=== PATIENT | female | born 1985 | race Caucasian/White ===

== ENCOUNTER → 2017-11-10 13:31 | Outpatient (CLI) | payer OTHER, SELFPAY ==
[2017-11-10 19:13] LABS: Chlamydia Trachomatis by PCR Negative (Negative); Neisserai gonorrhoeae by PCR Negative (Negative); Probe Check PASS; Sample Adequacy Control PASS; Specimen Processing Control PASS
[2017-11-18 09:59] LABS: HPV Reflexed? NOT INDICATED
== END ==
PROVIDERS: Visit Provider Obstetrics & Gynecology
DX: Z34.81 Encounter for supervision of other normal pregnancy, first trimester (principal); Z12.4 Encounter for screening for malignant neoplasm of cervix; Z11.3 Encounter for screening for infections with a predominantly sexual mode of transmission
CPT/HCPCS: 87491; 87591; 88175; G0145

== ENCOUNTER 2017-12-07 06:00 | Day surgery (SDC) | payer OTHER, SELFPAY ==
[2017-12-07] VITALS (7 sets, daily range): BP systolic 111–119; BP diastolic 63–72; PULSE 60–71; RESP 16–18; TEMP 36.5–36.6; O2SAT 96–100; BMI 29.5
--- NOTE | 2017-12-07 07:01 | PCM.DC.D&C ---
Discharge Diet: No Restrictions Discharge Activity: May Shower, May Take a Tub Bath Return to work on:: 12/09/17 May resume sexual activity in: 1 week Weight Bearing Status: Weight bearing as tolerated Call your doctor if you observe: Fever of 101 or Higher, Using more than one pad per hour, Uncontrolled pain Additional Instructions: Take Tylenol for mild pain. May add either two Aleve or three (200 mg tab) Ibuprofen every 8 hr as needed for pain. Allergies/Adverse Reactions: Allergies bee venom protein (honey bee) Allergy (Verified 12/07/17 06:23) Anaphylaxis Medications to take at Discharge Vits [Prenatabs FA ] 1 tab PO DAILY 01/15/14 Ibuprofen [Motrin] 800 mg PO TID PRN PRN #30 tablet 08/12/16 Primary Care Physician: Edna Pereyra MD [Primary Care Provider] - Test Results: Test results from this visit will be discussed in further detail at your follow-up appointment, if applicable. Please Follow Up With: Cathy King MD - [phone] When: in 2 wks as planned. Proposed Discharge Date: 12/07/17
--- NOTE | 2017-12-07 07:04 | DCINST_ITS ---
Discharge Diet: No Restrictions Discharge Activity: May Shower, May Take a Tub Bath Return to work on:: 12/09/17 May resume sexual activity in: 1 week Weight Bearing Status: Weight bearing as tolerated Call your doctor if you observe: Fever of 101 or Higher, Using more than one pad per hour, Uncontrolled pain Additional Instructions: Take Tylenol for mild pain. May add either two Aleve or three (200 mg tab) Ibuprofen every 8 hr as needed for pain. Allergies/Adverse Reactions: Allergies bee venom protein (honey bee) Allergy (Verified 12/07/17 06:23) Anaphylaxis Medications to take at Discharge Vits [Prenatabs FA ] 1 tab PO DAILY 01/15/14 Ibuprofen [Motrin] 800 mg PO TID PRN PRN #30 tablet 08/12/16 Primary Care Physician: Edna Pereyra MD [Primary Care Provider] - Test Results: Test results from this visit will be discussed in further detail at your follow- up appointment, if applicable. Please Follow Up With: Cathy King MD - [phone] When: in 2 wks as planned. Proposed Discharge Date: 12/07/17
--- NOTE | 2017-12-07 07:30 | POC_PTH ---
PATIENT: MICHELLE GARNETT [place] [facility] [id number] AGE/SX: 32/F ROOM: RE12/07/[address]: Dr. Cathy King MD : [id number] BED: DIS: 12/07/2017 SPEC #: [id number] RECD: 12/07/17 09:07 STATUS: ARTHUR JEANETH #: [id number] CHAPINCITO: 12/07/17 07:[address]: Cathy King DEPT: SURGICAL PATHOLOGY RECD BY: Francisco Javier Jessica ENTERED: 12/07/17 09:33 SP TYPE: PROD CONC OTHR DR: Dr. Edna Pereyra MD Tissues: Product of conception, NOS Procedures: Surgery Specimen Level IV HEADER OPERATION: Dilation and curettage, suction PRE-OP DIAGNOSIS: Missed TISSUE SUBMITTED: Products of conception MICROSCOPIC DIAGNOSIS Products of conception: Decidua, gestational endometrium and immature chorionic villi (products of conception). SJ:bryan 12/08/17 MICROSCOPIC DESCRIPTION Slides are reviewed. GROSS DESCRIPTION Received in fixative is one container labeled with the patient's name and designated products of conception. The specimen consists of multiple irregular fragments of pink-red soft tissue that in aggregate measure 7 x 8 x 3 cm. tissue is not identified. Research Environmental Scientist tissue is submitted in two cassettes. / MONSE:bryan 12/07/17 TC:5 CPT: 58808
--- NOTE | 2017-12-07 10:09 | PCM.OP.BLANK ---
Operative Report Date of Procedure: 12/07/17 - 9 wk missed SAB PROCEDURE: Suction Dilation and curettage Preoperative Diagnosis: Missed , 9 wk EGA Postop diagnosis: Missed , 9 wk EGA Anesthesia: MAC IV sedation Lakshmi Paredes MD 10 cc 1% lidocaine with 1: 100, 000 epinephrine paracervical block (mamie king) Surgeon: Cathy King MD EBL: Minimal for case Drains: Red britton, minimal clear yellow urine Complications: none Fluids: replacement Findings: Parous cervix. Uterus sounds to 12 cm Narrative account After the R,B,Alternatives of the procedure were reviewed with the patient and her , informed consent was obtained. The patient was taken to the operating room with an IV running and placed in dorsal supine position of the operating table. She was given MAC IV sedation and repositioned to the dorsal lithotomy position and prepped and draped in the usual sterile fashion. A graves speculum was placed into the vagina and the cervix was brought into view. The cervix was parous appearing. A single toothed tenaculum was applied to the anterior lip of the cervix. The cervix was instilled with 10 cc of 1% lidocaine with epinephrine as a paracervical block using a 20 G spinal needle. The cervix was then sequentially dilated to allow admission of the 9 mm curved suction curette tip into the endometrial cavity to the fundus. A suction D and C was then performed followed by a sharp curettage. At sharp curettage good crei was noted. One final pass was conducted with the curved suction curette. Excellent hemostasis was noted. The single toothed tenaculum was removed from the cervix and a RayTec was used to remove any remaining tissue and blood from the upper vagina and cervix. The procedure was terminated. The speculum was removed. The patient was returned to dorsal supine position and awakened from IV sedation and transferred to her recovery room bed in stable condition after tolerating the procedure well. Sponge, lap, needle and instrument counts were correct x two. medications given intraoperatively included 10 cc of 1% lidocaine with 1:100,000 epinephrine instilled as a paracervical block and Toradol 30 mg IV times one. For a complete listing of the medications given intraoperatively, see the anesthesia record.
== END 2017-12-07 08:50 | disposition home or self-care (01) ==
LOC: SDC 06:02 → AC 06:03
PROVIDERS: Family Provider Internal Medicine; PCP Internal Medicine; Visit Provider Obstetrics & Gynecology
PROC: (CPT 59812; principal; 2017-12-07 07:15)
DX: O03.4 Incomplete spontaneous abortion without complication (principal)
CPT/HCPCS: 59812; 36415; 86850; 86900; 88305; 90384; J7120; J2790

== ENCOUNTER 2018-04-18 03:35 | Emergency (ER) | payer OTHER, SELFPAY ==
[2018-04-18 03:36] VITALS: BP 132/81; PULSE 65; RESP 16; TEMP 36.3; O2SAT 98; BMI 30.2
[2018-04-18] MEDS: Mag Hydrox/Al Hydrox/Simeth 30 ML UDC PO (04:18)
[2018-04-18 04:23] LABS: Absolute Lymphocyte Count 2.23 X10^3/ul (0.83-4.51); Absolute Neutrophil Count 5.5 X10^3/uL (2.0-7.7); Basophil# 0.01 X10^3/uL; Basophil% 0.1 % (0-1); Eosinophil# 0.08 X10^3/uL; Hemoglobin 12.6 g/dl (12.0-15.0); Lymphocyte # 2.23 X10^3/ul (4.0); Lymphocyte % 26.7 % (19-41); Mean Corp Hgb Conc 33.2 g/gl (32-36); Mean Corpuscular Hgb 28.8 pg (27.0-32.0); Mean Corpuscular Volume 86.8 fL (81-99); Mean Platelet Vol. 10.7 fl (6.2-12.0); Monocyte# 0.54 X10^3/uL; Monocyte% 6.5 % (0-10); Neutrophil % 65.7 % (47-70); POSITIVE COUNT NO; POSITIVE DIFFERENTIAL NO; POSITIVE MORPHOLOGY NO; Platelet Count 245 K/mm3 (150-450); RBC Distribution Width CV 12.6 % (11.6-14.6); RBC Distribution Width SD 39.4 fl (35.1-43.9); Red Blood Count 4.38 M/mm3 (4.2-5.4); White Blood Count 8.4 K/mm3 (4.4-11.0)
[2018-04-18 04:51] LABS: AST(SGOT) 13 U/L (15-37); Alanine Aminotransfer ALT/SGPT 20 U/L (13-56); Albumin, Serum 3.6 g/dL (3.2-5.0); Alkaline Phosphatase 56 U/L (45-117); Anion Gap 9 (5-15); BUN 9 mg/dL (7-18); BUN/Creat Ratio 14.3 RATIO (10-20); Calcium,Total 9.4 mg/dL (8.5-10.1); Chloride 104 mmol/L (98-107); Creatinine, Serum 0.63 mg/dL (0.55-1.02); EST Glomerular Filtration Rate 117 mL/min (>60); Est Glom Filt Rate - Afr Amer 142 mL/min (>60); Estimated Creatinine Clearance 131.72 ml/min; Globulin 3.7 g/dL (2.2-4.2); Glucose 102 mg/dL (74-106); Lipase 76 U/L (73-393); Potassium 3.7 mmol/L (3.5-5.1); Protein, Total 7.3 g/dL (6.4-8.2); Sodium Level 139 mmol/L (136-145)
--- NOTE | 2018-04-18 04:56 | ED.VISSUMM ---
- ER Visit Summary Date of Service: 04/18/18 Chief Complaint: Abdominal pain History of Present Illness: The patient is a 32 F who presents with epigastric abdominal pain. This began after eating pizza last night. She describes it as aching. She complains of some minimal nausea. No vomiting. No history of prior similar symptoms. She took Tums without relief. No history of gastroesophageal reflux No fever. Physical Examination: Afebrile vitals are normal Patient resting comfortably Moist mucous membranes Heart regular rate and rhythm Lungs are clear Abdomen soft nontender nondistended Alert Test Results: CBC CMP and lipase are normal. Emergency Department Course and Treatment: Patient was treated with a GI cocktail here and reports improvement on reevaluation. We will start her on Prilosec. This may be related to a component of GERD or gastritis. She understands to return for new or worsening symptoms and otherwise to follow-up with her primary care physician. Treatment Plan: [] Disposition: Discharge Impression: Epigastric abdominal pain This note was generated with [employer] dictation software. It may contain incorrect words, spelling, and punctuation that were not noted in review of the chart prior to signing ED Disposition - Plan for ED Patient: Chief Complaint: Abd Pain Referrals: Edna Pereyra MD [Primary Care Provider] -
--- NOTE | 2018-04-18 04:57 | ED.DEP ---
ED Disposition - Plan for ED Patient: Chief Complaint: Abd Pain Instructions: ED Abdominal Pain Unkn Cause, ED GERD Prescriptions: Omeprazole [Prilosec] 20 mg PO DAILY #30 cap Referrals: Edna Pereyra MD [Primary Care Provider] -
[2018-04-18 05:05] VITALS: BP 118/63; PULSE 72; RESP 15; O2SAT 98
--- OUTSIDE RECORDS SUMMARY | 2018-07-20 15:54 | XMS RPT_ITS ---
:1985 Author Organization OHIP Care Team Providers Name Role Phone Edna Pereyra Primary Care Unavailable Jairo Patiño Attending Unavailable Cathy Norton Attending Unavailable Primay Care [place], No Primary Care Unavailable Cathy Norton Attending Unavailable Cathy Norton Referring Unavailable Edna Pereyra Primary Care Unavailable PROBLEMS PROBLEMS DATE TYPE CONDITION / CODE ATTENDING STATUS SOURCE 11/10/2017 Unknown Z11.3 - Encounter Cathy Norton Active [place] for screening for Community infections with a Hospital predominantly Repository sexual mode of transmission / Z11.3(ICD-10) 11/10/2017 Unknown Z12.4 - Encounter Cathy Norton Active [place] for screening for Community malignant neoplasm Hospital of cervix / Repository Z12.4(ICD-10) 11/10/2017 Unknown Z34.81 - Encounter Cathy Norton Active [place] for supervision of Community other normal Hospital , first Repository trimester / Z34.81(ICD-10) PROCEDURES PROCEDURES No Procedure Records FoundRESULTS RESULTS EMERGENCY DEPARTMENT Observed: 04/18/2018 Status: F Source: [place] SUMMARY [facility] AM [facility] Medical Records Department [address] [place] [address] Emergency Department Summary 04/18/18 0456 MR#: [id number] Acct: [id number] Name: MICHELLE GARNETT Rep #: [id number] : 1985 32 From: Jairo Patiño MD PCP: Edna Pereyra MD Status: REG ER - ER Visit Summary Date of Service: 04/18/18 Chief Complaint: Abdominal pain History of Present Illness: The patient is a 32 F who presents with epigastric abdominal pain. This began after eating pizza last night. She describes it as aching. She complains of some minimal nausea. No vomiting. No history of prior similar symptoms. She took Tums without relief. No history of gastroesophageal reflux No fever. Physical Examination: Afebrile vitals are normal Patient resting comfortably Moist mucous membranes Heart regular rate and rhythm Lungs are clear Abdomen soft nontender nondistended Alert Test Results: CBC CMP and lipase are normal. Emergency Department Course and Treatment: Patient was treated with a GI cocktail here and reports improvement on reevaluation. We will start her on Prilosec. This may be related to a component of GERD or gastritis. She understands to return for new or worsening symptoms and otherwise to follow-up with her primary care physician. Treatment Plan: [] Disposition: Discharge Impression: Epigastric abdominal pain This note was generated with MD [employer] dictation software. It may contain incorrect words, spelling, and punctuation that were not noted in review of the chart prior to signing ED Disposition - Plan for ED Patient: Chief Complaint: Abd Pain Referrals: Edna Pereyra MD [Primary Care Provider] - What to do if you have Problems For any increased pain, shortness of breath, bleeding, nausea or vomiting, chest pain, or any unexpected problems, contact your Primary Care Provider. Call [facility] ([phone]) or report to the closest Emergency Room. Call 911 if necessary. 04/18/18 0458 <Electronically signed by Jairo Patiño MD> Date Jairo Patiño MD Cosigner Signature (If Indicated): Date CC: Edna Pereyra MD DISCHARGE INSTRUCTION Observed: 04/18/2018 Status: F Source: [place] 4:58 AM [facility] REPOSITORY [facility] Medical Records Department [address] [place] [address] Discharge Instruction 04/18/18456 MR#: [id number] Acct: [id number] Name: MICHELLE GARNETT Rep #: [id number] : 1985 32 From: Jairo Patiño MD PCP: Edna Pereyra MD Status: REG ER ED Disposition - Plan for ED Patient: Chief Complaint: Abd Pain Instructions: ED Abdominal Pain Unkn Cause, ED GERD Prescriptions: Omeprazole [Prilosec] 20 mg PO DAILY #30 cap Referrals: Edna Pereyra MD [Primary Care Provider] - What to do if you have Problems For any increased pain, shortness of breath, bleeding, nausea or vomiting, chest pain, or any unexpected problems, contact your Primary Care Provider. Call [facility] ([phone]) or report to the closest Emergency Room. Call 911 if necessary. 04/18/18457 <Electronically signed by Jairo Patiño MD> Date Jairo Patiño MD Cosigner Signature (If Indicated): Date CC: Edna Pereyra MD CBC W/DIFF, AUTOMATED Collected: 04/18/2018 Status: F Source: [place] 4:06 AM [facility] REPOSITORY TYPE CODE TESTS RESULT OUT OF RANGE REFERENCE UNITS LAB L100.1000 4.4-11.0 K/mm3 Normal WBC 8.4 LAB L100.1200 4.2-5.4 M/mm3 Normal RBC 4.38 LAB L100.1300 12.0-15.0 g/dl Normal HGB 12.6 LAB L100.1400 37-47 % Normal HCT 38.0 LAB L100.1500 81-99 fL Normal MCV 86.8 LAB L100.1600 27.0-32.0 pg Normal MCH 28.8 LAB L100.1700 32-36 g/gl Normal MCHC 33.2 LAB L100.1810 11.6-14.6 % Normal RDW CV 12.6 LAB L100.1820 35.1-43.9 fl Normal RDW SD 39.4 LAB L100.1900 150-450 K/mm3 Normal PLT 245 LAB L100.2000 6.2-12.0 fl Normal MPV 10.7 LAB L100.2100 47-70 % Normal NEUT% 65.7 LAB L100.2200 19-41 % Normal LY% 26.7 LAB L100.2300 0-10 % Normal MONO% 6.5 LAB L100.2400 0-5 % Normal EO% 1.0 LAB L100.2500 0-1 % Normal BASO% 0.1 LAB L100.2550 0.0-0.9 % Normal IM GRAN % 0.000 Result Comment: IG% - Immature Granulocytes (promyelocytes, myelocytes and metamyelocytes) > 1% indicates that a LEFT SHIFT is Present. LAB L100.2620 2.0-7.7 X10 3/uL Normal Absolute Neut 5.5 LAB L100.2720 0.83-4.51 X10 3/ul Normal Absolute Lymph 2.23 Performed By: #### L100.0100 #### [facility] [address] [place], [place], [address] COMPREHENSIVE METABOLIC Collected: 04/18/2018 Status: F Source: [facility] 4:06 AM [facility] REPOSITORY TYPE CODE TESTS RESULT OUT OF RANGE REFERENCE UNITS LAB L501.0100 74-106 mg/dL Normal GLU 102 Result Comment: Fasting Glucose result from 100 to 125 mg/dL suggests IMPAIRED HOMEOSTASIS per A.D.A. criteria. Please note revised GLUCOSE reference range effective 2017. LAB L501.1000 7-18 mg/dL Normal BUN 9 LAB L501.1100 0.55-1.02 mg/dL Normal CREAT,SERUM 0.63 Result Comment: The validity of the calculated GFR AND GFRAA in patients over 70 years has not been determined. Clinical correlation is essential. LAB L501.1110 >60 mL/min Normal EST GFR 117 Result Comment: Non- GFR Calc LAB L501.1115 >60 mL/min Normal EST GFR - AA 142 Result Comment: GFR Calc LAB L501.1255 ml/min Normal Estimated CRCL 131.72 LAB L501.1300 10-20 RATIO BUN/CRE Normal 14.3 LAB L501.1500 6.4-8. g/dL 2 T PROT Normal 7.3 LAB L501.1800 3.2-5. g/dL 0 ALB Normal 3.6 LAB L501.1950 2.2-4. g/dL 2 GLOB Normal 3.7 LAB L501.2000 0.9-2. RATIO 4 A/G Normal 1.0 LAB L501.2200 8.5-10 mg/dL .1 CA Normal 9.4 LAB L501.4100 15-37 U/L Low AST 13 LAB L501.4305 45-117 U/L ALK P Normal 56 LAB L501.4405 13-56 U/L ALT Normal 20 LAB L501.4600 0.20-1 mg/dL .00 T BILI Normal 0.40 LAB L501.5300 136-14 mmol/L 5 NA Normal 139 LAB L501.5600 3.5-5. mmol/L 1 K Normal 3.7 LAB L501.5900 98-107 mmol/L CL Normal 104 LAB L501.6100 21.0-3 mmol/L 2.0 CO2 Normal 26.0 LAB L501.6200 5-15 GAP Normal 9 Performed By: #### L500.4050, L501.2450 #### [facility] [address] [place], [place], [id number] LIPASE Collected: 04/18/2018 Status: F Source: [place] 4:06 AM [facility] REPOSITORY TYPE CODE TESTS RESULT OUT OF RANGE REFERENCE UNITS LAB L501.2450 73-393 U/L Normal LIPASE 76 Performed By: #### L500.4050, L501.2450 #### [facility] [address] [place], [address] PROGRESS Observed: 03/28/2018 Status: COMPLETED Source: [place] 6:12 PM [facility] [place] REPOSITORY HNO ID: [id number] Author: Shola Torres) Madhuri Service: (none) Author Type: Physician Design Verification Engineer Type: Progress Notes Filed: 03/28/2018 6:14 PM Note Text: Subjective HPI Patient presents with left pain off and on over the past week. She is flying to [employer] tomorrow and wanted to make sure she didn't have an ear infection. No cough or congestion. No fever. No discharge out of the ear. No difficulty hearing. She states her daughter does have a cold right now and has an ear infection herself. No OTC meds taken. Review of Systems HENT: Positive for ear pain. All other systems reviewed and are negative. PAST MEDICAL HISTORY Diagnosis Date - Chronic low back pain No current outpatient prescriptions on file. No current facility-administered medications for this visit. PAST SURGICAL HISTORY Procedure Laterality Date - PAST SURGICAL HISTORY OF pin right middle finger fx FAMILY HISTORY Problem Relation Age of Onset - Hypertension Mother - Hypertension Father - Breast Cancer Maternal Grandmother - Stroke Maternal Grandfather Social History Substance Use Topics - Smoking status: Never Smoker - Smokeless tobacco: Never Used - Alcohol use Yes Comment: very occasional BP 102/70 Pulse 64 Temp 37 ?C (98.6 ?F) (Tympanic) Resp 18 Wt 88.7 kg (195 lb 9.6 oz) Objective Physical Exam Constitutional: She is oriented to person, place, and time and well-developed, well-nourished, and in no distress. HENT: Head: Normocephalic and atraumatic. Right Ear: Tympanic membrane and ear canal normal. No drainage, swelling or tenderness. No mastoid tenderness. Tympanic membrane is not erythematous and not bulging. No middle ear effusion. Left Ear: Tympanic membrane, external ear and ear canal normal. No drainage, swelling or tenderness. No mastoid tenderness. Tympanic membrane is not erythematous and not bulging. No middle ear effusion. Nose: Nose normal. Mouth/Throat: Uvula is midline, oropharynx is clear and moist and mucous membranes are normal. Neck: Normal range of motion. Neck supple. Cardiovascular: Normal rate, regular rhythm and normal heart sounds. Pulmonary/Chest: Effort normal and breath sounds normal. Musculoskeletal: Normal range of motion. Lymphadenopathy: She has no cervical adenopathy. Neurological: She is alert and oriented to person, place, and time. Skin: Skin is warm and dry. No rash noted. Psychiatric: Affect and judgment normal. Nursing note and vitals reviewed. ASSESSMENT/PLAN: 1. Otalgia of left ear - ICD9: 388.70, ICD10: H92.02 Patient's exam is unremarkable. She may have eustachian tube dysfunction. I recommended Motrin and Claritin. Follow-up in the next week if not feeling better. She is agreeable to this. TERESSA WellerOV Observed: 03/28/2018 Status: COMPLETED Source: [place] 5:30 PM [facility] REPOSITORY Office Visit (WSTR) MICHELLE GARNETT ([id number]) 1985 F Date Time Provider Department 03/28/18 5:30 PM SHOLA WALDEN) [facility] During your visit today, we recorded the following information about you: Temperature Pulse Respiration Blood pressure 98.6 degrees 64/minute 18/minute 102/70 Weight 88.7 kg Shola Walden PA-C 03/28/2018 6:14 PM Signed Subjective HPI Patient presents with left pain off and on over the past week. She is flying to [employer] tomorrow and wanted to make sure she didn't have an ear infection. No cough or congestion. No fever. No discharge out of the ear. No difficulty hearing. She states her daughter does have a cold right now and has an ear infection herself. No OTC meds taken. Review of Systems HENT: Positive for ear pain. All other systems reviewed and are negative. PAST MEDICAL HISTORY Diagnosis Date - Chronic low back pain No current outpatient prescriptions on file. No current facility-administered medications for this visit. PAST SURGICAL HISTORY Procedure Laterality Date - PAST SURGICAL HISTORY OF pin right middle finger fx FAMILY HISTORY Problem Relation Age of Onset - Hypertension Mother - Hypertension Father - Breast Cancer Maternal Grandmother - Stroke Maternal Grandfather Social History Substance Use Topics - Smoking status: Never Smoker - Smokeless tobacco: Never Used - Alcohol use Yes Comment: very occasional BP 102/70 Pulse 64 Temp 37 ?C (98.6 ?F) (Tympanic) Resp 18 Wt 88.7 kg (195 lb 9.6 oz) Objective Physical Exam Constitutional: She is oriented to person, place, and time and well-developed, well-nourished, and in no distress. HENT: Head: Normocephalic and atraumatic. Right Ear: Tympanic membrane and ear canal normal. No drainage, swelling or tenderness. No mastoid tenderness. Tympanic membrane is not erythematous and not bulging. No middle ear effusion. Left Ear: Tympanic membrane, external ear and ear canal normal. No drainage, swelling or tenderness. No mastoid tenderness. Tympanic membrane is not erythematous and not bulging. No middle ear effusion. Nose: Nose normal. Mouth/Throat: Uvula is midline, oropharynx is clear and moist and mucous membranes are normal. Neck: Normal range of motion. Neck supple. Cardiovascular: Normal rate, regular rhythm and normal heart sounds. Pulmonary/Chest: Effort normal and breath sounds normal. Musculoskeletal: Normal range of motion. Lymphadenopathy: She has no cervical adenopathy. Neurological: She is alert and oriented to person, place, and time. Skin: Skin is warm and dry. No rash noted. Psychiatric: Affect and judgment normal. Nursing note and vitals reviewed. ASSESSMENT/PLAN: 1. Otalgia of left ear - ICD9: 388.70, ICD10: H92.02 Patient's exam is unremarkable. She may have eustachian tube dysfunction. I recommended Motrin and Claritin. Follow-up in the next week if not feeling better. She is agreeable to this. Shola Walden PA-C Referring Provider: SELF [200] Allergies As of Date: 03/28/2018 (No Known Allergies) Date Reviewed: 03/28/2018 Reviewed by: Lisa Gimenez LPN - Fully Assessed Reason for Visit: left ear pain [Other] Cmt: off and on x 1 week Primary Visit Diagnosis:Otalgia of left ear [H92.02] Problem List As Of Date: 03/28/2018 (None) Encounter Status:Closed by SHOLA WALDEN PA-C on 03/28/18 OPERATIVE REPORT Observed: 12/07/2017 Status: F Source: [place] 2:27 PM [facility] REPOSITORY [facility] Medical Records Department [address] [place] [address] Operative Report 12/07/17 1009 MR#: [id number] Acct: [id number] Name: MICHELLE GARNETT Rep #: [id number] : 1985 32 From: Cathy Norton MD PCP: Edna Pereyra MD Status: [facility] Location: [facility] Operative Report Date of Procedure: 12/07/17 - 9 wk missed SAB PROCEDURE: Suction Dilation and curettage Preoperative Diagnosis: Missed , 9 wk EGA Postop diagnosis: Missed , 9 wk EGA Anesthesia: MAC IV sedation Lakshmi Paredes MD 10 cc 1% lidocaine with 1: 100, 000 epinephrine paracervical block (mamie norton) Surgeon: Cathy Norton MD EBL: Minimal for case Drains: Red britton, minimal clear yellow urine Complications: none Fluids: replacement Findings: Parous cervix. Uterus sounds to 12 cm Narrative account After the R,B,Alternatives of the procedure were reviewed with the patient and her , informed consent was obtained. The patient was taken to the operating room with an IV running and placed in dorsal supine position of the operating table. She was given MAC IV sedation and repositioned to the dorsal lithotomy position and prepped and draped in the usual sterile fashion. A graves speculum was placed into the vagina and the cervix was brought into view. The cervix was parous appearing. A single toothed tenaculum was applied to the anterior lip of the cervix. The cervix was instilled with 10 cc of 1% lidocaine with epinephrine as a paracervical block using a 20 G spinal needle. The cervix was then sequentially dilated to allow admission of the 9 mm curved suction curette tip into the endometrial cavity to the fundus. A suction D and C was then performed followed by a sharp curettage. At sharp curettage good crei was noted. One final pass was conducted with the curved suction curette. Excellent hemostasis was noted. The single toothed tenaculum was removed from the cervix and a RayTec was used to remove any remaining tissue and blood from the upper vagina and cervix. The procedure was terminated. The speculum was removed. The patient was returned to dorsal supine position and awakened from IV sedation and transferred to her recovery room bed in stable condition after tolerating the procedure well. Sponge, lap, needle and instrument counts were correct x two. medications given intraoperatively included 10 cc of 1% lidocaine with 1:100,000 epinephrine instilled as a paracervical block and Toradol 30 mg IV times one. For a complete listing of the medications given intraoperatively, see the anesthesia record. 12/07/17 1427 <Electronically signed by Cathy Norton MD> Date Cathy Norton MD CC: Edna Pereyra MD; Cathy Norton MD Signed PRODUCTS OF CONCEPTION Observed: 12/07/2017 Status: F Source: [place] 7:30 AM [facility] REPOSITORY Patient: MICHELLE GARNETT : 1985 () Acct Num: [id number] Phys: Christine ALCALA,Cathy Unit Num: [id number] Loc: [facility] Specimen: [id number] Received: 12/07/17906 Spec Type: PROD CONC TISSUES TISSUES: Product of conception, NOS GROSS DESCRIPTION Received in fixative is one container labeled with the patient's name and designated products of conception. The specimen consists of multiple irregular fragments of pink-red soft tissue that in aggregate measure 7 x 8 x 3 cm. tissue is not identified. Trust And Estates Attorney tissue is submitted in two cassettes. / Kristen 12/07/17 TC:5 CPT: 05675 HEADER OPERATION: Dilation and curettage, suction PRE-OP DIAGNOSIS: Missed TISSUE SUBMITTED: Products of conception MICROSCOPIC DESCRIPTION Slides are reviewed. MICROSCOPIC DIAGNOSIS Products of conception: Decidua, gestational endometrium and immature chorionic villi (products of conception). Kristen 12/08/17 Signed Shaun Graham 12/08/17 <signature on file> Performed By: #### PPOC #### [facility] [address] [place], [address] DISCHARGE INSTRUCTION Observed: 12/07/2017 Status: F Source: [place] 7:04 AM [facility] REPOSITORY [facility] Medical Records Department [address] [place] [address] Instructions for Home/Discharge Instructions 12/07/17 07 MR#: [id number] Acct: [id number] Name: MICHELLE GARNETT Rep #: [id number] : 1985 32 From: Cathy Norton MD PCP: Edna Pereyra MD Status: REG [facility] Discharge Diet: No Restrictions Discharge Activity: May Shower, May Take a Tub Bath Return to work on:: 12/09/17 May resume sexual activity in: 1 week Weight Bearing Status: Weight bearing as tolerated Call your doctor if you observe: Fever of 101 or Higher, Using more than one pad per hour, Uncontrolled pain Additional Instructions: Take Tylenol for mild pain. May add either two Aleve or three (200 mg tab) Ibuprofen every 8 hr as needed for pain. Allergies/Adverse Reactions: Allergies bee venom protein (honey bee) Allergy (Verified 12/07/17 06:23) Anaphylaxis Medications to take at Discharge Vits [Prenatabs FA ] 1 tab PO DAILY 01/15/14 Ibuprofen [Motrin] 800 mg PO TID PRN PRN #30 tablet 08/12/16 Primary Care Physician: Edna Pereyra MD [Primary Care Provider] - Test Results: Test results from this visit will be discussed in further detail at your follow-up appointment, if applicable. Please Follow Up With: Cathy Norton MD - [phone] When: in 2 wks as planned. Proposed Discharge Date: 12/07/17 12/07/17 07 <Electronically signed by Cathy Norton MD> Date Cathy Norton MD CC: Edna Pereyra MD TYPE AND SCREEN Collected: 12/07/2017 Status: F Source: [place] 6:30 AM [facility] REPOSITORY Order Comment: Reason for Type AND Screen/Red Cells: SURGERY TYPE CODE TESTS RESULT OUT OF RANGE REFERENCE UNITS LAB B10.0800 O Normal BLOOD TYPE GEL NEGATIVE LAB B100.4000 Normal Antibody NEGATIVE Screen Performed By: #### B101.7450 #### [facility] [address] [place], [address] RHOGAM Collected: 12/07/2017 Status: F Source: [place] 6:30 AM [facility] REPOSITORY TYPE CODE TESTS RESULT OUT OF REFERENCE UNITS RANGE LAB U100.2500 [id number] TRANSFUSED PRODUCT: Rho(D) Immune Globulin RhoGam COUNT: 1 Performed By: #### U100.2500 #### [facility] - refer to report for specific site CT/NG [facility] BY PCR Collected: 11/10/2017 Status: F Source: [place] 9:45 AM [facility] REPOSITORY TYPE CODE TESTS RESULT OUT OF RANGE REFERENCE UNITS LAB L8200.2100 Negative Normal Chlam Negative Trac PCR LAB L8200.2200 Negative Normal NG by Negative PCR Performed By: #### L8200.2000 #### [facility] [address] [place], [place], [address] PAP I-G W/RFX HRHPV Collected: 11/10/2017 Status: F Source: [place] 9:45 AM [facility] REPOSITORY Order Comment: CYTOLOGY INFORMATION: - CLINICAL INFORMATION: - DATE LMP/MENOPAUSE: 09/04/17 LMP - COLLECTION VIAL: Thin Prep Vial - FORMWORK CARPENTER SOURCE: CERVICAL/ENDOCERVICAL - COLLECTION TECHNIQUE: BRUSH/SPATULA Specimen Comment: [id number] Specimen Comment: No. of containers..01 ThinPrep Vial TYPE CODE TESTS RESULT OUT OF RANGE REFERENCE UNITS LAB L7400.0800 . Normal DIAGN Comment Result Comment: NEGATIVE FOR INTRAEPITHELIAL LESION AND MALIGNANCY. CELLULAR CHANGES ASSOCIATED WITH INFLAMMATION ARE PRESENT. LAB L7400.0900 . Normal ADEQ Comment Result Comment: Satisfactory for evaluation. Endocervical and/or squamous metaplastic cells (endocervical component) are present. LAB L7400.1400 . Normal PERFORM Comment Result Comment: Ramy Ulloa Armed Security Professional (ASCP) LAB L7400.2575 . Normal TEST METHOD Comment Result Comment: This liquid based ThinPrep(R) pap test was screened with the use of an image guided system. LAB L7400.2600 . Normal . COMM LAB L7400.2700 . Normal PAPSMR Comment Result Comment: The Pap smear is a screening test designed to aid in the detection of premalignant and malignant conditions of the uterine cervix. It is not a diagnostic procedure and should not be used as the sole means of detecting cervical cancer. Both false-positive and false-negative reports do occur. LAB L7400.2800 . Normal HPV RFLX Comment Result Comment: The HPV DNA reflex criteria were not met with this specimen result therefore, no HPV testing was performed. Performed at: [address] [id number] [employer]: Tameka Lopez MD, Phone: [phone] Performed By: #### L7400.0350 #### [facility] (refer to report for specific site) refer to report for address and phone number ALLERGIES ALLERGIES DATE TYPE / CODE NAME / CODE REACTION SEVERITY SOURCE 12/07/2017 Drug bee venom Anaphylaxis Unknown [place] Allergy/416 protein (honey [facility] 737240(SNOM bee)/[id number]( Hospital ED CT) RXNORM) Repository 01/15/2014 Drug No Known Unknown [place] Allergy/416 Allergies/S18526 [facility] 670907(SNOM 0388(RXNORM) Hospital ED CT) Repository Drug NO KNOWN [facility] Class/21996 ALLERGIES [place] 1003(SNOMED Repository CT) ENCOUNTERS ENCOUNTERS ADMIT/DISCHARGE ACCOUNT ADMITTING ENCOUNTER LOCATION SOURCE NUMBER CLASS 04/18/2018/04/18/20 [id number] Emergency [address] ing:ED Repository 03/28/2018/03/30/20 [id number] Ambulatory [address] [place] Repository 12/07/2017/12/08/19 [id number] Ambulatory [address] ing:SDCRoom: Repository AC16 11/10/2017 [id number] Ambulatory [place] [facility] ing:LABSPEC Repository PAYERS PAYERS ENCOUNTER GUARANTOR PAYER SUBSCRIBER SOURCE 04/18/2018 MICHELLE Russell Primary PAULINO Kelly [id number] Insurance:[facility] MEENANDOB: Community [place] CARE [id number] [id number]: Repository [address]Rur: [phone]) [id number] [phone] (HP) Date:4633-15-57OB [address], [place] [address]QY: 04/18/2018 Secondary NOT GIVENUNK [place] Insurance:SELF PAY [facility] Number: Effective Repository Date:2018-04-18 12/07/2017 MICHELLE Russell Primary PAULINO Kelly [id number] Insurance:AUCAREPol MEENANDOB: [facility] Number: [id number] [id number] Repository [address]Sie: ([phone]) Date:9263-12-30AX [phone] () [place] [address]YE: 12/07/2017 Secondary NOT GIVENUNK [place] Insurance:SELF PAY [facility] Number: Effective Repository Date:2017-12-06 11/10/2017 Michelle Kelly [id number] Insurance:[employer]ULTCAREPol MEENANDOB: Community [facility] Number: [id number] [id number] Repository [id number]: ([phone]) Date:[id number] [phone] () [address] [address]YZ: 11/10/2017 Secondary NOT GIVENUNK Leticia Insurance:SELF PAY [facility] Number: Effective Repository Date:2017-11-10
== END 2018-04-18 05:06 | disposition home or self-care (01) ==
LOC: ED 04:02
PROVIDERS: Emergency Provider Emergency Medicine; Family Provider Internal Medicine; PCP Internal Medicine
DX: R10.13 Epigastric pain (principal)
CPT/HCPCS: 80053; 83690; 85025; 99283

== ENCOUNTER → 2018-07-18 16:20 | Outpatient (CLI) | payer OTHER, SELFPAY ==
[2018-07-18 19:13] LABS: hCG Titer Quant., Serum 9816 mIU/mL (<9 non-preg)
== END ==
PROVIDERS: Visit Provider Obstetrics & Gynecology
DX: N91.2 Amenorrhea, unspecified (principal)
CPT/HCPCS: 36415; 84702

== ENCOUNTER 2018-08-04 10:36 | Day surgery (SDC) | payer OTHER, SELFPAY ==
[2018-08-04 11:00] VITALS: BP 116/67; PULSE 60; RESP 18; TEMP 36.9; O2SAT 99; BMI 29.9
--- NOTE | 2018-08-04 12:26 | DCINST_ITS ---
You will use the following diet at home:: No restrictions Your food should be the consistency of: Regular Discharge Activity: Return to Normal Activity, May Drive, May Shower Return to work on:: 08/08/18 May shower in (days): 0 May resume sexual activity in: 3 weeks Call your doctor if your incision/area has: Sudden Increased Bleeding, Increased Pain/ Swelling, Foul Smelling Discharge Call your doctor if you observe: Fever of 101 or Higher, Inability to urinate, Inability to have a bowel movement, Using more than one pad per hour, Shortness of breath, Chest pain, Calf discomfort, Uncontrolled pain Cleanse incision/area with: Soap & Water Allergies/Adverse Reactions: Allergies bee venom protein (honey bee) Allergy (Verified 08/04/18 10:59) Anaphylaxis Medications to take at Discharge Pnv No.95/Ferrous Fum/Folic AC [ Multivitamin Tablet] 1 each PO DAILY 08/03/18 Ibuprofen 600 mg PO 4X/DAY #20 tab 08/04/18 The following prescriptions were given: Ibuprofen 600 mg PO 4X/DAY #20 tab Primary Care Physician: Edna Peeryra MD [Primary Care Provider] - Test Results: Test results from this visit will be discussed in further detail at your follow- up appointment, if applicable. Please Follow Up With: Cathy King MD When: one to two weeks Proposed Discharge Date: 08/04/18
--- NOTE | 2018-08-04 12:26 | PCM.OPRPT ---
Problem List (1) Missed with demise before 20 completed weeks of gestation Status: Acute Report of Operation Date of Procedure: 08/04/18 Pre-Operative Diagnosis: Missed Post-Operative Diagnosis: Same Surgery/Procedure Performed:: Suction D and C Description of Surgical Findings:: Normal appearing cervix and vagina. Uterus 8 weeks size. Products of conception appropriate for gestational age at time of demise. technical support manager: None Type of Anesthesia:: MAC Anesthesiologist: Martell Shelton Special Medications: none Specimen's removed: Products of conception Drains: none Estimated Blood Loss (mL): minimal Fluids Replaced: 400cc LR Description of Procedure: Donna was taken to the OR with IV running. She was placed under MAC anesthesia without complication. She was then prepped and draped in the dorsal lithotomy position. The bladder was drained. The uterus was palpated and found to be about 8 weeks size. A single toothed tenaculum was placed on the anterior lip of the cervix. The cervix was then dilated to 28 Bengali without difficulty. A #8 suction curette was then placed to the fundus of the uterus and suction applied. The suction curette was then removed and a sharp curettage was performed to a gritty texture throughout the endometrial cavity. The suction curette was reintroduced suction applied and the remaining products of conception were obtained. All instruments were then removed from the vagina. Hemostasis was excellent. She was reversed from anesthesia and taken to the recovery room in stable condition. She was given rhogam intramuscularly prior to discharge. Grafts/Implants Used: none - Complications none - Admit VTE Documentation VTE Present on Admission: No VTE Mechan Device Prophylaxis: SCD's VTE Pharm Prophylaxis ordered?: No
--- NOTE | 2018-08-04 12:30 | POC_PTH ---
PATIENT: MICHELLE GARNETT [place] [facility] [id number] AGE/SX: 33/F ROOM: RE08/04/[address]: Dr. Maria Fernanda Cazares MD : [id number] BED: DIS: 08/04/2018 SPEC #: [id number] RECD: 08/04/18 13:02 STATUS: ARTHUR RERuth Ann #: [id number] CHAPINCITO: 08/04/18 12:[address]: Magnus Mace DEPT: SURGICAL PATHOLOGY RECD BY: Francisco Javier Jessica ENTERED: 08/04/18 13:21 SP TYPE: PROD CONC OTHR DR: MD Dr. Maria Fernanda Mock MD Tissues: Product of conception, NOS Procedures: Surgery Specimen Level IV HEADER OPERATION: Dilation and curettage, suction PRE-OP DIAGNOSIS: Missed TISSUE SUBMITTED: Products of conception MICROSCOPIC DIAGNOSIS Products of conception: Decidua, gestational endometrium and immature chorionic villi (products of conception). SJ:bryan 08/05/18 MICROSCOPIC DESCRIPTION Slides are reviewed. GROSS DESCRIPTION Received fresh in a vacuum trap labeled with the patient's name and designated products of conception. The specimen consists of multiple irregular fragments of walker-pink soft tissue that in aggregate measure 2.5 x 1 x 0.5 cm. The specimen is totally submitted in three cassettes. / CE:bryan 08/04/18 TC:5 CPT: 81382
--- NOTE | 2018-08-04 12:30 | OP.PCM_ITS ---
Problem List (1) Missed with demise before 20 completed weeks of gestation Status: Acute Report of Operation Date of Procedure: 08/04/18 Pre-Operative Diagnosis: Missed Post-Operative Diagnosis: Same Surgery/Procedure Performed:: Suction D and C Description of Surgical Findings:: Normal appearing cervix and vagina. Uterus 8 weeks size. Products of conception appropriate for gestational age at time of demise. broaching machine repairer: None Type of Anesthesia:: MAC Anesthesiologist: Martell Shelton Special Medications: none Specimen's removed: Products of conception Drains: none Estimated Blood Loss (mL): minimal Fluids Replaced: 400cc LR Description of Procedure: Donna was taken to the OR with IV running. She was placed under MAC anesthesia without complication. She was then prepped and draped in the dorsal lithotomy position. The bladder was drained. The uterus was palpated and found to be about 8 weeks size. A single toothed tenaculum was placed on the anterior lip of the cervix. The cervix was then dilated to 28 Indonesian without difficulty. A #8 suction curette was then placed to the fundus of the uterus and suction jacque lied. The suction curette was then removed and a sharp curettage was performed to a gritty texture throughout the endometrial cavity. The suction curette was reintroduced suction applied and the remaining products of conception were obtained. All instruments were then removed from the vagina. Hemostasis was excellent. She was reversed from anesthesia and taken to the recovery room in stable condition. She was given rhogam intramuscularly prior to discharge. Grafts/Implants Used: none - Complications none - Admit VTE Documentation VTE Present on Admission: No VTE Mechan Device Prophylaxis: SCD's VTE Pharm Prophylaxis ordered?: No
[2018-08-04 12:48] VITALS: BP 105/56; BP 116/67; PULSE 58; RESP 16; TEMP 37.2; O2SAT 94
[2018-08-04 12:55] VITALS: BP 116/67; BP 98/52; PULSE 55; RESP 16; O2SAT 95
[2018-08-04 13:00] VITALS: BP 101/54; BP 116/67; PULSE 53; RESP 16; O2SAT 96
[2018-08-04 13:10] VITALS: BP 100/59; BP 116/67; PULSE 55; RESP 16; TEMP 36.9; O2SAT 95
[2018-08-04 14:25] VITALS: BP 116/67
--- NOTE | 2018-08-05 07:53 | PCM.HP.STD ---
Problem List (1) Missed with demise before 20 completed weeks of gestation Status: Acute (2) Missed with demise before 20 completed weeks of gestation Status: Acute History of Present Illness Date of Admission: 08/04/18 Chief Complaint: demise at 8 weeks ega The patient is a 33 year old F [with embryonic demise at about 8 weeks ega. 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 Lives: Spouse/ Significant Other Smoking Status: Never smoker Alcohol: None Drugs: None Review of Systems Constitutional: Denies: Chills, Fever Cardiovascular: Denies: Chest Pain, Chest Tightness, Edema Respiratory: Denies: Cough, Shortness of Breath Gastrointestinal: Denies: Abdominal Pain Genitourinary: Denies: Dysuria Gynecological: Denies: Breast symptoms VTE Information - Inpt Only VTE Present on Admission: No VTE Mechan Device Prophylaxis: SCD's VTE Pharm Prophylaxis ordered?: No Subjective: Appears well Objective: Afeb VSS - Physical Exam General: Alert, Oriented x3, Cooperative, No apparent distress Lungs: Clear to auscultation, Normal air movement Cardiovascular: Regular rate, Regular Rhythm Abdomen: Soft, Non Tender, Non-Distended Extremities: No edema Skin: No rashes Neurological: Neuro grossly intact Psych/Mental Status: Normal Affect Vital Signs Temp Pulse Resp BP Pulse Ox 98.5 F 55 L 16 100/59 L 95 08/04/18 13:10 08/04/18 13:10 08/04/18 13:10 08/04/18 13:10 08/04/18 13:10 Oxygen Delivery Method Room Air Weight: 197 lb 5.019 oz Body Mass Index (BMI) 29.9 Intake and Output for Last 24 Hours 08/03/18 08/04/18 08/05/18 23:59 23:59 23:59 Intake Total 600 / 600 Output Total 50 / 50 Balance 550 / 550 Laboratory Tests Past 24 Hrs 08/04/18 11:10 Blood Type O NEGATIVE Antibody Screen POSITIVE H Antibody Identification ANTI-D Assessment/Plan All Active Problems Missed with demise before 20 completed weeks of gestation (Acute) Missed with demise before 20 completed weeks of gestation (Acute) Scheduled for suction d and c. Procedures, risks, and postoperative expectations discussed.
--- NOTE | 2018-08-05 07:56 | HP.PCM_ITS ---
Problem List (1) Missed with demise before 20 completed weeks of gestation Status: Acute (2) Missed with demise before 20 completed weeks of gestation Status: Acute History of Present Illness Date of Admission: 08/04/18 Chief Complaint: demise at 8 weeks ega The patient is a 33 year old F [with embryonic demise at about 8 weeks ega. 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 Lives: Spouse/ Significant Other Smoking Status: Never smoker Alcohol: None Drugs: None Review of Systems Constitutional: Denies: Chills, Fever Cardiovascular: Denies: Chest Pain, Chest Tightness, Edema Respiratory: Denies: Cough, Shortness of Breath Gastrointestinal: Denies: Abdominal Pain Genitourinary: Denies: Dysuria Gynecological: Denies: Breast symptoms VTE Information - Inpt Only VTE Present on Admission: No VTE Mechan Device Prophylaxis: SCD's VTE Pharm Prophylaxis ordered?: No Subjective: Appears well Objective: Afeb VSS - Physical Exam General: Alert, Oriented x3, Cooperative, No apparent distress Lungs: Clear to auscultation, Normal air movement Cardiovascular: Regular rate, Regular Rhythm Abdomen: Soft, Non Tender, Non-Distended Extremities: No edema Skin: No rashes Neurological: Neuro grossly intact Psych/Mental Status: Normal Affect Vital Signs Temp Pulse Resp BP Pulse Ox 98.5 F 55 L 16 100/59 L 95 08/04/18 13:10 08/04/18 13:10 08/04/18 13:10 08/04/18 13:10 08/04/18 13:10 Oxygen Delivery Method Room Air Weight: 197 lb 5.019 oz Body Mass Index (BMI) 29.9 Intake and Output for Last 24 Hours 08/03/18 08/04/18 08/05/18 23:59 23:59 23:59 Intake Total 600 / 600 Output Total 50 / 50 Balance 550 / 550 Laboratory Tests Past 24 Hrs 08/04/18 11:10 Blood Type O NEGATIVE Antibody Screen POSITIVE H Antibody Identification ANTI-D Assessment/Plan All Active Problems Missed with demise before 20 completed weeks of gestation (Acute) Missed with demise before 20 completed weeks of gestation (Acute) Scheduled for suction d and c. Procedures, risks, and postoperative expectations discussed.
== END 2018-08-04 14:29 | disposition home or self-care (01) ==
LOC: SDC 10:37 → AC 10:39
PROVIDERS: Obstetrics & Gynecology; Family Provider Internal Medicine; PCP Internal Medicine; Referring Provider Obstetrics & Gynecology; Visit Provider Obstetrics & Gynecology
PROC: (CPT 59812; principal; 2018-08-04 12:15)
DX: O03.4 Incomplete spontaneous abortion without complication (principal)
CPT/HCPCS: 59812; 86850; 86870; 86900; 88305; 90384; J7120; J2405; J2790

== ENCOUNTER → 2018-11-07 08:39 | Outpatient (CLI) | payer OTHER, SELFPAY ==
[2018-11-07 10:58] LABS: hCG Titer Quant., Serum 379 mIU/mL (1-3)
== END ==
PROVIDERS: PCP Internal Medicine; Visit Provider Obstetrics & Gynecology
DX: O26.21 Pregnancy care for patient with recurrent pregnancy loss, first trimester (principal); Z3A.00 Weeks of gestation of pregnancy not specified
CPT/HCPCS: 36415; 84702

== ENCOUNTER → 2018-11-09 08:56 | Outpatient (CLI) | payer OTHER, SELFPAY ==
[2018-11-09 10:51] LABS: hCG Titer Quant., Serum 763 mIU/mL (1-3)
== END ==
PROVIDERS: Visit Provider Obstetrics & Gynecology
DX: Z34.81 Encounter for supervision of other normal pregnancy, first trimester (principal); N96 Recurrent pregnancy loss
CPT/HCPCS: 36415; 84702

== ENCOUNTER 2019-02-20 19:52 | Outpatient (CLI) | payer OTHER, SELFPAY ==
[2019-02-20 20:25] VITALS: BMI 29.7
[2019-02-20 20:44] LABS: Color, Urine Straw (Yellow); Glucose, Dipstick Normal (Normal); Ketone-Dipstick Negative (Negative); Leukocyte Esterase-Dipstick Negative /ul (Negative); Nitrite-Dipstick Negative (Negative); Occult Blood-Urine Negative /ul (Negative); Protein-Dipstick Negative (Negative); Specific Gravity, Urine 1.005 (1.002-1.030); Urine Bilirubin Dipstick Negative (Negative); Urine Clarity Clear (Clear); Urine Urobilinogen Normal (Normal)
[2019-02-20] MEDS: Famotidine 20 MG Tablet PO (21:41)
[2019-02-20 22:01] VITALS: RESP 18
--- NOTE | 2019-03-15 19:14 | OB.TRI.NOTE ---
History of Present Illness Date of Service: 02/20/19 Was patient seen by the physician?: No Reason For Visit: R/O Date of Service: 02/20/19 Final JAZMIN: 07/13/19 Final JAZMIN Source: US <20 weeks Gestational age: 19 Weeks and 4 Days History of Present Illness: Reporting that she has been having periodic sharp shooting pains that shoot straight across her abdomen and around to her back, then adds that they started yesterday for several hours, stopped and returned this afternoon approximately 1530 and has been intermittently since then. Denies burning/pain with urination. Denies spotting/bleeding. FM noted. Admits to drinking at least 4 of my Yetti cups of water a day. Allergies bee venom protein (honey bee) Allergy (Verified 02/20/19 20:27) Anaphylaxis Laboratory Studies: Laboratory Tests 02/20/19 Range/Units 20:00 Urine Color Straw (Yellow) Urine Clarity Clear (Clear) Urine pH 7.0 (5.0 - 8.0) Ur Specific [place] 1.005 (1.002-1.030) Urine Protein Negative (Negative) mg/dl Urine Glucose (UA) Normal (Normal) mg/dl Urine Ketones Negative (Negative) mg/dl Urine Occult Blood Negative (Negative) /ul Urine Nitrite Negative (Negative) Urine Bilirubin Negative (Negative) mg/dL Urine Urobilinogen Normal (Normal) mg/dl Ur Leukocyte Esterase Negative (Negative) /ul Physical Exam Vitals: Vital Signs Resp 18 02/20/19 22:01 NST - FHR Rate Baby A NST Reactive:: Appropriate for gestational age Impression/Plan 19+ week intrauterine presents with abdominal discomfort, likely round ligament pain. Urine analysis was negative. Advised to take some Tylenol, increase water and lay on (L) side use warm or cool compresses for comfort. If discomfort persists return to office or L and D for evaluation.
== END 2019-02-20 21:50 | disposition home or self-care (01) ==
LOC: WPOUT 20:22 → WP 20:23
PROVIDERS: Referring Provider Obstetrics & Gynecology; Visit Provider Obstetrics & Gynecology
DX: O26.892 Other specified pregnancy related conditions, second trimester (principal); R10.9 Unspecified abdominal pain; Z3A.19 19 weeks gestation of pregnancy
CPT/HCPCS: 59050; 81002; 99218; G0378

== ENCOUNTER → 2019-06-05 | Outpatient (CLI) | payer OTHER, SELFPAY ==
[2019-06-05 10:45] LABS: ROM Internal Control Test YES-OK TO RESULT pt. (Internal QC)
[2019-06-05 11:05] LABS: ROM Patient Test Negative (Negative)
[2019-06-05 11:13] LABS: Fetal Fibronectin Negative
== END | disposition home or self-care (01) ==
LOC: LABSPEC 10:36
PROVIDERS: Visit Provider Obstetrics & Gynecology
DX: Z34.83 Encounter for supervision of other normal pregnancy, third trimester (principal)
CPT/HCPCS: 82731; 84112

== ENCOUNTER 2019-07-03 18:35 | Inpatient (IN) | payer OTHER, SELFPAY ==
[2019-07-03] VITALS (22 sets, daily range): BP systolic 94–136; BP diastolic 51–83; PULSE 58–83; TEMP 97.9–98.5; O2SAT 93–100; BMI 33.5
[2019-07-03] MEDS: Lactated Ringers 1,000 ML 50 ML IV (18:55)
--- NOTE | 2019-07-03 18:56 | PCM.HP.OB ---
- Problem List (1) 38 weeks gestation of Status: Acute (2) Polyhydramnios affecting in third trimester Status: Acute History Date of Admission: 07/03/19 Final JAZMIN: 07/13/19 Final JAZMIN Source: US <20 weeks Gestational age: 38 Weeks and 4 Days History of this : This is a 34 year-old, G [5], P [2], at 38.4 weeks gestational age. Allergies bee venom protein (honey bee) Allergy (Verified 02/20/19 20:27) Anaphylaxis Home Medications: Home Medications Pnv No.95/Ferrous Fum/Folic AC [ Multivitamin Tablet] 1 each PO DAILY 08/03/18 Amoxicillin [Amoxil] 500 mg PO BID 07/03/19 Smoking Status: Never smoker Alcohol: None Number of Fetus(es): 1 NST - FHR Rate Baby A Baseline: 140 Variability:: Moderate Accelerations:: 15 x 15 Decelerations:: None NST Reactive:: Yes FHR Category:: Category I Uterine Activity:: Q2-3minutes History Past Pregnancies: PRIOR DELIVERY HISTORY DEL DATE GEST LAB WT LB WT OZ TYPE ANES LABOR TX 04 Aug 19 10 0 0 0 Sab General No Dec 18 10 0 0 0 Sab General No 12 Aug 17 40 3 9 7 Vag Epidural No Jan 14 39 19 7 3 Vag Epidural No Labs: Mom's Problem List Problem Status Onset Code 38 weeks gestation of Acute Z3A.38 Polyhydramnios affecting in third trimester Acute O40.3XX0 Mom's Labs & Results 07/03/19 07/03/19 18:50 18:50 WBC 8.2 RBC 3.96 L Hgb 11.2 L Hct 33.7 L MCV 85.1 MCH 28.3 MCHC 33.2 RDW Std Deviation 40.3 RDW Coeff of Diana 13.2 Plt Count 225 MPV 11.5 Immature Gran % (Auto) 0.400 Neut % (Auto) 59.7 Lymph % (Auto) 32.1 [place] % (Auto) 6.6 Eos % (Auto) 1.1 Baso % (Auto) 0.1 Absolute Neuts (auto) 4.9 Absolute Lymphs (auto) 2.62 Nucleated RBC % 0 Blood Type O NEGATIVE Antibody Screen NEGATIVE Course Did the patient receive Yes care? Labs Blood Type: O RH: NEGATIVE RPR/VDRL/Syphilis Nonreactive Rubella status Immune HbSAg Negative Date Done: 12/29/18 Chlamydia Negative Gonorrhea Negative HIV/AIDS Non-Reactive Group B Strep: Positive Current Obstetrical History Gestational Diabetes No Incompetent Cervix No Infertility No IUGR No Macrosomia No Hypertension/Pre-eclampsia No Placenta Previa/Abruption No PTL/PROM No Uterine anomaly No Oligohydramnios No Polyhydramnios Yes Multiple gestation No Past Medical History Asthma No Diabetes No Hypertension No Heart disease No Mitral valve prolapse No Neurologic/Seizure disorder/ No Migraines Kidney disease No Liver disease No Varicosities No Clotting disorders/Hx of DVT No Thyroid Dysfunction No Other medical diseases No Psychiatric disorders No Major trauma No Abnormal PAP smear No Sleep apnea No Mammogram in the last 2 years No Social History Marital Status: Alleged father Marcial Nuñez Hx Smoking No Smoking Status Never smoker Expected Delivery Method: Spontaneous Vaginal Number of Visits: 20 Review of Systems Constitutional: Denies: Chills, Fever, Weight Change HEENT: Denies: Head Aches, Sinus Congestion, Sinus Drainage Cardiovascular: Denies: Chest Pain, Palpitations Respiratory: Denies: Cough, Shortness of breath at rest, Sputum production Gastrointestinal: Denies: Abdominal Pain, Nausea, Vomiting Genitourinary: Denies: Dysuria Musculoskeletal: Denies: Joint Pain, Joint Tenderness Skin: Denies: Rash, Wounds Neurological: Denies: Numbness, Tingling, Focal weakness Psychiatric: Denies: Anxiety, Depression, Homicidal Ideations, Suicidal Ideations Hematologic/ Lymphatic: Denies: Easy Bruising, Easy Bleeding Physical Exam General: Alert, Oriented x3, No apparent distress HEENT: Atraumatic, Normocephalic. 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 Negative for: Vulvar lesions Estimated gestational size: Appropriate for gestational size Presentation: Cephalic Cervix Dilation (cm): 5 Station: -2 Effacement (%): 80 Assessment/Plan All Active Problems Missed with demise before 20 completed weeks of gestation (Acute) Missed with demise before 20 completed weeks of gestation (Acute) 38 weeks gestation of (Acute) Polyhydramnios affecting in third trimester (Acute) A: This is a 34 year-old, G [5], P [2], at 38.4 weeks gestational age. Known polyhydramnios with FORREST of 20.3 and EFW +10lbs. SVE 5/80/-2 with bulging bag of fluid, two hours previously in the office typewriter mechanic assessed and 4/75/-2 NST Category I with FHR baseline 140, +accels, -decels, moderate variability UC 2-3 minutes rating them as moderate Active labor P: Admit for labor Plans epidural for pain management then wishes to have AROM Expect
[2019-07-03 19:35] LABS: Absolute Lymphocyte Count 2.62 X10^3/uL (0.83-4.51); Absolute Neutrophil Count 4.9 X10^3/uL (2.0-7.7); Basophil# 0.01 X10^3/uL; Basophil% 0.1 % (0-1); Eosinophil# 0.09 X10^3/uL; Eosinophils% 1.1 % (0-5); Hematocrit 33.7 % (37-47); Hemoglobin 11.2 g/dL (12.0-15.0); Lymphocyte # 2.62 X10^3/ul (4.0); Lymphocyte % 32.1 % (19-41); Mean Corp Hgb Conc 33.2 g/dL (32-36); Mean Corpuscular Hgb 28.3 pg (27.0-32.0); Mean Corpuscular Volume 85.1 fL (81-99); Mean Platelet Vol. 11.5 fl (6.2-12.0); Monocyte# 0.54 X10^3/uL; Monocyte% 6.6 % (0-10); NRBC Flagged by Analyzer 0 % (0-5); Neutrophil # 4.88 X10^3/uL (2.7-7.7); Neutrophil % 59.7 % (47-70); Platelet Count 225 K/mm3 (150-450); RBC Distribution Width CV 13.2 % (11.6-14.6); RBC Distribution Width SD 40.3 fl (35.1-43.9); Red Blood Count 3.96 M/mm3 (4.2-5.4); White Blood Count 8.2 K/mm3 (4.4-11.0)
[2019-07-03] MEDS: Lactated Ringers 500 ML 999 ML IV ×2 (19:45→20:43)
[2019-07-03] MEDS: fentaNYL-bupivacaine (epidural) 100 ML BAG EPIDURAL (20:38)
--- NOTE | 2019-07-03 22:02 | PCM.PN.BLA ---
Progress Note S: Feeling well after epidural. Not having any pain. O: VSS SVE 6/80/-2 FHR baseline 135, +accels, -decels, moderate variability UC 2-3 minutes A: Active labor NST Category I Epidural in place and effective P: AROM at 2053, clear amniotic fluid Continue with labor Continuous FM Expect
[2019-07-03] MEDS: Lactated Ringers 1,000 ML 200 ML IV (22:20)
[2019-07-04] VITALS (34 sets, daily range): BP systolic 109–133; BP diastolic 57–95; PULSE 65–98; RESP 11–18; TEMP 36.2–36.7; O2SAT 95–100
[2019-07-04] MEDS: fentaNYL-bupivacaine (epidural) 100 ML BAG EPIDURAL ×2 (01:07→05:47)
[2019-07-04] MEDS: Lactated Ringers 500 ML 999 ML IV (02:22)
[2019-07-04] MEDS: Lactated Ringers 1,000 ML 200 ML IV ×2 (04:12→10:23)
--- NOTE | 2019-07-04 08:00 | PCM.PN.BLA ---
Progress Note S: Feeling okay with little pressure during contractions O: VSS SVE 10/100/+1 FHR baseline 140, + accels, -decels, moderate variability A: Category I FHR Complete and ready to push P: Educated patient on risks of arrest of descent, shoulder dystocia and hemorrhage. Aware of all protocols Expect Dr. Neal updated on patients progress
[2019-07-04] MEDS: Oxytocin 30 units/NS 500 ml 30 UNITS/500 ML IV.SOLN IV (09:05)
[2019-07-04] MEDS: Sodium Citrate/Citric Acid 30 ML UDC PO (12:23)
--- NOTE | 2019-07-04 12:44 | PCM.PN.BLA ---
Progress Note Patient seen. Reviewed labor course and second stage w/ arrest of descent. Advised section. PMH reviewed and discussed. Discussed related risks including but not limited to bleeding, VTE, infection, injury to abdominal viscus, need for further surgery, life threatening complications. Patient and family given opportunity to ask questions and questions answered to their satisfaction. Proceed with section.
[2019-07-04] MEDS: Oxytocin 30 units/NS 500 ml 30 UNITS/500 ML IV.SOLN 167 UNITS IV (14:35)
[2019-07-04] MEDS: Lactated Ringers 1,000 ML 100 ML IV (17:55)
[2019-07-04] MEDS: Ketorolac 30 MG/ML Syringe IV (19:47)
[2019-07-04] MEDS: Cefazolin 1 GM/50 ML BAG IV (20:47)
[2019-07-04] MEDS: 0.9% Saline Lock 10 ML Syringe IV (21:21)
[2019-07-04] MEDS: Ondansetron 4 MG/2 ML Vial IV (21:21)
[2019-07-05] MEDS: Ketorolac 30 MG/ML Syringe IV (01:39)
[2019-07-05] MEDS: 0.9% Saline Lock 10 ML Syringe IV ×2 (01:40→08:25)
[2019-07-05 01:47] VITALS: PULSE 72; RESP 14; O2SAT 95
[2019-07-05] MEDS: Cefazolin 1 GM/50 ML BAG IV (04:12)
[2019-07-05 04:15] VITALS: BP 105/59; PULSE 62; RESP 18; TEMP 36.2
[2019-07-05 06:37] LABS: Hemoglobin 7.9 g/dL (12.0-15.0); Mean Corp Hgb Conc 32.9 g/dL (32-36); Mean Corpuscular Hgb 28.5 pg (27.0-32.0); Mean Corpuscular Volume 86.6 fL (81-99); Mean Platelet Vol. 10.8 fl (6.2-12.0); Platelet Count 155 K/mm3 (150-450); RBC Distribution Width CV 13.5 % (11.6-14.6); RBC Distribution Width SD 41.8 fl (35.1-43.9); Red Blood Count 2.77 M/mm3 (4.2-5.4); White Blood Count 8.2 K/mm3 (4.4-11.0)
--- NOTE | 2019-07-05 06:57 | PCM.PN.OB ---
Patient Problems: Active and Suspected Problems 38 weeks gestation of (Acute) Polyhydramnios affecting in third trimester (Acute) Subjective: Voided without difficulty, out of bed and ambulating. Denies lightheadedness, shortness of breath or chest pain. Feels well overall. Had nausea yesterday, but now resolved and tolerates PO. Denies heavy lochia. Infant nursing well. Objective: AVSS - Physical Exam Vitals/I&O's: Vital Signs Temp Pulse Resp BP Pulse Ox 97.2 F L 62 18 105/59 L 95 07/05/19 04:15 07/05/19 04:15 07/05/19 04:15 07/05/19 04:15 07/05/19 01:47 Oxygen Delivery Method Room Air Weight: 100.244 kg Body Mass Index (BMI) 33.5 Intake and Output for Last 24 Hours 07/03/19 07/04/19 07/05/19 23:59 23:59 23:59 Intake Total 2415 / 2415 5346.49 / 5346.49 843.33 / 843.33 Output Total 200 / 200 3600 / 3600 Balance 2215 / 2215 1746.49 / 1746.49 843.33 / 843.33 General: Alert, Oriented x3, Cooperative, No apparent distress HEENT: Atraumatic, Normocephalic Lungs: Clear to auscultation, Normal air movement Cardiovascular: Regular rate, Regular Rhythm, Normal S1, Normal S2 Abdomen: Bowel Sounds Present, Soft, Non Tender, Non-Distended, - - Fundus firm and nontender, incisional dressing c/d/i Extremities: No Calf Tenderness, - - trace LE edema Neurological: Neuro grossly intact Psych/Mental Status: Normal Affect, Appropriate, Alert and oriented to time, place, person, mood and affect Laboratory Results 07/03/19 18:50: Crossmatch See Detail 07/04/19 15:15: Screen NEGATIVE, Baby's Blood Type O POSITIVE, Baby's CHEL NEGATIVE 07/05/19 06:13: WBC 8.2, RBC 2.77 L, Hgb 7.9 L, Hct 24.0 L, MCV 86.6, MCH 28.5, MCHC 32.9, RDW Std Deviation 41.8, RDW Coeff of Diana 13.5, Plt Count 155, MPV 10.8 Current Medications Acetaminophen (Tylenol) 1,000 mg PO Q8H PRN PRN Reason: Pain Score 1-3/10 Amoxicillin (Amoxil) 500 mg PO BID KASH Bisacodyl (Dulcolax) 10 mg RECTAL UD PRN PRN Reason: If no BM Diphenhydramine HCl (Benadryl) 25 mg PO Q6H PRN PRN PRN Reason: ITCHING Stop: 07/05/19 16:11 Hydrocortisone (Hytone) 1 applic TOPICAL TID PRN PRN; Protocol PRN Reason: Discomfort Lactated Ringer's () 1,000 mls @ 100 mls/hr IV .Q10H KASH Last Admin: 07/05/19 01:52 Dose: Not Given Documented by: Naloxone HCl 4 mg/ Dextrose 504 mls @ 0 mls/hr IV .Q0M PRN; Protocol PRN Reason: Respiratory depression Ibuprofen (Motrin) 600 mg PO Q6H PRN PRN PRN Reason: Pain Score 1-3/10 Ketorolac Tromethamine (Toradol (Bkc)) 30 mg IV Q6H [facility] Stop: 07/06/19 14:01 Methylergonovine Maleate (Methergine) 0.2 mg IM X1 PRN PRN Reason: Uterine Atony Naloxone HCl (Narcan) 0.02 mg IV Q1M PRN PRN Reason: RR <10 and pt unresponsive Ondansetron HCl (Zofran) 4 mg IV Q4H PRN PRN PRN Reason: Nausea Last Admin: 07/04/19 21:21 Dose: 4 mg Documented by: Oxycodone HCl (Oxyir) 5 - 10 mg PO Q4H PRN PRN PRN Reason: Pain Score 4-10/10 Multivit/Folic Acid/Iron (Prenatabs Fa) 1 tablet PO DAILY@1200 KASH Senna/Docusate Sodium (Senokot-S, Yamileth-Colace) 0 tablet PO DAILY PRN PRN Reason: Constipation Simethicone (Mylicon) 80 mg PO PCHS PRN PRN Reason: Indigestion/stomach pain Sodium Chloride () 5 - 15 ml IV UD PRN PRN Reason: SALINE FLUSH Last Admin: 07/05/19 01:40 Dose: 10 ml Documented by: Medical Necessity - Tobacco Use Smoking Status: Never smoker Assessment/Plan All Active Problems 38 weeks gestation of (Acute) Polyhydramnios affecting in third trimester (Acute) 34yo POD#1 s/p PLTCS complicated by hemorrhage doing well. -H/H appropriate, repeat cbc in am -Rh negative, s/p Rhogam -Routine postop care -
[2019-07-05 07:00] VITALS: BP 110/64; PULSE 64; RESP 18; TEMP 36.2; O2SAT 99
--- NOTE | 2019-07-05 08:46 | NURSING ---
Alina Montgomery CNM in to see pt since her saline lock in rt hand infiltrated when RN went to flush. Options given to pt to start po Motrin or restart IV and give remainder of doses of toradol. Pt chose to go with motrin option at this time time unless not effective for treating pt's pain.
[2019-07-05] MEDS: Senna/Docusate Sodium 1 Tablet PO (08:50)
[2019-07-05] MEDS: Ibuprofen 600 MG Tablet PO ×2 (08:50→15:21)
--- NOTE | 2019-07-05 09:55 | PCM.OPRPT ---
Problem List (1) Arrest of dilation, delivered, current hospitalization Status: Acute (2) 38 weeks gestation of Status: Acute Delivery Classification: GISELE seat cover maker: Patience Wiley Type of Anesthesia:: Epidural Date of Procedure: 07/04/19 Indications for : - - Arrest of descent Description of Procedure: Occasions: 34-year-old 5 para 2-0-2-2 admitted at 38 weeks gestational age for scheduled induction of labor. She had a history of macrosomia as well as polyhydramnios. She progressed to fully dilated and pushed for proximately 4 hours with no descent. She was advised to proceed with section. Procedural risks, benefits, indications and alternatives were reviewed. The patient desired to proceed. The patient was taken to the operating room and spinal analgesia was administered. She is placed in a dorsal supine position with left lateral tilt. The perineum and abdomen were prepped and draped in sterile fashion. And the spinal was found to be adequate. A Pfannenstiel incision was made using a scalpel and brought down to incise the subcutaneous tissue and rectus fascia at the midline. Subcutaneous tissue was bluntly dissected off the fascia laterally. The fascial incision was dissected laterally and cephalad using curved Guo scissors. The superior leaflet of the rectus fascia was grasped using Tien clamps and bluntly dissected and sharply dissected from the underlying rectus muscle. In a similar fashion the inferior rectus fascia was dissected from the underlying muscle. The rectus muscles were bluntly at the midline. The peritoneum was identified and entered [sharply]. The bladder blade was placed into the abdomen and the vesicouterine peritoneal fold identified. The fold was incised and a bladder flap created. Bladder blade was then repositioned to the abdomen. A low transverse hysterotomy was made using the [Metzenbaum scissors] to level of the membranes. The hysterotomy was extended bluntly cephalad and caudad. The membranes were then ruptured revealing clear fluid. The head was elevated and brought to the level of the hysterotomy and the infant delivered revealing vigorous [male] . The cord was doubly clamped and cut after 30 seconds. The was passed to awaiting [nursery personnel]. The placenta was [expressed] from the uterus and appeared intact on inspection. The uterus was cleared of debris. The hysterotomy was then repaired using 0 Vicryl running lock suture. A second imbricating layer was also placed for additional hemostasis. The bladder blade was removed. The anterior cul-de-sac was cleared of debris. The peritoneum and rectus muscles were reapproximated using 2-0 Vicryl running suture. The rectus fascia was closed using 0 Vicryl running suture. The subcutaneous tissue was sponge irrigated and small capillary bleeding controlled using the Bovie device. The subcutaneous tissue was reapproximated using 2-0 Vicryl. The skin was closed using 4-0 Monocryl subcuticularly. This was followed by Cavilon and a Mepilex occlusive dressing was placed over the incision. The fundus was firm. The patient was then transferred to the recovery room without complication. Sponge, instrument, and needle counts were correct ?2. Amniotic Fluid Description: Clear Placenta Disposition: [facility] Drain: Martinez to straight drain Cord Entanglement: Around neck x 1, loose Nuchal Cord Compression: Without compression Cord Vessel Description: 3 Vessels Esitmated Blood Loss (ml): 1500 ml Gender: Male (1 minute): 8 (5 minute): 9 Delayed cord clamping: Yes Antibiotic Given: Ancef 2 grams IV x1 Pt instructed on risks of surgery: Bleeding, Anesthesia Risks, Infection, Injury to surrounding structure(s) including bowel and bladder Complications: None - Admit VTE Documentation VTE Present on Admission: No VTE Mechan Device Prophylaxis: SCD's VTE Pharm Prophylaxis ordered?: No
[2019-07-05 11:00] VITALS: BP 128/68; PULSE 76; RESP 18; TEMP 36.4; O2SAT 98
[2019-07-05] MEDS: Prenatal Vits Tablet 1 TABLET PO (13:23)
[2019-07-05] MEDS: Acetaminophen 500 MG Tablet 1000 MG PO ×2 (13:45→22:04)
[2019-07-05 16:49] VITALS: BP 117/66; PULSE 77; RESP 16; TEMP 36.2; O2SAT 95
[2019-07-05 19:34] VITALS: BP 125/66; PULSE 79; RESP 16; TEMP 36.4
[2019-07-05] MEDS: AMOXICILLIN 500 MG CAPSULE 1000 MG PO (20:02)
[2019-07-06] MEDS: Ibuprofen 600 MG Tablet PO ×2 (00:57→06:52)
[2019-07-06 02:36] VITALS: BP 117/56; PULSE 86; RESP 16; TEMP 36.4
[2019-07-06 06:08] LABS: Hematocrit 24.2 % (37-47); Hemoglobin 7.6 g/dL (12.0-15.0); Mean Corp Hgb Conc 31.4 g/dL (32-36); Mean Corpuscular Hgb 27.3 pg (27.0-32.0); Mean Corpuscular Volume 87.1 fL (81-99); Mean Platelet Vol. 11.2 fl (6.2-12.0); Platelet Count 181 K/mm3 (150-450); RBC Distribution Width CV 13.9 % (11.6-14.6); RBC Distribution Width SD 42.9 fl (35.1-43.9); Red Blood Count 2.78 M/mm3 (4.2-5.4)
--- NOTE | 2019-07-06 07:42 | PN.OBGYN_ITS ---
Patient Problems: Active and Suspected Problems Arrest of dilation, delivered, current hospitalization (Acute) 38 weeks gestation of (Acute) Polyhydramnios affecting in third trimester (Acute) Subjective: No issues overnight. Feels well this morning and requests discharge. Denies heavy lochia. + flatus. Pain controlled. Has not required Oxycodone. Objective: avss - Physical Exam Vitals/I&O's: Vital Signs Temp Pulse Resp BP Pulse Ox 97.6 F L 86 16 117/56 L 95 07/06/19 02:36 07/06/19 02:36 07/06/19 02:36 07/06/19 02:36 07/05/19 16:49 Oxygen Delivery Method Room Air Weight: 100.244 kg Body Mass Index (BMI) 33.5 Intake and Output for Last 24 Hours 07/04/19 07/05/19 07/06/19 23:59 23:59 23:59 Intake Total 5346.49 / 5346.49 843.33 / 843.33 Output Total 3600 / 3600 Balance 1746.49 / 1746.49 842.33 / 842.33 General: Alert, Oriented x3, Cooperative, No apparent distress HEENT: Atraumatic, Normocephalic Lungs: Normal air movement Cardiovascular: Regular rate, Regular Rhythm, Normal S1, Normal S2 Abdomen: Bowel Sounds Present, Soft, Non Tender, Non-Distended, - - fundus firm and nontender, incisional dressing c/d/i Extremities: No Calf Tenderness, - - 1+ b/l LE pitting edema Neurological: Neuro grossly intact Psych/Mental Status: Normal Affect, Appropriate, Alert and oriented to time, place, person, mood and affect Laboratory Results 07/06/19 05:50: WBC 8.0, RBC 2.78 L, Hgb 7.6 L, Hct 24.2 L, MCV 87.1, MCH 27.3, MCHC 31.4 L, RDW Std Deviation 42.9, RDW Coeff of Diana 13.9, Plt Count 181, MPV 11.2 Current Medications Acetaminophen (Tylenol) 1,000 mg PO Q8H PRN PRN Reason: Pain Score 1-3/10 Last Admin: 07/05/19 22:04 Dose: 1,000 mg Documented by: Amoxicillin (Amoxil) 1,000 mg PO BID [facility] Last Admin: 07/05/19 20:02 Dose: 1,000 mg Documented by: Bisacodyl (Dulcolax) 10 mg RECTAL UD PRN PRN Reason: If no BM Hydrocortisone (Hytone) 1 applic TOPICAL TID PRN PRN; Protocol PRN Reason: Discomfort Lactated Ringer's () 1,000 mls @ 100 mls/hr IV .Q10H [facility] Last Admin: 07/05/19 20:05 Dose: Not Given Documented by: Naloxone HCl 4 mg/ Dextrose 504 mls @ 0 mls/hr IV .Q0M PRN; Protocol PRN Reason: Respiratory depression Ibuprofen (Motrin) 600 mg PO Q6H PRN PRN PRN Reason: Pain Score 1-3/10 Last Admin: 07/06/19 06:52 Dose: 600 mg Documented by: Ketorolac Tromethamine (Toradol (Bkc)) 30 mg IV Q6H [facility] Stop: 07/06/19 14:01 Last Admin: 07/05/19 20:05 Dose: Not Given Documented by: Methylergonovine Maleate (Methergine) 0.2 mg IM X1 PRN PRN Reason: Uterine Atony Naloxone HCl (Narcan) 0.02 mg IV Q1M PRN PRN Reason: RR <10 and pt unresponsive Ondansetron HCl (Zofran) 4 mg IV Q4H PRN PRN PRN Reason: Nausea Last Admin: 07/04/19 21:21 Dose: 4 mg Documented by: Oxycodone HCl (Oxyir) 5 - 10 mg PO Q4H PRN PRN PRN Reason: Pain Score 4-10/10 Multivit/Folic Acid/Iron (Prenatabs Fa) 1 tablet PO DAILY@1200 KASH Last Admin: 07/05/19 13:23 Dose: 1 tablet Documented by: Senna/Docusate Sodium (Senokot-S, Yamileth-Colace) 0 tablet PO DAILY PRN PRN Reason: Constipation Last Admin: 07/05/19 08:50 Dose: 1 tablet Documented by: Simethicone (Mylicon) 80 mg PO [facility]S PRN PRN Reason: Indigestion/stomach pain Sodium Chloride () 5 - 15 ml IV UD PRN PRN Reason: SALINE FLUSH Last Admin: 07/05/19 08:25 Dose: 10 ml Documented by: Medical Necessity - Tobacco Use Smoking Status: Never smoker Assessment/Plan All Active Problems Arrest of dilation, delivered, current hospitalization (Acute) 38 weeks gestation of (Acute) Polyhydramnios affecting in third trimester (Acute) 34yo POD#2 s/p PLTCS complicated by hemorrhage doing well. -H/H stable -Rh negative, s/p Rhogam -Routine postop care - -d/c home today
--- NOTE | 2019-07-06 08:27 | DCINST_ITS ---
Discharge Diet: No Restrictions Discharge Activity: Return to Normal Activity, May Shower, May Take a Tub Bath May resume sexual activity in: 4-6 weeks Lifting Restrictions: 10-20 lb Suture Line Care: Avoid Pulling/Pushing Remove Dressing in (days):: 3 Cleanse incision/area with: Soap & Water Additional Instructions: If you experience any of the following, contact your healthcare provider. * Bleeding that soaks a pad every hour for 2 hours * Fever 100.4 or higher * Unrelieved incision or abdominal pain * Swelling, redness, discharge or bleeding from your incision or episiotomy site * Your incision begins to separate * Problems urinating (including inability to urinate or burning while urinating). * Visual changes * Severe headache * Flu-like symptoms * Pain or redness in one of both of your breasts * Pain, warmth, tenderness or swelling in your legs, especially the calf area * Frequent nausea and vomiting * Symptoms of depression or anxiety If you experience any of the following, call 911 or go to the nearest Emergency Room. * Chest pain * Problems breathing * Seizure activity * Partial or complete paralysis of a body part, slurred speech, weakness or drooping of the face, or a sudden inability to walk or hold your balance Allergies/Adverse Reactions: Allergies bee venom protein (honey bee) Allergy (Verified 07/03/19 19:48) Anaphylaxis Medications to take at Discharge Pnv No.95/Ferrous Fum/Folic AC [ Multivitamin Tablet] 1 each PO DAILY 08/03/18 Ibuprofen [Motrin] 600 mg PO Q8H PRN PRN #30 tab 07/06/19 Senna/Docusate Sodium [Senokot-S] 1 - 2 tab PO DAILY PRN tablet 07/06/19 SimETHICONE [Mylicon] 80 mg PO PCHS PRN tablet 07/06/19 The following prescriptions were given: Ibuprofen [Motrin] 600 mg PO Q8H PRN PRN #30 tab PRN Reason: pain Transmission Status: Pending to [facility] Follow-Up: Call to make an appointment with your doctor for an incision check in 1-2 weeks. You will also need a 6 week post- follow up appointment. Test results from this visit will be discussed in further detail at your follow- up appointment, if applicable. Please Follow Up With: Maria Fernanda Miller MD - postop visit When: 1-2 weeks Please Follow Up With: Alina Montgomery CNM - visit When: 6 weeks Primary Care Physician: Care Physician,No Primary [Primary Care Provider] -
[2019-07-06 08:31] VITALS: BP 113/60; PULSE 87; RESP 18; TEMP 36.4
[2019-07-06] MEDS: Acetaminophen 500 MG Tablet 1000 MG PO (09:01)
[2019-07-06] MEDS: Senna/Docusate Sodium 1 Tablet PO (09:01)
--- NOTE | 2019-07-06 09:07 | DCINST_ITS ---
Discharge Diet: No Restrictions Discharge Activity: Return to Normal Activity, May Shower, May Take a Tub Bath May resume sexual activity in: 4-6 weeks Suture Line Care: Avoid Pulling/Pushing Remove Dressing in (days):: 3 Cleanse incision/area with: Soap & Water Additional Instructions: If you experience any of the following, contact your healthcare provider. * Bleeding that soaks a pad every hour for 2 hours * Fever 100.4 or higher * Unrelieved incision or abdominal pain * Swelling, redness, discharge or bleeding from your incision or episiotomy site * Your incision begins to separate * Problems urinating (including inability to urinate or burning while urinating). * Visual changes * Severe headache * Flu-like symptoms * Pain or redness in one of both of your breasts * Pain, warmth, tenderness or swelling in your legs, especially the calf area * Frequent nausea and vomiting * Symptoms of depression or anxiety If you experience any of the following, call 911 or go to the nearest Emergency Room. * Chest pain * Problems breathing * Seizure activity * Partial or complete paralysis of a body part, slurred speech, weakness or drooping of the face, or a sudden inability to walk or hold your balance Allergies/Adverse Reactions: Allergies bee venom protein (honey bee) Allergy (Verified 07/03/19 19:48) Anaphylaxis Medications to take at Discharge Pnv No.95/Ferrous Fum/Folic AC [ Multivitamin Tablet] 1 each PO DAILY 08/03/18 Ferrous Sulfate 325 mg PO BID #60 tab 07/06/19 Ibuprofen [Motrin] 600 mg PO Q8H PRN PRN #30 tab 07/06/19 Senna/Docusate Sodium [Senokot-S] 1 - 2 tab PO DAILY PRN tab 07/06/19 SimETHICONE [Mylicon] 80 mg PO PCHS PRN tab 07/06/19 The following prescriptions were given: Ferrous Sulfate 325 mg PO BID #60 tab Transmission Status: Pending to [facility] Ibuprofen [Motrin] 600 mg PO Q8H PRN PRN #30 tab PRN Reason: pain Transmission Status: Received by [facility] Follow-Up: Call to make an appointment with your doctor for an incision check in 1-2 weeks. You will also need a 6 week post- follow up appointment. Test results from this visit will be discussed in further detail at your follow- up appointment, if applicable. Please Follow Up With: Maria Fernanda Miller MD When: 1-2 weeks Please Follow Up With: Alina Montgomery CNM When: 6 weeks Primary Care Physician: Care Physician,No Primary [Primary Care Provider] -
[2019-07-06 10:40] VITALS: BP 117/65; PULSE 69; RESP 16; TEMP 36.3; O2SAT 99
[2019-07-06] MEDS: AMOXICILLIN 500 MG CAPSULE 1000 MG PO (10:48)
== END 2019-07-06 11:05 | disposition home or self-care (01) | DRG 787 ==
LOC: WPOUT 18:41 → WP 18:41
PROVIDERS: Obstetrics & Gynecology; Admitting Provider Obstetrics & Gynecology; Referring Provider Obstetrics & Gynecology; Visit Provider Obstetrics & Gynecology
DX: O62.1 Secondary uterine inertia (principal); O72.1 Other immediate postpartum hemorrhage; O40.3XX0 Polyhydramnios, third trimester, not applicable or unspecified; O69.81X0 Labor and delivery complicated by cord around neck, without compression, not applicable or unspecified; O26.23 Pregnancy care for patient with recurrent pregnancy loss, third trimester; O99.824 Streptococcus B carrier state complicating childbirth; Z3A.38 38 weeks gestation of pregnancy; Z37.0 Single live birth; Z87.59 Personal history of other complications of pregnancy, childbirth and the puerperium
CPT/HCPCS: 59025; 59050; 85025; 85027; 85461; 86850; 86900; 86901; 86920; 90384; 99218; 99251; J7120; A4216; G0378; G0463; J2405; J2790; J3490

== ENCOUNTER 2019-07-14 22:34 | Inpatient (IN) | payer OTHER, SELFPAY ==
[2019-07-03 18:28] VITALS: BMI 33.5
[2019-07-14 22:35] VITALS: BP 160/84; PULSE 94; RESP 18; TEMP 38.8; O2SAT 100; BMI 33.1
[2019-07-14 22:40] VITALS: BP 160/84; PULSE 94; RESP 18; TEMP 38.8; O2SAT 100
[2019-07-14] MEDS: Acetaminophen 500 MG Tablet 1000 MG PO (23:04)
--- NOTE | 2019-07-14 23:06 | ED.VIS.GEN ---
History of Present Illness Chief Complaint: Fever Informant: Patient Onset: Today Narrative: Patient presents with fever today. Also reports headache. She is 10 days by . had one emesis today. Persistent leg swelling since being discharged. was having a cough for the past 2 weeks status post amoxicillin. Denies any complications since surgery. States she was approximately 38 weeks and 4 days, she was dilated there for monitor she had AROM to help induce labor, due to size of baby after 3 hours, decision was made for . She states no complications with incision of any drainage or pain. Feels mild tingling at incision with her cough. Denies any urinary symptoms. Denies any dizziness. Reports called nurse refrigeration technician who discussed with Dr. Lynne Cazares when was told to go to the ED. Triage blood pressure 160/84, states did not have any elevated blood pressure during . Prior similar symptoms: No Past Medical History - Allergies and Home Meds Allergies/Adverse Reactions: Allergies bee venom protein (honey bee) Allergy (Verified 07/14/19 22:40) Anaphylaxis Past Medical History: - - Anemia in Surgical History: noncontributory Smoking Status: Never smoker Review of Systems General: Reports: Fever. Denies: Chills, Sweats Eyes: Denies: Visual changes - bilaterally, Diplopia ENT: Denies: Rhinorrhea, Sore throat Cardiovascular: Denies: Chest pain, Palpitations Respiratory: Reports: Cough. Denies: Dyspnea, Dyspnea on exertion Gastrointestinal: Reports: Vomiting. Denies: Abdominal pain, Nausea, Diarrhea, Melena, Hematochezia Genitourinary: Denies: Dysuria, Hematuria, Frequency Musculoskeletal: Denies: Back pain, Extremity Pain Skin: Denies: Rash, Wounds Neurological: Denies: Headache, Weakness, Numbness Physical Exam Vital Signs/Narrative: Vital Signs Temp Pulse Resp BP Pulse Ox 07/14/19 22:40 101.8 F H 94 18 160/84 H 100 07/14/19 22:35 101.8 F H 94 18 160/84 H 100 Inital Vital Signs reviewed: Yes General: Well nourished, Well developed, No Acute Distress Head: Normocephalic, Atraumatic Eyes: Perrl, EOMI ENT: Moist mucous membranes, No rhinorrhea Neck: Supple, Nontender, - - No meningismus Cardiovascular: Regular rate, Regular rhythm, No murmurs Respiratory: No distress, CTA bilaterally, Chest nontender Abdomen: Soft, Nontender, Nondistended, Normal bowel sounds, - - Pelvic incision clean, dry, intact Back: Nontender, Normal Inspection Extremities: Nontender, No edema Skin: Normal color, No rash Neurological: Alert, Oriented x3, Cranial nerves II-XII grossly intact, Normal Strength, Normal Sensation, - - 3+ patellar reflex bilaterally Psychological: Normal affect, Normal Mood Diagnostic/Tx/Re-eval Clinical Impression(s) from Imaging Studies Chest X-Ray 07/14/19 23:50 IMPRESSION: Negative x-ray examination of the chest. Electronically Signed: Clyde Caballero, at 0:05 EDT Tel , Service support , Abnormal Lab Results 07/14/19 07/14/19 07/14/19 23:24 23:24 23:41 WBC 10.1 RBC 2.99 L Hgb 8.5 L Hct 26.5 L MCV 88.6 MCH 28.4 MCHC 32.1 RDW Std Deviation 46.5 H RDW Coeff of Diana 15.4 H Plt Count 322 MPV 9.9 PT INR APTT Creatinine Estim Creat Clear Calc Est GFR (MDRD) Af Amer Est GFR (MDRD) Non-Af Uric Acid AST ALT Urine Color Straw Urine Clarity Clear Urine pH 6.0 Ur Specific [place] 1.015 Urine Protein 15 H Urine Glucose (UA) Normal Urine Ketones Negative Urine Occult Blood Negative Urine Nitrite Negative Urine Bilirubin Negative Urine Urobilinogen Normal Ur Leukocyte Esterase Negative Urine RBC 0 SEEN Urine WBC 0-5 SEEN Ur Squamous Epith Cells 0-5 SEEN Urine Bacteria 0 SEEN Urine Mucus 0 SEEN U Random Total Protein 30.2 H Urine Creatinine 58.60 Protein/Creatinin Ratio 515 H 07/14/19 07/14/19 23:41 23:41 WBC RBC Hgb Hct MCV MCH MCHC RDW Std Deviation RDW Coeff of Diana Plt Count MPV PT 13.3 INR 1.0 APTT 28.2 Creatinine 0.73 Estim Creat Clear Calc 111.61 Est GFR (MDRD) Af Amer 119 Est GFR (MDRD) Non-Af 98 Uric Acid 4.2 AST 13 L ALT 25 Urine Color Urine Clarity Urine pH Ur Specific [place] Urine Protein Urine Glucose (UA) Urine Ketones Urine Occult Blood Urine Nitrite Urine Bilirubin Urine Urobilinogen Ur Leukocyte Esterase Urine RBC Urine WBC Ur Squamous Epith Cells Urine Bacteria Urine Mucus U Random Total Protein Urine Creatinine Protein/Creatinin Ratio - Medical Decision Making Patient febrile in the ED, nontoxic. Patient with elevated blood pressure rechecked manually by myself right arm was 156/76. With her headache vomiting today, hyperreflexia concerns for preeclampsia symptoms. She did not have problems during . Preeclampsia labs were sent. With her fever, influenza, chest x-ray and urine sent for evaluation. Treated with Tylenol for her fever. She is given labetalol 10 mg IV. I will discuss with her PARK INTERPRETIVE SPECIALIST for further management. 2124: Spoke with Dr. Lynne Cazares discussed findings. She did agree with magnesium 6 g. She evaluated the ED prior to medications given. She requested to hold on labetalol, however eventually magnesium was given. Labs noted protein urea, protein creatinine ratio was greater than 500. She had anemia in that stable. Liver enzymes were normal. Uric acid normal. Chest x-ray returned negative flu returned negative UA negative for infection, there is no infection of her surgical wound. She has been having cough symptoms at least for the last 2 weeks status post antibiotics, will send for respiratory panel for further evaluation. Patient will be admitted to PCU under the service of Dr. Lynne Cazares. ED Disposition - Plan for ED Patient: Disposition: Acute Care Hospital [facility] Diagnosis: Preeclampsia, Fever, Anemia
[2019-07-14 23:30] LABS: Bacteria 0 SEEN /hpf (None Seen); Mucous, Urine 0 SEEN /hpf (<or=2+); Red Blood Cells-Urine 0 SEEN /hpf (0-5)
[2019-07-14 23:34] LABS: Color, Urine Straw (Yellow); Glucose, Dipstick Normal (Normal); Ketone-Dipstick Negative (Negative); Leukocyte Esterase-Dipstick Negative /ul (Negative); Nitrite-Dipstick Negative (Negative); Occult Blood-Urine Negative /ul (Negative); Protein-Dipstick 15 mg/dl (Negative); Specific Gravity, Urine 1.015 (1.002-1.030); Urine Bilirubin Dipstick Negative (Negative); Urine Clarity Clear (Clear); Urine Urobilinogen Normal (Normal)
[2019-07-14 23:40] VITALS: BP 145/75; PULSE 85; RESP 27; TEMP 38.7; O2SAT 94
[2019-07-14 23:44] LABS: Squamous Epithelial Cells - UA 0-5 SEEN /hpf (5-10); White Blood Cells 0-5 SEEN /hpf (0-5)
[2019-07-14 23:48] LABS: Protein, Urine (Random) 30.2 mg/dL (<11.9); Protein:Creat Ratio 515 mg/g CRE (0-200)
[2019-07-14 23:48] LABS: Hematocrit 26.5 % (37-47); Hemoglobin 8.5 g/dL (12.0-15.0); Mean Corp Hgb Conc 32.1 g/dL (32-36); Mean Corpuscular Hgb 28.4 pg (27.0-32.0); Mean Corpuscular Volume 88.6 fL (81-99); Mean Platelet Vol. 9.9 fl (6.2-12.0); Platelet Count 322 K/mm3 (150-450); RBC Distribution Width CV 15.4 % (11.6-14.6); RBC Distribution Width SD 46.5 fl (35.1-43.9); Red Blood Count 2.99 M/mm3 (4.2-5.4); White Blood Count 10.1 K/mm3 (4.4-11.0)
--- NOTE | 2019-07-14 23:50 | RAD_ITS ---
STUDY: X-RAY CHEST REASON FOR EXAM: Female, 34 years old. COUGH, FEVER, 1 WEEK POST , HEADACHE TECHNIQUE: PA and lateral COMPARISON: None. FINDINGS: The lungs are clear and expanded. There is no demonstrated pleural abnormality. No focal lung consolidation changes. Normal size heart. Normal mediastinum and eliane. Normal visualized pulmonary arteries. Normal visualized aortic arch and descending thoracic aorta. Normal visualized thoracic spine. Normal visualized ribs, clavicles, and shoulders. There is no demonstrated abnormality of the visualized soft tissue structures of the upper abdomen. RAD/Chest PA and Lateral IMPRESSION: Negative x-ray examination of the chest. Electronically Signed: Clyde Caballero, at 0:05 EDT Tel , Service support ,
[2019-07-14 23:57] LABS: Prothrombin Time (Protime)PT. 13.3 SECONDS (11.7-14.9)
--- NOTE | 2019-07-14 23:57 | PCM.HP.STD ---
Problem List (1) Hypertension, condition or complication Status: Acute (2) fever Status: Acute History of Present Illness Date of Admission: 07/14/19 Chief Complaint: Fever, headache The patient is a 34 year old F 5 para 3023 POD#10 s/p PLTCS for arrest of descent presents with two days of fever. She had low grade fever at home yesterday and today temperature to 102. The OBGYN office nurse mental retardation aide advised her to go to ER for evaluation. Reports headache today with emesis x [address] to [address] Headaches have been off and on the last week, but usually go away with Tylenol or by themselves. She had a dose of Tylenol in ER and on evaluation by ER doctor had elevated BPs and hyperreflexia. She was recently treated with Amoxicillin this month for a cough she has had since March. Past Medical History Allergies bee venom protein (honey bee) Allergy (Verified 07/14/19 22:40) Anaphylaxis Home Medications: Ambulatory Orders Medication Instructions Recorded Ibuprofen [Motrin] 600 mg PO Q8H PRN PRN #30 tab 07/06/19 Acetaminophen [Tylenol Extra 1,000 mg PO Q6H PRN 07/15/19 Strength] Elderberry Fruit and Flower [Black 1 ea PO DAILY 07/15/19 Elderberry 575 mg Cap] Ferrous Sulfate [Iron] 325 mg PO BID 07/15/19 Surgical History: - - section Psychiatric History: No pertinent psych hx AUTHORIZER History: No pertinent AUTHORIZER history Lives: Spouse/ Significant Other, With Family Smoking Status: Never smoker Tobacco Use: Non-smoker Alcohol: None Drugs: None Review of Systems Constitutional: Reports: Chills, Fever, Malaise. Denies: Anorexia, Weakness Eyes: Denies: Blurred vision, Vision Change HEENT: Reports: Head Aches, - - describes a tickle in her throat. Denies: Sore Throat Cardiovascular: Reports: Edema. Denies: Chest Pain, Chest Tightness Respiratory: Reports: Shortness of Breath. Denies: Cough Gastrointestinal: Reports: Nausea, Vomiting. Denies: Abdominal Pain, Constipation, Diarrhea Genitourinary: Denies: Dysuria, Frequency, Hematuria, Urgency Gynecological: Reports: Vaginal bleeding Musculoskeletal: Denies: Leg Pain Comment: denies breast pain VTE Information - Inpt Only VTE Present on Admission: No Patient Problems: Active and Suspected Problems Hypertension, condition or complication (Acute) fever (Acute) Preeclampsia (Acute) Fever (Acute) Anemia (Acute) Subjective: Denies heavy lochia. Takes Ibuprofen at home prn incisional pain, but notes incisional pain is mild. Denies abdominal pain. - Physical Exam Vitals/I&O's: Vital Signs Temp Pulse Resp BP Pulse Ox 101.8 F H 94 18 160/84 H 100 07/14/19 22:40 07/14/19 22:40 07/14/19 22:40 07/14/19 22:40 07/14/19 22:40 Oxygen Delivery Method Room Air Weight: 98.883 kg Body Mass Index (BMI) 33.1 Repeat BPs 152/74, 158/80, 147/73, 145/75 General: Alert, Oriented x3, Cooperative, No apparent distress, - - warm to touch, no coughing noted over several bedside visits HEENT: Atraumatic, Normocephalic Lungs: Clear to auscultation, Normal air movement Cardiovascular: Regular rate, Regular Rhythm, Normal S1, Normal S2 Abdomen: Soft, Non Tender, Non-Distended, - - Fundus firm and nontender, incision well approximated, dry and clean, no suprapubic tenderness, no CVA tenderness Extremities: No Calf Tenderness, - - + 2 bilateral pitting edema of bilateral lower extremities Neurological: Deep Tendon Reflexes 2+/4 and Symmetrical, Neuro grossly intact, - - +2 clonus bilaterally, reflexes brisk Psych/Mental Status: Normal Affect, Appropriate, Alert and oriented to time, place, person, mood and affect Comment: lochia scant Microbiology Past 72 Hours 07/14/19 23:02 Mucosa - Nose Influenza Types A,B Direct FA ([facility]) - Final Laboratory Results 07/14/19 23:24: U Random Total Protein 30.2 H, Urine Creatinine 58.60, Protein/Creatinin Ratio 515 H 07/14/19 23:24: Urine Color Straw, Urine Clarity Clear, Urine pH 6.0, Ur Specific [place] 1.015, Urine Protein 15 H, Urine Glucose (UA) Normal, Urine Ketones Negative, Urine Occult Blood Negative, Urine Nitrite Negative, Urine Bilirubin Negative, Urine Urobilinogen Normal, Ur Leukocyte Esterase Negative, Urine RBC 0 SEEN, Urine WBC 0-5 SEEN, Ur Squamous Epith Cells 0-5 SEEN, Urine Bacteria 0 SEEN, Urine Mucus 0 SEEN 07/14/19 23:41: WBC 10.1, RBC 2.99 L, Hgb 8.5 L, Hct 26.5 L, MCV 88.6, MCH 28.4, MCHC 32.1, RDW Std Deviation 46.5 H, RDW Coeff of Diana 15.4 H, Plt Count 322, MPV 9.9 07/14/19 23:41: PT Pending, INR Pending, APTT Pending 07/14/19 23:41: Creatinine Pending, Est GFR (MDRD) Af Amer Pending, Est GFR (MDRD) Non-Af Pending, Uric Acid Pending, AST Pending, ALT Pending Assessment/Plan All Active Problems Hypertension, condition or complication (Acute) fever (Acute) Preeclampsia (Acute) Fever (Acute) Anemia (Acute) 34yo POD# 10 s/p PLTCS with 1. Fever -CXR negative -Cough ongoing, however, no cough during any of my assessment. Fever acute - Influenza swab negative, will send respiratory panel. 2. hypertension, preeclampsia -Elevated urine P/C with headache refractory to Tylenol. -Will admit for IV magnesium
[2019-07-14 23:58] LABS: Partial Thromboplast Time 28.2 Seconds (24.1-36.2)
[2019-07-15] VITALS (41 sets, daily range): BP systolic 121–183; BP diastolic 73–152; PULSE 85–124; RESP 16–31; TEMP 37.3–39.8; O2SAT 87–100; BMI 31.4
[2019-07-15 00:02] LABS: AST(SGOT) 13 U/L (15-37); Alanine Aminotransfer ALT/SGPT 25 U/L (13-56); Creatinine, Serum 0.73 mg/dL (0.55-1.02); EST Glomerular Filtration Rate 98 mL/min (>60); Est Glom Filt Rate - Afr Amer 119 mL/min (>60); Estimated Creatinine Clearance 111.61 ml/min; Uric Acid 4.2 mg/dL (2.6-6.0)
[2019-07-15] MEDS: Magnesium Sulfate 4gm/100mL 4 GM/100 ML IV.SOLN. IV (00:23)
[2019-07-15] MEDS: Magnesium Sulfate 4gm/100mL 2 GM/50 ML IV.SOLN. IV (00:44)
[2019-07-15] MEDS: Lactated Ringers 1,000 ML 100 ML IV (01:45)
[2019-07-15] MEDS: proCHLORPERazine 10 MG/2 ML Vial IV (02:06)
[2019-07-15] MEDS: 0.9% Saline Lock 10 ML Syringe IV ×3 (02:11→05:31)
--- NOTE | 2019-07-15 02:45 | PCM.PN.BLA ---
Progress Note Called to evaluate patient for tachycardia to 120s-150s, desaturation and shaking. On my arrival patient reported headache persisted despite Reglan IV. She c/o chills and feeling cold. Tm/c 103, HR 120s bpm, BP 140s/80s, R normal on observation and O2 sat 97% on 2L NC. AAO x 3, Exam unchanged from prior with + 2, brisk b/l UE and LE DTRs and 2 beat clonus. SIRS, r/o sepsis. Blood cultures x 2 and lactate ordered. Will also send Urine culture. CXR wnl. Lovenox. Will obtain Hospitalist consultation. STROKE Vital Signs/Narrative: Vital Signs Temp Pulse Resp BP BP Pulse Ox 07/15/19 02:29 107 H 25 H 141/113 H 98 07/15/19 01:18 99.2 F H 101 H 17 148/84 H 93 07/15/19 01:04 101.7 F H 111 H 25 H 144/85 H 94 07/15/19 00:34 111 H 25 H 144/85 H 94 07/15/19 00:00 101.7 F H 85 27 H 145/75 H 94 07/14/19 23:40 101.7 F H 85 27 H 145/75 H 94
[2019-07-15] MEDS: Ibuprofen 600 MG Tablet PO ×3 (02:49→22:25)
--- NOTE | 2019-07-15 03:02 | NURSING ---
this RN called by PCU nurse to come complete a magnesium sulfate assessment on patient along with OB provider; upon arrival patient AOx3 resting in bed; lung sounds clear bilaterally anteriorly and posteriorly, patient states that she has frontal PICKARD rating 4-5/10 that is not worse from arrival; patient denies visual disturbances; patient denies epigastric pain; clonus +2 noted on right/ no clonus noted left side; unable to accurately assess reflexes d/t inadequate equipment; SHM at bedside to assess patient with reflex hammer.
[2019-07-15] MEDS: 0.9% Normal Saline 1,000 ML 999 ML IV ×2 (03:20→04:27)
--- NOTE | 2019-07-15 03:30 | CON.PCM_ITS ---
Reason for Consult Date of Consultation: 07/15/19 Reason for Consultation: Fever, tachycardic History of Present Illness: Diagnoses: 1. SIRS with Suspected Lactic Acidosis (Severe Sepsis) however, LA pending, Unclear Source 2. hypertension, preeclampsia 3. s/p PLTCS now POD#11 secondary to arrest of descent 4. Normocytic anemia The patient is a 34 y/o F w/ PMHx: s/p PLTCS now POD#11 secondary to arrest of descent who presented initially to the [facility] ED on 07/14/19 secondary to history of ongoing low-grade temperatures over the last 2 days however increased on day of ED presentation noted to be 102 at home with mild nausea as well as emesis x1 but no associated abdominal pain or cramping but admitted loose stools ranging from 1-5 times daily since delivery but more prominent over the last several days in addition to bilateral temporal headache, throbbing, no light or specific sound sensitivity, mild to moderate ranging 1-4 in severity 8 out of 10, not present currently and notes resolves with Tylenol with mild cough, nonproductive and no specific dyspnea complaints associated prompting eventual ED evaluation. Per report patient had been treated for bronchitis with amoxicillin but has been having ongoing pulmonary issues including occasional cough since March 2019. In the ED patient was reportedly hyperreflexic with elevated blood pressures. Patient was admitted per OB service with concerns for hypertension, preeclampsia however she continued to have significantly elevated blood pressures and tachycardia therefore hospitalist service evaluation was requested. Past Medical History Allergies bee venom protein (honey bee) Allergy (Verified 07/14/19 22:40) Anaphylaxis Home Medications: Ambulatory Orders Medication Instructions Recorded Ibuprofen [Motrin] 600 mg PO Q8H PRN PRN #30 tab 07/06/19 Acetaminophen [Tylenol Extra 1,000 mg PO Q6H PRN 07/15/19 Strength] Elderberry Fruit and Flower [Black 1 ea PO DAILY 07/15/19 Elderberry 575 mg Cap] Ferrous Sulfate [Iron] 325 mg PO BID 07/15/19 Surgical History: - - section x1, D&C x2, finger surgery and use. 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 Denies: Chills, Weight Change HEENT: Reports: Head Aches. Denies: Sinus Congestion, Sinus Drainage Cardiovascular: Denies: Chest Pain, Palpitations Respiratory: Reports: Cough. Denies: Shortness of Breath, Shortness of breath at rest, Shortness of breath upon exertion, Sputum production, Wheezing Gastrointestinal: Reports: Nausea, Vomiting. Denies: Abdominal Pain Genitourinary: Denies: Dysuria Gynecological: Reports: Vaginal bleeding Musculoskeletal: Reports: Joint Pain. Denies: Joint Tenderness Skin: Denies: Rash, Wounds Neurological: Denies: Numbness, Tingling, Focal weakness Psychiatric: Denies: Anxiety, Depression, Homicidal Ideations, Suicidal Ideations Hematologic/ Lymphatic: Reports: Anemia. Denies: Easy Bruising, Easy Bleeding Patient Problems: Active and Suspected Problems Hypertension, condition or complication (Acute) fever (Acute) Preeclampsia (Acute) Fever (Acute) Anemia (Acute) Subjective: Seated upright in the PCU bed, no acute distress, fatigued appearance. Objective: Physical Examination: General: awake, alert, oriented x 3 and cooperative, seated upright in the PCU bed, no acute distress, fatigued appearance. Skin: normal color, turgor, no icterus, cyanosis, incision healing well, clean, dry, intact. HEENT: AT/NC, EOMI, PERRLA, moderately dry MM, no carotid bruits or JVD noted. Lungs: Diminished breath sounds bilaterally, greater bases, decreased effort, mild decrease BL bases, no rales, ronchi or wheezing. Heart: Tachycardic with regular rhythm; no gallop, rub audible. Abdomen: soft, NTTP, incision healing well, appears mildly distended, normal bowel sounds, no obvious HSM. Extremities: no cyanosis, clubbing, mild bilateral ankle to distal steiner 1+ pitting edema. Neurological: patient awake, alert, oriented x 3; cognitive function appears b aseline intact; pupils equally reactive to light and accomodation; cranial nerves II-XII grossly normal, moving all 4 extremities, no focal deficits, strength moderately global decrease secondary to acute presentation. Psychiatric: affect appears fatigued, no acute evidence of depressive or anxiety feelings. - Physical Exam Vitals/I&O's: Vital Signs Temp Pulse Resp BP Pulse Ox 103.6 F H 117 H 24 H 161/89 H 97 07/15/19 02:52 07/15/19 02:52 07/15/19 02:52 07/15/19 02:52 07/15/19 02:52 Oxygen Flow Rate (L/min) 2 Oxygen Delivery Method Nasal Cannula Weight: 206 lb 9.17 oz Body Mass Index (BMI) 31.4 Intake and Output for Last 24 Hours 07/13/19 07/14/19 07/15/19 23:59 23:59 23:59 Intake Total 150 / 150 Balance 150 / 150 Microbiology Past 72 Hours 07/14/19 23:02 Mucosa - Nose Influenza Types A,B Direct FA ([facility]) - Final Laboratory Results 07/14/19 23:24: U Random Total Protein 30.2 H, Urine Creatinine 58.60, Protein/Creatinin Ratio 515 H 07/14/19 23:24: Urine Color Straw, Urine Clarity Clear, Urine pH 6.0, Ur Sp ecific [place] 1.015, Urine Protein 15 H, Urine Glucose (UA) Normal, Urine Ketones Negative, Urine Occult Blood Negative, Urine Nitrite Negative, Urine Bilirubin Negative, Urine Urobilinogen Normal, Ur Leukocyte Esterase Negative, Urine RBC 0 SEEN, Urine WBC 0-5 SEEN, Ur Squamous Epith Cells 0-5 SEEN, Urine Bacteria 0 SEEN, Urine Mucus 0 SEEN 07/14/19 23:41: WBC 10.1, RBC 2.99 L, Hgb 8.5 L, Hct 26.5 L, MCV 88.6, MCH 28.4, MCHC 32.1, RDW Std Deviation 46.5 H, RDW Coeff of Diana 15.4 H, Plt Count 322, MPV 9.9 07/14/19 23:41: PT 13.3, INR 1.0, APTT 28.2 07/14/19 23:41: Creatinine 0.73, Estim Creat Clear Calc 111.61, Est GFR (MDRD) Af Amer 119, Est GFR (MDRD) Non-Af 98, Uric Acid 4.2, AST 13 L, ALT 25 07/14/19 23:41: Sodium Pending, Potassium Pending, Chloride Pending, Carbon Dioxide Pending, Anion Gap Pending, BUN Pending, Creatinine Pending, Est GFR (MDRD) Af Amer Pending, Est GFR (MDRD) Non-Af Pending, BUN/Creatinine Ratio Pending, Glucose Pending, Calcium Pending, Total Bilirubin Pending, AST Pending, ALT Pending, Alkaline Phosphatase Pending, Total Protein Pending, Albumin Pending Current Medications Acetaminophen (Tylenol) 1,000 mg PO Q6H PRN PRN PRN Reason: FEVER Enoxaparin Sodium (Lovenox) 40 mg SC DAILY@0600 KASH Hydralazine HCl (Apresoline Iv) 10 mg IV Q4H PRN PRN PRN Reason: SBP > 150 Calcium Gluconate 1 gm/ N/A 10 mls @ 2 mls/min IV X1 PRN PRN Reason: Magnesium Toxicity Magnesium Sulfate (20gm/500ml) 20 gm in 500 mls @ 50 mls/hr IV .Q10H KASH; Protocol Sodium Chloride () 1,000 mls @ 999 mls/hr IV .Q1H1M KASH Stop: 07/15/19 05:15 Sodium Chloride () 1,000 mls @ 150 mls/hr IV .Q6H40M KASH Piperacillin Sod/Tazobactam (Sod 3.375 gm/ Sodium Chloride) 50 mls @ 12.5 mls/hr IV Q8 KASH Ibuprofen (Motrin) 600 mg PO Q6H PRN PRN PRN Reason: Pain 1-02/09 or Fever Last Admin: 07/15/19 02:49 Dose: 600 mg Documented by: Midazolam HCl (Versed) 2 mg IV X1 PRN PRN Reason: Seizure Activity Ondansetron HCl (Zofran) 4 mg IV Q4H PRN PRN PRN Reason: NAUSEA Multivit/Folic Acid/Iron (Prenatabs Fa) 1 tablet PO DAILY@1200 KASH Prochlorperazine Edisylate (Compazine Iv) 10 mg IV Q6H PRN PRN PRN Reason: NAUSEA Last Admin: 07/15/19 02:06 Dose: 10 mg Documented by: Sodium Chloride () 10 - 40 ml IV UD PRN PRN Reason: SALINE FLUSH Last Admin: 07/15/19 02:11 Dose: 10 ml Documented by: Assessment/Plan All Active Problems Hypertension, condition or complication (Acute) fever (Acute) Preeclampsia (Acute) Fever (Acute) Anemia (Acute) The patient is a 34 y/o F w/ PMHx: s/p PLTCS now POD#11 secondary to arrest of descent who presented initially to the [facility] ED on 07/14/19 secondary to history of ongoing low-grade temperatures over the last 2 days however increased on day of ED presentation noted to be 102 at home with mild nausea as well as emesis x1 but no associated abdominal pain or cramping but admitted loose stools in addition to bilateral temporal headache with mild cough, nonproductive. 1. SIRS with Suspected Lactic Acidosis (Severe Sepsis) however, LA pending, Unclear Source: Current presentation significant for obvious SIRS but unclear source with noted unremarkable chest x-ray, unremarkable urinalysis, repeat CBC now with WC 12, hemoglobin 8.6 similar to prior, platelet 344 with left shift, unremarkable CMP suspect likely acid will be elevated and if this is the case with transition patient to the ICU for close monitoring, will continue aggressive hydration with 2 L fluid bolus now and continued aggressive maintenance IV fluids, initiated on Zosyn therapy per discussions with OB, abdominal examination with no concerning findings there will defer CT scan at this time, respiratory viral panel pending and most concerning as possible source, additionally enteric pathogen and C. difficile requested given loose stool history however denied any abdominal cramping or discomfort thus lower suspicion, will plan soft sugar supervisor consultation if ICU transition. 2. hypertension, preeclampsia: Continue management per primary service, OB/Gokul, continued currently on IV magnesium, will add PRN IV hydralazine to assist in achievement of goal status post labetalol 10 mg IV x1 per ED physician prior to transition with further management per ORACLE PROGRAMMER ANALYST discretion with ongoing work-up. 3. : Patient s/p PLTCS now POD#11 secondary to arrest of descent, incision well-appearing with no concern for infection, will add vitamin especially given patient breast-feeding status, encourage continued pumping during acute presentation dumping as needed. 4. Normocytic anemia: Admission hemoglobin 8.5, repeat 8.6, recent delivery, continue iron supplementation. 5. DVT prophylaxis: Lovenox per ORACLE PROGRAMMER ANALYST discretion. Office Visits / Consults: [id number] IP Consult L4
[2019-07-15 03:36] LABS: Absolute Lymphocyte Count 1.15 X10^3/uL (0.83-4.51); Absolute Neutrophil Count 10.2 X10^3/uL (2.0-7.7); Basophil# 0.02 X10^3/uL; Basophil% 0.2 % (0-1); Eosinophil# 0.01 X10^3/uL; Eosinophils% 0.1 % (0-5); Hematocrit 27.3 % (37-47); Hemoglobin 8.6 g/dL (12.0-15.0); Lymphocyte # 1.15 X10^3/ul (4.0); Lymphocyte % 9.6 % (19-41); Mean Corp Hgb Conc 31.5 g/dL (32-36); Mean Corpuscular Volume 88.9 fL (81-99); Mean Platelet Vol. 9.9 fl (6.2-12.0); Monocyte# 0.64 X10^3/uL; Monocyte% 5.3 % (0-10); NRBC Flagged by Analyzer 0 % (0-5); Neutrophil # 10.15 X10^3/uL (2.7-7.7); Neutrophil % 84.2 % (47-70); Platelet Count 344 K/mm3 (150-450); RBC Distribution Width CV 15.8 % (11.6-14.6); Red Blood Count 3.07 M/mm3 (4.2-5.4)
[2019-07-15] MEDS: Magnesium Sulfate 20 GM/500 ML BAG IV ×2 (03:49→14:10)
[2019-07-15 03:54] LABS: ALB/GLOB Ratio 0.7 RATIO (0.9-2.4); AST(SGOT) 13 U/L (15-37); Alanine Aminotransfer ALT/SGPT 24 U/L (13-56); Alkaline Phosphatase 101 U/L (45-117); Anion Gap 9 (5-15); BUN 8 mg/dL (7-18); BUN/Creat Ratio 10.8 RATIO (10-20); Calcium,Total 7.9 mg/dL (8.5-10.1); Chloride 107 mmol/L (98-107); Creatinine, Serum 0.74 mg/dL (0.55-1.02); EST Glomerular Filtration Rate 97 mL/min (>60); Est Glom Filt Rate - Afr Amer 117 mL/min (>60); Globulin 4.1 g/dL (2.2-4.2); Glucose 101 mg/dL (74-106); Potassium 3.7 mmol/L (3.5-5.1); Protein, Total 7.1 g/dL (6.4-8.2); Sodium Level 141 mmol/L (136-145)
[2019-07-15 04:12] LABS: Lactic Acid 1.2 mmol/L (0.4-1.9)
[2019-07-15] MEDS: 0.9% Normal Saline 1,000 ML 150 ML IV ×3 (05:37→19:49)
[2019-07-15] MEDS: Enoxaparin 40 MG/0.4 ML Syringe SC (05:40)
--- NOTE | 2019-07-15 06:32 | NURSING ---
Pt reflexes assessed. Bicep and patellar reflexes at 2+. Pt denies visual changes. LS clear, sats WNL on RA. Ermias VALENZUELA
[2019-07-15 06:48] LABS: Absolute Lymphocyte Count 0.93 X10^3/uL (0.83-4.51); Absolute Neutrophil Count 10.4 X10^3/uL (2.0-7.7); Basophil# 0.01 X10^3/uL; Basophil% 0.1 % (0-1); Eosinophil# 0.01 X10^3/uL; Eosinophils% 0.1 % (0-5); Hematocrit 26.6 % (37-47); Hemoglobin 8.3 g/dL (12.0-15.0); Lymphocyte # 0.93 X10^3/ul (4.0); Lymphocyte % 7.8 % (19-41); Mean Corp Hgb Conc 31.2 g/dL (32-36); Mean Corpuscular Hgb 27.9 pg (27.0-32.0); Mean Corpuscular Volume 89.6 fL (81-99); Monocyte% 4.2 % (0-10); NRBC Flagged by Analyzer 0 % (0-5); Neutrophil # 10.37 X10^3/uL (2.7-7.7); Neutrophil % 87.1 % (47-70); Platelet Count 323 K/mm3 (150-450); RBC Distribution Width CV 15.9 % (11.6-14.6); RBC Distribution Width SD 49.5 fl (35.1-43.9); Red Blood Count 2.97 M/mm3 (4.2-5.4); White Blood Count 11.9 K/mm3 (4.4-11.0)
[2019-07-15 07:08] LABS: ALB/GLOB Ratio 0.7 RATIO (0.9-2.4); AST(SGOT) 13 U/L (15-37); Alanine Aminotransfer ALT/SGPT 22 U/L (13-56); Albumin, Serum 2.8 g/dL (3.2-5.0); Alkaline Phosphatase 94 U/L (45-117); Anion Gap 8 (5-15); BUN 7 mg/dL (7-18); BUN/Creat Ratio 10.7 RATIO (10-20); Calcium,Total 7.4 mg/dL (8.5-10.1); Chloride 110 mmol/L (98-107); Creatinine, Serum 0.65 mg/dL (0.55-1.02); EST Glomerular Filtration Rate 111 mL/min (>60); Est Glom Filt Rate - Afr Amer 135 mL/min (>60); Estimated Creatinine Clearance 125.34 ml/min; Globulin 3.9 g/dL (2.2-4.2); Glucose 105 mg/dL (74-106); Potassium 3.3 mmol/L (3.5-5.1); Protein, Total 6.7 g/dL (6.4-8.2); Sodium Level 141 mmol/L (136-145)
[2019-07-15] MEDS: Acetaminophen 500 MG Tablet 1000 MG PO (08:31)
[2019-07-15] MEDS: Ferrous Sulfate 325 MG Tablet PO ×2 (08:31→17:37)
--- NOTE | 2019-07-15 09:48 | CT_ITS ---
STUDY: CT ABDOMEN AND PELVIS WITH CONTRAST REASON FOR EXAM: Female, 34 years old. FEVER, POST HTN, EMESIS, S/P -- IV ISSUES DURING INJECTION-BEST SCAN POSSIBLE RADIATION DOSAGE (If Supplied By Facility): CTDIvol = ( 16.48 ) mGy, DLP = ( 1596.64 ) mGycm TECHNIQUE: Transaxial images were obtained from the dome of the diaphragm to the symphysis pubis with oral contrast. IV 100mL Isovue-300 was administered. Sagittal and coronal images were reconstructed. Individualized dose optimization techniques were used for this CT. COMPARISON: None. FINDINGS: There is parenchymal opacities of the bilateral lung bases with small volume pleural effusions. The visualized portions of the heart are within normal limits. Normal liver. Normal gallbladder and extrahepatic biliary system. Normal spleen. Normal pancreas. Normal bilateral adrenal glands. Minimal distention of the right collecting system and ureter likely related to postgravid uterus/recent . No perinephric edema. Normal left kidney. Normal visualized stomach. Normal small intestine. Normal colon. The appendix is visualized and appears normal. Normal abdominal aorta. Normal inferior vena cava. Normal retroperitoneum. Normal urinary bladder. Enlargement of the uterus is compatible with recent . Small amount of adjacent pelvic free fluid and induration of the anterior abdominal wall likely related to . No focal fluid collection. Otherwise normal abdominal wall. Normal osseous structures. CT/Abdomen/Pelvis WITH Contrast IMPRESSION: 1. No focal fluid collection or bowel obstruction. 2. Recent , post gravid uterus 3. Bibasilar parenchymal opacities with small effusions, atelectasis versus airspace disease. Electronically Signed: Júnior Kaplan MD ([place]) at 13:44 EDT , Service support ,
--- NOTE | 2019-07-15 11:00 | PN.OBGYN_ITS ---
Patient Problems: Active and Suspected Problems Hypertension, condition or complication (Acute) fever (Acute) Preeclampsia (Acute) Fever (Acute) Anemia (Acute) Subjective: Reports headache resolved overnight, but has recurred. Denies vision changes, shortness of breath, chest pain, sore throat. Nurse indicates Donna reported a cold last week including runny nose, coughing, sneezing, however symptoms now resolved. Donna denies painfulness. She continues pumping, no breast pain. Objective: AVSS - Physical Exam Vitals/I&O's: Vital Signs Temp Pulse Resp BP Pulse Ox 101.1 F H 108 H 19 H 145/87 H 98 07/15/19 09:00 07/15/19 10:00 07/15/19 10:00 07/15/19 10:00 07/15/19 10:00 Oxygen Flow Rate (L/min) 2 Oxygen Delivery Method Nasal Cannula Weight: 93.7 kg Body Mass Index (BMI) 31.4 Intake and Output for Last 24 Hours 07/13/19 07/14/19 07/15/19 23:59 23:59 23:59 Intake Total 3297.50 / 3297.50 Output Total 3050 / 3050 Balance 247.50 / 247.50 General: Alert, Oriented x3, Cooperative, No apparent distress HEENT: Atraumatic, Normocephalic Lungs: Clear to auscultation, Normal air movement Cardiovascular: Regular Rhythm, Normal S1, Normal S2, Tachycardic Abdomen: Soft, Non Tender, Non-Distended, - - fundus firm and nontender, incision healing well and nontender without erythema Extremities: No Calf Tenderness, - - +2 b/l LE edema Neurological: Neuro grossly intact, - - +1 b/L LE DTRs, no clonus Psych/Mental Status: Normal Affect, Appropriate, Alert and oriented to time, place, person, mood and affect Microbiology Past 72 Hours 07/15/19 00:46 Mucosa - Nose Respiratory Panel (PCR) - Final 07/14/19 23:02 Mucosa - Nose Influenza Types A,B Direct FA ([facility]) - Final Laboratory Results 07/14/19 23:24: U Random Total Protein 30.2 H, Urine Creatinine 58.60, Protein/Creatinin Ratio 515 H 07/14/19 23:24: Urine Color Straw, Urine Clarity Clear, Urine pH 6.0, Ur Specific [place] 1.015, Urine Protein 15 H, Urine Glucose (UA) Normal, Urine Ketones Negative, Urine Occult Blood Negative, Urine Nitrite Negative, Urine Bilirubin Negative, Urine Urobilinogen Normal, Ur Leukocyte Esterase Negative, Urine RBC 0 SEEN, Urine WBC 0-5 SEEN, Ur Squamous Epith Cells 0-5 SEEN, Urine Bacteria 0 SEEN, Urine Mucus 0 SEEN 07/14/19 23:41: WBC 10.1, RBC 2.99 L, Hgb 8.5 L, Hct 26.5 L, MCV 88.6, MCH 28.4, MCHC 32.1, RDW Std Deviation 46.5 H, RDW Coeff of Diana 15.4 H, Plt Count 322, MPV 9.9 07/14/19 23:41: PT 13.3, INR 1.0, APTT 28.2 07/14/19 23:41: Creatinine 0.73, Estim Creat Clear Calc 111.61, Est GFR (MDRD) Af Amer 119, Est GFR (MDRD) Non-Af 98, Uric Acid 4.2, AST 13 L, ALT 25 07/15/19 03:05: Lactic Acid 1.2 07/15/19 03:20: Sodium 141, Potassium 3.7, Chloride 107, Carbon Dioxide 25.0, Anion Gap 9, BUN 8, Creatinine 0.74, Estim Creat Clear Calc 110.10, Est GFR (MDRD) Af Amer 117, Est GFR (MDRD) Non-Af 97, BUN/Creatinine Ratio 10.8, Glucose 101, Calcium 7.9 L, Total Bilirubin 0.40, AST 13 L, ALT 24, Alkaline Phosphatase 101, Total Protein 7.1, Albumin 3.0 L, Globulin 4.1, Albumin/Globulin Ratio 0.7 L 07/15/19 03:20: WBC 12.0 H, RBC 3.07 L, Hgb 8.6 L, Hct 27.3 L, MCV 88.9, MCH 28.0, MCHC 31.5 L, RDW Std Deviation 48.0 H, RDW Coeff of Diana 15.8 H, Plt Count 344, MPV 9.9, Immature Gran % (Auto) 0.600, Neut % (Auto) 84.2 H, Lymph % (Auto) 9.6 L, [place] % (Auto) 5.3, Eos % (Auto) 0.1, Baso % (Auto) 0.2, Absolute Neuts (auto) 10.2 H, Absolute Lymphs (auto) 1.15, Nucleated RBC % 0 07/15/19 06:15: WBC 11.9 H, RBC 2.97 L, Hgb 8.3 L, Hct 26.6 L, MCV 89.6, MCH 27.9, MCHC 31.2 L, RDW Std Deviation 49.5 H, RDW Coeff of Diana 15.9 H, Plt Count 323, MPV 10.0, Immature Gran % (Auto) 0.700, Neut % (Auto) 87.1 H, Lymph % (Auto) 7.8 L, [place] % (Auto) 4.2, Eos % (Auto) 0.1, Baso % (Auto) 0.1, Absolute Neuts (auto) 10.4 H, Absolute Lymphs (auto) 0.93, Nucleated RBC % 0 07/15/19 06:15: Sodium 141, Potassium 3.3 L, Chloride 110 H, Carbon Dioxide 23.0, Anion Gap 8, BUN 7, Creatinine 0.65, Estim Creat Clear Calc 125.34, Est GFR (MDRD) Af Amer 135, Est GFR (MDRD) Non-Af 111, BUN/Creatinine Ratio 10.7, Glucose 105, Calcium 7.4 L, Total Bilirubin 0.50, AST 13 L, ALT 22, Alkaline Phosphatase 94, Total Protein 6.7, Albumin 2.8 L, Globulin 3.9, Albumin/Globulin Ratio 0.7 L Current Medications Acetaminophen (Tylenol) 1,000 mg PO Q6H PRN PRN PRN Reason: FEVER Last Admin: 07/15/19 08:31 Dose: 1,000 mg Documented by: Enoxaparin Sodium (Lovenox) 40 mg SC DAILY@0600 [facility] Last Admin: 07/15/19 05:40 Dose: 40 mg Documented by: Ferrous Sulfate (Ferrous Sulfate) 325 mg PO BIDCM [facility] Last Admin: 07/15/19 08:31 Dose: 325 mg Documented by: Hydralazine HCl (Apresoline Iv) 10 mg IV Q4H PRN PRN PRN Reason: SBP > 150 Calcium Gluconate 1 gm/ N/A 10 mls @ 2 mls/min IV X1 PRN PRN Reason: Magnesium Toxicity Magnesium Sulfate (20gm/500ml) 20 gm in 500 mls @ 50 mls/hr IV .Q10H KASH; Protocol Last Infusion: 07/15/19 04:30 Dose: 2 gm/hr, 50 mls/hr Documented by: Sodium Chloride () 1,000 mls @ 150 mls/hr IV .Q6H40M KASH Last Admin: 07/15/19 05:37 Dose: 150 mls/hr Documented by: Piperacillin Sod/Tazobactam (Sod 3.375 gm/ Sodium Chloride) 50 mls @ 12.5 mls/hr IV Q8 KASH Last Infusion: 07/15/19 10:28 Dose: Infused Documented by: Ibuprofen (Motrin) 600 mg PO Q6H PRN PRN PRN Reason: Pain 1-02/09 or Fever Last Admin: 07/15/19 02:49 Dose: 600 mg Documented by: Midazolam HCl (Versed) 2 mg IV X1 PRN PRN Reason: Seizure Activity Nifedipine (Procardia Xl) 30 mg PO DAILY KASH Ondansetron HCl (Zofran) 4 mg IV Q4H PRN PRN PRN Reason: NAUSEA Multivit/Folic Acid/Iron (Prenatabs Fa) 1 tablet PO DAILY@1200 KASH Prochlorperazine Edisylate (Compazine Iv) 10 mg IV Q6H PRN PRN PRN Reason: NAUSEA Last Admin: 07/15/19 02:06 Dose: 10 mg Documented by: Sodium Chloride () 10 - 40 ml IV UD PRN PRN Reason: SALINE FLUSH Last Admin: 07/15/19 05:31 Dose: 10 ml Documented by: Medical Necessity - Tobacco Use Smoking Status: Never smoker Tobacco Use: Non-smoker Assessment/Plan All Active Problems Hypertension, condition or complication (Acute) fever (Acute) Preeclampsia (Acute) Fever (Acute) Anemia (Acute) 34yo POD# 11 s/p PLTCS with 1. Fever -CXR negative -Cough reported, however, no cough during any of my assessment. -Influenza and respiratory panel negative -Hospitalist consultation appreciated - Lactate wnl. Pt clinically without clear source of infection and exam apart from preeclampsia signs is unremarkable. Discussed with Hospitalist COVID19 testing. Given patient with no known exposures, self-sequestered , and has no significant respiratory pathology, will defer testing. CT A/P pending to r/o acute intra-abdominal pathology. Will also do CTA Chest to r/o VTE. Dfdx septic pelvic thrombophlebit is. 2. hypertension, preeclampsia -BPs mostly mild range elevation with infrequent SBP>160 -Start Nifedipine XL 30mg -Continue magnesium, no si/sx toxicity
--- NOTE | 2019-07-15 11:16 | CT_ITS ---
STUDY: CTA CHEST REASON FOR EXAM: Female, 34 years old. FEVER, POST PARTEM HTN, EMESIS, S/P -- IV ISSUES DURING INJECTION-BEST SCAN POSSIBLE RADIATION DOSAGE (If Supplied By Facility): CTDIvol = ( 16.48 ) mGy, DLP = ( 1596.64 ) mGycm TECHNIQUE: The examination was performed with the intravenous administration of IV 100mL Isovue-300. Post-processing of the angiographic images was performed, with multiplanar reformation and 3D reconstruction. Individualized dose optimization techniques were used for this CT. COMPARISON: None. FINDINGS: There is limited enhancement of the main pulmonary artery and right and left pulmonary arteries. There is limited enhancement of the bilateral peripheral pulmonary arteries. There is no demonstrated pulmonary embolism. Normal thoracic aorta and visualized great vessels. There is no demonstrated aortic dissection. There is cardiomegaly. Normal mediastinum. Normal hilar regions. Normal visualized trachea and bronchi. The lungs are well expanded. Bandlike opacities in the dependent portions of bilateral lower lobes with trace pleural effusions likely representing atelectasis rather than organizing pneumonia. Normal pleura. Normal chest wall structures. Normal osseous structures. Upper abdomen described on abdomen/pelvis CT report. CT/CTA Chest W/WO Contrast IMPRESSION: 1. Limited due to IV contrast bolus and respiratory motion. No obvious central or segmental pulmonary embolism. If there is high index of suspicion for pulmonary embolism, recommend repeat CTA chest or VQ scan. 2. Probable atelectasis of the bilateral lower lobes. Trace volume effusions. Electronically Signed: Júnior Kaplan MD ([place]) at 13:57 EDT , Service support ,
[2019-07-15] MEDS: Prenatal Vits Tablet 1 TABLET PO (13:29)
[2019-07-15] MEDS: NIFEdipine 30 MG Tablet PO (13:29)
--- NOTE | 2019-07-15 15:50 | CM.UR ---
Met face to face with patient and her . Previously total independent. Denies any needs for assistance or equipment. Discussed that she is currently on oxygen. Explained that likely she will be off of that prior to discharge however we will continue to follow and if she needs to go home on it, CM will be available to help arrange it. Verb understanding. Lashell Quintana RN, CCM.
[2019-07-15] MEDS: Acetaminophen/Butalbital/Caffe 1 Tablet 2 TABLET PO (17:37)
[2019-07-15] MEDS: Enoxaparin 100 MG/ML Syringe 90 MG SC (17:37)
[2019-07-16] VITALS (13 sets, daily range): BP systolic 100–131; BP diastolic 65–85; PULSE 79–99; RESP 16–25; TEMP 37.3–38.1; O2SAT 94–99
[2019-07-16] MEDS: 0.9% Normal Saline 1,000 ML 150 ML IV ×2 (02:34→09:37)
[2019-07-16] MEDS: Acetaminophen 500 MG Tablet 1000 MG PO ×2 (03:18→15:00)
[2019-07-16] MEDS: Enoxaparin 100 MG/ML Syringe 90 MG SC ×2 (05:19→18:03)
[2019-07-16] MEDS: Ibuprofen 600 MG Tablet PO ×2 (05:34→18:08)
[2019-07-16 05:52] LABS: Absolute Lymphocyte Count 0.95 X10^3/uL (0.83-4.51); Basophil# 0.01 X10^3/uL; Basophil% 0.1 % (0-1); Hematocrit 24.6 % (37-47); Hemoglobin 7.7 g/dL (12.0-15.0); Lymphocyte # 0.95 X10^3/ul (4.0); Lymphocyte % 10.2 % (19-41); Mean Corp Hgb Conc 31.3 g/dL (32-36); Mean Corpuscular Volume 89.5 fL (81-99); Mean Platelet Vol. 9.9 fl (6.2-12.0); Monocyte# 0.27 X10^3/uL; Monocyte% 2.9 % (0-10); NRBC Flagged by Analyzer 0 % (0-5); Neutrophil # 8.01 X10^3/uL (2.7-7.7); Neutrophil % 86.5 % (47-70); POSITIVE MORPHOLOGY YES; Platelet Count 261 K/mm3 (150-450); RBC Distribution Width CV 16.5 % (11.6-14.6); RBC Distribution Width SD 53.7 fl (35.1-43.9); Red Blood Count 2.75 M/mm3 (4.2-5.4); White Blood Count 9.3 K/mm3 (4.4-11.0)
[2019-07-16 06:02] LABS: Differential Indicated SCAN CRITERIA MET
[2019-07-16 06:34] LABS: Anisocytosis 1+; Hypochromasia 2+; Platelet Estimate ADEQUATE (ADEQ); Polychromasia RARE
[2019-07-16 06:49] LABS: ALB/GLOB Ratio 0.7 RATIO (0.9-2.4); AST(SGOT) 17 U/L (15-37); Alanine Aminotransfer ALT/SGPT 27 U/L (13-56); Albumin, Serum 2.5 g/dL (3.2-5.0); Alkaline Phosphatase 89 U/L (45-117); Anion Gap 6 (5-15); BUN 5 mg/dL (7-18); BUN/Creat Ratio 8.7 RATIO (10-20); Calcium,Total 6.5 mg/dL (8.5-10.1); Chloride 109 mmol/L (98-107); Creatinine, Serum 0.57 mg/dL (0.55-1.02); EST Glomerular Filtration Rate 130 mL/min (>60); Est Glom Filt Rate - Afr Amer 157 mL/min (>60); Estimated Creatinine Clearance 142.93 ml/min; Globulin 3.8 g/dL (2.2-4.2); Glucose 103 mg/dL (74-106); Potassium 3.5 mmol/L (3.5-5.1); Protein, Total 6.3 g/dL (6.4-8.2); Sodium Level 139 mmol/L (136-145)
--- NOTE | 2019-07-16 07:45 | PN.OBGYN_ITS ---
Patient Problems: Active and Suspected Problems Hypertension, condition or complication (Acute) fever (Acute) Preeclampsia (Acute) Fever (Acute) Anemia (Acute) Subjective: Denies headache, vision changes, shortness of breath, chest pain, fever, chills, nausea, vomiting, abdominal pain. Reports a little cough. She feels better today. OOB. Reports leg swelling improves. Objective: AVSS - Physical Exam Vitals/I&O's: Vital Signs Temp Pulse Resp BP Pulse Ox 100.1 F H 90 18 100/65 95 07/16/19 05:20 07/16/19 05:20 07/16/19 05:20 07/16/19 05:20 07/16/19 08:08 Oxygen Flow Rate (L/min) 2 Oxygen Delivery Method Nasal Cannula Weight: 93.7 kg Body Mass Index (BMI) 31.4 Intake and Output for Last 24 Hours 07/14/19 07/15/19 07/16/19 23:59 23:59 23:59 Intake Total 8993.33 / 8993.33 1999 Output Total 8350 / 8350 850 / 850 Balance 643.33 / 643.33 1150 / 1150 General: Alert, Oriented x3, Cooperative, - - no coughing during my assessment HEENT: Atraumatic, Normocephalic Lungs: Clear to auscultation, Normal air movement Cardiovascular: Regular rate, Regular Rhythm, Normal S1, Normal S2 Abdomen: Soft, Non Tender, Non-Distended, - - Incision c/d/i, fundus firm and nontender Extremities: - - +1 b/l LE edema Neurological: Neuro grossly intact Psych/Mental Status: Normal Affect, Appropriate, Alert and oriented to time, place, person, mood and affect Microbiology Past 72 Hours 07/15/19 00:46 Mucosa - Nose Respiratory Panel (PCR) - Final 07/14/19 23:02 Mucosa - Nose Influenza Types A,B Direct FA ([facility]) - Final Laboratory Results 07/15/19 16:50: Miscellaneous Test Pending 07/16/19 05:11: WBC 9.3, RBC 2.75 L, Hgb 7.7 L, Hct 24.6 L, MCV 89.5, MCH 28.0, MCHC 31.3 L, RDW Std Deviation 53.7 H, RDW Coeff of Diana 16.5 H, Plt Count 261, MPV 9.9, Immature Gran % (Auto) 0.300, Neut % (Auto) 86.5 H, Lymph % (Auto) 10.2 L, [place] % (Auto) 2.9, Eos % (Auto) 0.0, Baso % (Auto) 0.1, Absolute Neuts (auto) 8.0 H, Absolute Lymphs (auto) 0.95, Nucleated RBC % 0, Platelet Estimate ADEQUATE, Polychromasia RARE, Hypochromasia 2+, Anisocytosis 1+ 07/16/19 05:11: Sodium 139, Potassium 3.5, Chloride 109 H, Carbon Dioxide 24.0, Anion Gap 6, BUN 5 L, Creatinine 0.57, Estim Creat Clear Calc 142.93, Est GFR (MDRD) Af Amer 157, Est GFR (MDRD) Non-Af 130, BUN/Creatinine Ratio 8.7 L, Glucose 103, Calcium 6.5 L*, Total Bilirubin 0.50, AST 17, ALT 27, Alkaline Phosphatase 89, Total Protein 6.3 L, Albumin 2.5 L, Globulin 3.8, Albumin/Globulin Ratio 0.7 L Current Medications Acetaminophen (Tylenol) 1,000 mg PO Q6H PRN PRN PRN Reason: FEVER Last Admin: 07/16/19 03:18 Dose: 1,000 mg Documented by: Enoxaparin Sodium (Lovenox) 90 mg SC Q12@0600,1800 [facility] Last Admin: 07/16/19 05:19 Dose: 90 mg Documented by: Ferrous Sulfate (Ferrous Sulfate) 325 mg PO BIDCM [facility] Last Admin: 07/15/19 17:37 Dose: 325 mg Documented by: Hydralazine HCl (Apresoline Iv) 10 mg IV Q4H PRN PRN PRN Reason: SBP > 150 Calcium Gluconate 1 gm/ N/A 10 mls @ 2 mls/min IV X1 PRN PRN Reason: Magnesium Toxicity Sodium Chloride () 1,000 mls @ 150 mls/hr IV .Q6H40M [facility] Last Admin: 07/16/19 02:34 Dose: 150 mls/hr Documented by: Piperacillin Sod/Tazobactam (Sod 3.375 gm/ Sodium Chloride) 50 mls @ 12.5 mls/hr IV Q8 [facility] Last Admin: 07/16/19 05:19 Dose: 12.5 mls/hr Documented by: Ibuprofen (Motrin) 600 mg PO Q6H PRN PRN PRN Reason: Pain 1-1010 or Fever Last Admin: 07/16/19 05:34 Dose: 600 mg Documented by: Midazolam HCl (Versed) 2 mg IV X1 PRN PRN Reason: Seizure Activity Nifedipine (Procardia Xl) 30 mg PO DAILY [facility] Last Admin: 07/15/19 13:29 Dose: 30 mg Documented by: Ondansetron HCl (Zofran) 4 mg IV Q4H PRN PRN PRN Reason: NAUSEA Multivit/Folic Acid/Iron (Prenatabs Fa) 1 tablet PO DAILY@1200 [facility] Last Admin: 07/15/19 13:29 Dose: 1 tablet Documented by: Prochlorperazine Edisylate (Compazine Iv) 10 mg IV Q6H PRN PRN PRN Reason: NAUSEA Last Admin: 07/15/19 02:06 Dose: 10 mg Documented by: Sodium Chloride () 10 - 40 ml IV UD PRN PRN Reason: SALINE FLUSH Last Admin: 07/15/19 05:31 Dose: 10 ml Documented by: Medical Necessity - Tobacco Use Smoking Status: Never smoker Tobacco Use: Non-smoker Assessment/Plan All Active Problems Hypertension, condition or complication (Acute) fever (Acute) Preeclampsia (Acute) Fever (Acute) Anemia (Acute) 34yo POD# 12 s/p PLTCS with 1. Fever of unknown origin -Lactate normal. CXR, CTA Chest, CT A/P negative for acute or infectious pathology. -Influenza and respiratory panel negative -Blood cultures, COVID19 test pending -Will continue antibiotics at this time, consider change of antibiotics if fever curve not improved after 48h. Lovenox bid for possible septic pelvic thrombophlebitis. Await additional recs from Hospitalist. 2. hypertension, preeclampsia s/p magnesium -Nifedipine XL 30mg started yesterday evening, BPs normalized -Hypocalcemia likely 2/2 magnesium infusion. Calcium gluconate x 1 3. Anemia -hx hemorrhage -No indication for transfusion, will hold iron supplementation at this time should bacterial infection be present
--- NOTE | 2019-07-16 08:25 | CPS ---
every time i went in the room I wore N-95, eye protection and contact precaution protection, Coronavirus test still pending
[2019-07-16] MEDS: NIFEdipine 30 MG Tablet PO (09:37)
[2019-07-16] MEDS: Prenatal Vits Tablet 1 TABLET PO (09:37)
[2019-07-16] MEDS: Ferrous Sulfate 325 MG Tablet PO ×2 (09:37→15:01)
--- NOTE | 2019-07-16 13:15 | PCM.PN.HOSP ---
Patient Problems: Active and Suspected Problems Hypertension, condition or complication (Acute) fever (Acute) Preeclampsia (Acute) Fever (Acute) Anemia (Acute) Subjective: Feeling much better today, still with intermittent fevers up to 103 though she says she is feeling much better today than she did yesterday. Vitals/I&O's: Vital Signs Temp Pulse Resp BP Pulse Ox 99.1 F 79 18 131/74 H 97 07/16/19 11:20 07/16/19 11:20 07/16/19 11:20 07/16/19 11:20 07/16/19 11:20 Oxygen Flow Rate (L/min) 2 Oxygen Delivery Method Room Air Weight: 206 lb 9.17 oz Body Mass Index (BMI) 31.4 Intake and Output for Last 24 Hours 07/14/19 07/15/19 07/16/19 23:59 23:59 23:59 Intake Total 8993.33 / 8993.33 3530 / 3530 Output Total 8350 / 8350 850 / 850 Balance 643.33 / 643.33 2680 / 2680 General: Alert, Oriented x3, Cooperative, No apparent distress HEENT: Atraumatic, PERRLA, EOMI, Normocephalic Oral: Moist Mucosa Neck: Supple, No JVD Lungs: Clear to auscultation, Normal air movement, No rhonchi, No wheeze, No rales Cardiovascular: Regular rate, Regular Rhythm, Normal S1, Normal S2, No murmurs Abdomen: Soft, Non Tender, Non-Distended, No Hepato-splenomegaly Extremities: No edema, Capillary Refill Less than 3 Seconds Skin: No rashes, No breakdown, Incision - CDI Neurological: Neuro grossly intact, Sensory exam intact to light touch and pain Psych/Mental Status: Normal Affect, Appropriate Microbiology Past 72 Hours 07/15/19 00:46 Mucosa - Nose Respiratory Panel (PCR) - Final 07/14/19 23:02 Mucosa - Nose Influenza Types A,B Direct FA ([facility]) - Final Laboratory Results 07/15/19 16:50: Miscellaneous Test Pending 07/16/19 05:11: WBC 9.3, RBC 2.75 L, Hgb 7.7 L, Hct 24.6 L, MCV 89.5, MCH 28.0, MCHC 31.3 L, RDW Std Deviation 53.7 H, RDW Coeff of Diana 16.5 H, Plt Count 261, MPV 9.9, Immature Gran % (Auto) 0.300, Neut % (Auto) 86.5 H, Lymph % (Auto) 10.2 L, [place] % (Auto) 2.9, Eos % (Auto) 0.0, Baso % (Auto) 0.1, Absolute Neuts (auto) 8.0 H, Absolute Lymphs (auto) 0.95, Nucleated RBC % 0, Platelet Estimate ADEQUATE, Polychromasia RARE, Hypochromasia 2+, Anisocytosis 1+ 07/16/19 05:11: Sodium 139, Potassium 3.5, Chloride 109 H, Carbon Dioxide 24.0, Anion Gap 6, BUN 5 L, Creatinine 0.57, Estim Creat Clear Calc 142.93, Est GFR (MDRD) Af Amer 157, Est GFR (MDRD) Non-Af 130, BUN/Creatinine Ratio 8.7 L, Glucose 103, Calcium 6.5 L*, Total Bilirubin 0.50, AST 17, ALT 27, Alkaline Phosphatase 89, Total Protein 6.3 L, Albumin 2.5 L, Globulin 3.8, Albumin/Globulin Ratio 0.7 L Current Medications Acetaminophen (Tylenol) 1,000 mg PO Q6H PRN PRN PRN Reason: FEVER Last Admin: 07/16/19 03:18 Dose: 1,000 mg Documented by: Enoxaparin Sodium (Lovenox) 90 mg SC Q12@0600,1800 [facility] Last Admin: 07/16/19 05:19 Dose: 90 mg Documented by: Ferrous Sulfate (Ferrous Sulfate) 325 mg PO BIDCM [facility] Last Admin: 07/16/19 09:37 Dose: 325 mg Documented by: Hydralazine HCl (Apresoline Iv) 10 mg IV Q4H PRN PRN PRN Reason: SBP > 150 Calcium Gluconate 1 gm/ N/A 10 mls @ 2 mls/min IV X1 PRN PRN Reason: Magnesium Toxicity Last Admin: 07/16/19 09:45 Dose: 2 mls/min Documented by: Sodium Chloride () 1,000 mls @ 100 mls/hr IV .Q10H [facility] Last Admin: 07/16/19 09:37 Dose: 150 mls/hr Documented by: Piperacillin Sod/Tazobactam (Sod 3.375 gm/ Sodium Chloride) 50 mls @ 12.5 mls/hr IV Q8 [facility] Last Infusion: 07/16/19 09:37 Dose: Infused Documented by: Ibuprofen (Motrin) 600 mg PO Q6H PRN PRN PRN Reason: Pain 1-1010 or Fever Last Admin: 07/16/19 05:34 Dose: 600 mg Documented by: Midazolam HCl (Versed) 2 mg IV X1 PRN PRN Reason: Seizure Activity Nifedipine (Procardia Xl) 30 mg PO DAILY [facility] Last Admin: 07/16/19 09:37 Dose: 30 mg Documented by: Ondansetron HCl (Zofran) 4 mg IV Q4H PRN PRN PRN Reason: NAUSEA Multivit/Folic Acid/Iron (Prenatabs Fa) 1 tablet PO DAILY@1200 [facility] Last Admin: 07/16/19 09:37 Dose: 1 tablet Documented by: Prochlorperazine Edisylate (Compazine Iv) 10 mg IV Q6H PRN PRN PRN Reason: NAUSEA Last Admin: 07/15/19 02:06 Dose: 10 mg Documented by: Sodium Chloride () 10 - 40 ml IV UD PRN PRN Reason: SALINE FLUSH Last Admin: 07/15/19 05:31 Dose: 10 ml Documented by: STROKE Vital Signs/Narrative: Vital Signs Temp Pulse Resp BP Pulse Ox 07/16/19 11:20 99.1 F 79 18 131/74 H 97 Medical Necessity - Tobacco Use Smoking Status: Never smoker Tobacco Use: Non-smoker Assessment/Plan All Active Problems Hypertension, condition or complication (Acute) fever (Acute) Preeclampsia (Acute) Fever (Acute) Anemia (Acute) 1. Fever and sepsis likely from septic pelvic thrombophlebitis/postop day 12 from -Per literature review it is possible to have a deep septic pelvic thrombophlebitis up to 3 weeks after -Continue with therapeutic Lovenox and Zosyn -She is currently in isolation secondary to coronavirus testing -Once we have a negative result, she can likely be discharged home with oral antibiotics 2. 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 Normocytic anemia -Hemoglobin dropped down to 7.7 today however her IV fluids have been running at 150 since admission -We given several boluses -This is likely hemodilution especially from an admission hemoglobin of 8.5 4. Hypocalcemia -Based on albumin correction she is hypocalcemic -Currently receiving calcium gluconate DVT: Therapeutic Lovenox Inpatient E&M: 16537 Subs Hosp L2
[2019-07-16] MEDS: 0.9% Normal Saline 1,000 ML 100 ML IV (18:02)
[2019-07-17] VITALS (8 sets, daily range): BP systolic 131–149; BP diastolic 81–90; PULSE 53–90; RESP 16–18; TEMP 36.9–38; O2SAT 94–99
--- NOTE | 2019-07-17 02:38 | NURSING ---
Breast milk bags wiped with bleach wipes, bagged in biohazard bag and carried by LIBRARY MONITOR to OB for refrigeration.
[2019-07-17] MEDS: 0.9% Normal Saline 1,000 ML 100 ML IV ×2 (04:48→14:56)
[2019-07-17 05:26] LABS: Absolute Lymphocyte Count 1.61 X10^3/uL (0.83-4.51); Absolute Neutrophil Count 3.5 X10^3/uL (2.0-7.7); Basophil# 0.01 X10^3/uL; Basophil% 0.2 % (0-1); Eosinophil# 0.12 X10^3/uL; Eosinophils% 2.2 % (0-5); Hematocrit 24.7 % (37-47); Hemoglobin 7.7 g/dL (12.0-15.0); Lymphocyte # 1.61 X10^3/ul (4.0); Lymphocyte % 28.9 % (19-41); Mean Corp Hgb Conc 31.2 g/dL (32-36); Mean Corpuscular Hgb 28.3 pg (27.0-32.0); Mean Corpuscular Volume 90.8 fL (81-99); Mean Platelet Vol. 9.7 fl (6.2-12.0); Monocyte# 0.37 X10^3/uL; Monocyte% 6.6 % (0-10); NRBC Flagged by Analyzer 0 % (0-5); Neutrophil # 3.45 X10^3/uL (2.7-7.7); Neutrophil % 61.7 % (47-70); Platelet Count 232 K/mm3 (150-450); RBC Distribution Width CV 15.7 % (11.6-14.6); RBC Distribution Width SD 51.2 fl (35.1-43.9); Red Blood Count 2.72 M/mm3 (4.2-5.4); White Blood Count 5.6 K/mm3 (4.4-11.0)
[2019-07-17 05:54] LABS: ALB/GLOB Ratio 0.6 RATIO (0.9-2.4); AST(SGOT) 14 U/L (15-37); Alanine Aminotransfer ALT/SGPT 27 U/L (13-56); Albumin, Serum 2.3 g/dL (3.2-5.0); Alkaline Phosphatase 93 U/L (45-117); Anion Gap 5 (5-15); BUN 9 mg/dL (7-18); BUN/Creat Ratio 14.6 RATIO (10-20); Chloride 111 mmol/L (98-107); Creatinine, Serum 0.62 mg/dL (0.55-1.02); EST Glomerular Filtration Rate 119 mL/min (>60); Est Glom Filt Rate - Afr Amer 144 mL/min (>60); Estimated Creatinine Clearance 131.41 ml/min; Globulin 3.8 g/dL (2.2-4.2); Glucose 87 mg/dL (74-106); Potassium 3.9 mmol/L (3.5-5.1); Protein, Total 6.1 g/dL (6.4-8.2); Sodium Level 141 mmol/L (136-145)
[2019-07-17] MEDS: Enoxaparin 100 MG/ML Syringe 90 MG SC ×2 (06:37→17:12)
[2019-07-17] MEDS: Ferrous Sulfate 325 MG Tablet PO ×2 (09:15→17:13)
[2019-07-17] MEDS: Acetaminophen 500 MG Tablet 1000 MG PO (09:15)
[2019-07-17] MEDS: NIFEdipine 30 MG Tablet PO (09:15)
--- NOTE | 2019-07-17 09:27 | PN_ITS ---
Patient Problems: Active and Suspected Problems Hypertension, condition or complication (Acute) fever (Acute) Preeclampsia (Acute) Fever (Acute) Anemia (Acute) Subjective: Doing well, fevers have resolved it looks like her last temperature was yesterday at 5 in the afternoon Vitals/I&O's: Vital Signs Temp Pulse Resp BP Pulse Ox 100.4 F H 84 18 131/81 H 97 07/17/19 09:06 07/17/19 09:06 07/17/19 09:06 07/17/19 09:06 07/17/19 09:06 Oxygen Flow Rate (L/min) 2 Oxygen Delivery Method Room Air Weight: 206 lb 9.17 oz Body Mass Index (BMI) 31.4 Intake and Output for Last 24 Hours 07/15/19 07/16/19 07/17/19 23:59 23:59 23:59 Intake Total 8993.33 / 8993.33 5400 / 5400 1450 / 1450 Output Total 8350 / 8350 1650 / 1650 200 / 200 Balance 643.33 / 643.33 3750 / 3750 1250 / 1250 General: Alert, Oriented x3, Cooperative, No apparent distress HEENT: Atraumatic, PERRLA, EOMI, Normocephalic Oral: Moist Mucosa Neck: Supple, No JVD Lungs: Clear to auscultation, Normal air movement, No rhonchi, No wheeze, No rales Cardiovascular: Regular rate, Regular Rhythm, Normal S1, Normal S2, No murmurs Abdomen: Soft, Non Tender, Non-Distended, No Hepato-splenomegaly Extremities: No edema, Capillary Refill Less than 3 Seconds Skin: No rashes, No breakdown, Incision - CDI Neurological: Neuro grossly intact, Sensory exam intact to light touch and pain Psych/Mental Status: Normal Affect, Appropriate Microbiology Past 72 Hours 07/15/19 03:05 Blood Culture (Wb) - Right Wrist Blood Culture - Preliminary No growth in 48 hours. 07/15/19 03:05 Blood Culture (Wb) - Right Wrist Blood Culture - Preliminary No growth in 48 hours. 07/14/19 23:24 Urine, Clean Catch Urine Culture - Preliminary Culture exhibits no growth. 07/15/19 00:46 Mucosa - Nose Respiratory Panel (PCR) - Final 07/14/19 23:02 Mucosa - Nose Influenza Types A,B Direct FA ([facility]) - Final Laboratory Results 07/17/19 05:05: WBC 5.6, RBC 2.72 L, Hgb 7.7 L, Hct 24.7 L, MCV 90.8, MCH 28.3, MCHC 31.2 L, RDW Std Deviation 51.2 H, RDW Coeff of Diana 15.7 H, Plt Count 232, MPV 9.7, Immature Gran % (Auto) 0.400, Neut % (Auto) 61.7, Lymph % (Auto) 28.9, [place] % (Auto) 6.6, Eos % (Auto) 2.2, Baso % (Auto) 0.2, Absolute Neuts (auto) 3.5, Absolute Lymphs (auto) 1.61, Nucleated RBC % 0 07/17/19 05:05: Sodium 141, Potassium 3.9, Chloride 111 H, Carbon Dioxide 25.0, Anion Gap 5, BUN 9, Creatinine 0.62, Estim Creat Clear Calc 131.41, Est GFR (MDRD) Af Amer 144, Est GFR (MDRD) Non-Af 119, BUN/Creatinine Ratio 14.6, Glucose 87, Calcium 8.0 L, Total Bilirubin 0.30, AST 14 L, ALT 27, Alkaline Phosphatase 93, Total Protein 6.1 L, Albumin 2.3 L, Globulin 3.8, Albumin/Globulin Ratio 0.6 L Current Medications Acetaminophen (Tylenol) 1,000 mg PO Q6H PRN PRN PRN Reason: FEVER Last Admin: 07/17/19 09:15 Dose: 1,000 mg Documented by: Enoxaparin Sodium (Lovenox) 90 mg SC Q12@0600,1800 [facility] Last Admin: 07/17/19 06:37 Dose: 90 mg Documented by: Ferrous Sulfate (Ferrous Sulfate) 325 mg PO BIDCM [facility] Last Admin: 07/17/19 09:15 Dose: 325 mg Documented by: Hydralazine HCl (Apresoline Iv) 10 mg IV Q4H PRN PRN PRN Reason: SBP > 150 Calcium Gluconate 1 gm/ N/A 10 mls @ 2 mls/min IV X1 PRN PRN Reason: Magnesium Toxicity Last Admin: 07/16/19 09:45 Dose: 2 mls/min Documented by: Sodium Chloride () 1,000 mls @ 100 mls/hr IV .Q10H [facility] Last Admin: 07/17/19 04:48 Dose: 100 mls/hr Documented by: Piperacillin Sod/Tazobactam (Sod 3.375 gm/ Sodium Chloride) 50 mls @ 12.5 mls/hr IV Q8 [facility] Last Admin: 07/17/19 06:22 Dose: 12.5 mls/hr Documented by: Ibuprofen (Motrin) 600 mg PO Q6H PRN PRN PRN Reason: Pain 1-10/10 or Fever Last Admin: 07/16/19 18:08 Dose: 600 mg Documented by: Midazolam HCl (Versed) 2 mg IV X1 PRN PRN Reason: Seizure Activity Nifedipine (Procardia Xl) 30 mg PO DAILY [facility] Last Admin: 07/17/19 09:15 Dose: 30 mg Documented by: Ondansetron HCl (Zofran) 4 mg IV Q4H PRN PRN PRN Reason: NAUSEA Multivit/Folic Acid/Iron (Prenatabs Fa) 1 tablet PO DAILY@1200 [facility] Last Admin: 07/16/19 09:37 Dose: 1 tablet Documented by: Prochlorperazine Edisylate (Compazine Iv) 10 mg IV Q6H PRN PRN PRN Reason: NAUSEA Last Admin: 07/15/19 02:06 Dose: 10 mg Documented by: Sodium Chloride () 10 - 40 ml IV UD PRN PRN Reason: SALINE FLUSH Last Admin: 07/15/19 05:31 Dose: 10 ml Documented by: Sodium Chloride ([place] Nasal [place]) 1 spray NASAL DAILY PRN PRN PRN Reason: NASAL DRYNESS STROKE Vital Signs/Narrative: Vital Signs Temp Pulse Resp BP Pulse Ox 07/17/19 09:06 100.4 F H 84 18 131/81 H 97 07/17/19 06:52 88 Medical Necessity - Tobacco Use Smoking Status: Never smoker Tobacco Use: Non-smoker Assessment/Plan All Active Problems Hypertension, condition or complication (Acute) fever (Acute) Preeclampsia (Acute) Fever (Acute) Anemia (Acute) 1. Fever and sepsis likely from septic pelvic thrombophlebitis/postop day 12 from -Per literature review it is possible to have a deep septic pelvic thrombophlebitis up to 3 weeks after -Continue with therapeutic Lovenox and Zosyn -She is currently in isolation secondary to coronavirus testing -Once we have a negative result, she can likely be discharged home with oral antibiotics 2. 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 Normocytic anemia -Hemoglobin dropped down to 7.7 today however her IV fluids have been running at 150 since admission -Was also given several boluses -This is likely hemodilution especially from an admission hemoglobin of 8.5 -IV fluids now at 100 4. Hypocalcemia -Based on albumin correction she is hypocalcemic -She received calcium gluconate yesterday, calcium is now at 8 and based on albumin correction, her calcium is normal DVT: Therapeutic Lovenox Inpatient E&M: 77002 Subs Hosp L2
--- NOTE | 2019-07-17 11:15 | PCM.PN.OB ---
Patient Problems: Active and Suspected Problems Hypertension, condition or complication (Acute) fever (Acute) Preeclampsia (Acute) Fever (Acute) Anemia (Acute) Subjective: Denies fever, chills, respiratory symptoms. She feels well. Headache returned, but it again went away with coffee. No vision changes, abdominal pain. Continues pumping breast milk. Objective: AVSS - Physical Exam Vitals/I&O's: Vital Signs Temp Pulse Resp BP Pulse Ox 100.4 F H 84 18 131/81 H 97 07/17/19 09:06 07/17/19 09:06 07/17/19 09:06 07/17/19 09:06 07/17/19 09:06 Oxygen Flow Rate (L/min) 2 Oxygen Delivery Method Room Air Weight: 93.7 kg Body Mass Index (BMI) 31.4 Intake and Output for Last 24 Hours 07/15/19 07/16/19 07/17/19 23:59 23:59 23:59 Intake Total 8993.33 / 8993.33 5400 / 5400 1979 / 1979 Output Total 8350 / 8350 1650 / 1650 200 / 200 Balance 643.33 / 643.33 3750 / 3750 1780 / 1780 General: Alert, Oriented x3, Cooperative, No apparent distress HEENT: Atraumatic, Normocephalic Lungs: Clear to auscultation, Normal air movement, No rhonchi, No wheeze, No rales Cardiovascular: Regular rate, Regular Rhythm, Normal S1, Normal S2, No murmurs Abdomen: Soft, Non Tender, Non-Distended, - - Incision c/d/i Extremities: No Calf Tenderness, - - +2 b/l LE pitting edema Neurological: Neuro grossly intact Psych/Mental Status: Normal Affect, Appropriate, Alert and oriented to time, place, person, mood and affect Microbiology Past 72 Hours 07/14/19 23:24 Urine, Clean Catch Urine Culture - Final Mixed Gram Positive Organisms 07/15/19 03:05 Blood Culture (Wb) - Right Wrist Blood Culture - Preliminary No growth in 48 hours. 07/15/19 03:05 Blood Culture (Wb) - Right Wrist Blood Culture - Preliminary No growth in 48 hours. 07/15/19 00:46 Mucosa - Nose Respiratory Panel (PCR) - Final 07/14/19 23:02 Mucosa - Nose Influenza Types A,B Direct FA ([facility]) - Final Laboratory Results 07/17/19 05:05: WBC 5.6, RBC 2.72 L, Hgb 7.7 L, Hct 24.7 L, MCV 90.8, MCH 28.3, MCHC 31.2 L, RDW Std Deviation 51.2 H, RDW Coeff of Diana 15.7 H, Plt Count 232, MPV 9.7, Immature Gran % (Auto) 0.400, Neut % (Auto) 61.7, Lymph % (Auto) 28.9, [place] % (Auto) 6.6, Eos % (Auto) 2.2, Baso % (Auto) 0.2, Absolute Neuts (auto) 3.5, Absolute Lymphs (auto) 1.61, Nucleated RBC % 0 07/17/19 05:05: Sodium 141, Potassium 3.9, Chloride 111 H, Carbon Dioxide 25.0, Anion Gap 5, BUN 9, Creatinine 0.62, Estim Creat Clear Calc 131.41, Est GFR (MDRD) Af Amer 144, Est GFR (MDRD) Non-Af 119, BUN/Creatinine Ratio 14.6, Glucose 87, Calcium 8.0 L, Total Bilirubin 0.30, AST 14 L, ALT 27, Alkaline Phosphatase 93, Total Protein 6.1 L, Albumin 2.3 L, Globulin 3.8, Albumin/Globulin Ratio 0.6 L Current Medications Acetaminophen (Tylenol) 1,000 mg PO Q6H PRN PRN PRN Reason: FEVER Last Admin: 07/17/19 09:15 Dose: 1,000 mg Documented by: Enoxaparin Sodium (Lovenox) 90 mg SC Q12@0600,1800 [facility] Last Admin: 07/17/19 06:37 Dose: 90 mg Documented by: Ferrous Sulfate (Ferrous Sulfate) 325 mg PO BIDCM [facility] Last Admin: 07/17/19 09:15 Dose: 325 mg Documented by: Hydralazine HCl (Apresoline Iv) 10 mg IV Q4H PRN PRN PRN Reason: SBP > 150 Calcium Gluconate 1 gm/ N/A 10 mls @ 2 mls/min IV X1 PRN PRN Reason: Magnesium Toxicity Last Admin: 07/16/19 09:45 Dose: 2 mls/min Documented by: Sodium Chloride () 1,000 mls @ 100 mls/hr IV .Q10H [facility] Last Admin: 07/17/19 04:48 Dose: 100 mls/hr Documented by: Piperacillin Sod/Tazobactam (Sod 3.375 gm/ Sodium Chloride) 50 mls @ 12.5 mls/hr IV Q8 [facility] Last Infusion: 07/17/19 10:22 Dose: Infused Documented by: Ibuprofen (Motrin) 600 mg PO Q6H PRN PRN PRN Reason: Pain 1-02/09 or Fever Last Admin: 07/16/19 18:08 Dose: 600 mg Documented by: Midazolam HCl (Versed) 2 mg IV X1 PRN PRN Reason: Seizure Activity Nifedipine (Procardia Xl) 30 mg PO DAILY [facility] Last Admin: 07/17/19 09:15 Dose: 30 mg Documented by: Ondansetron HCl (Zofran) 4 mg IV Q4H PRN PRN PRN Reason: NAUSEA Multivit/Folic Acid/Iron (Prenatabs Fa) 1 tablet PO DAILY@1200 [facility] Last Admin: 07/16/19 09:37 Dose: 1 tablet Documented by: Prochlorperazine Edisylate (Compazine Iv) 10 mg IV Q6H PRN PRN PRN Reason: NAUSEA Last Admin: 07/15/19 02:06 Dose: 10 mg Documented by: Sodium Chloride () 10 - 40 ml IV UD PRN PRN Reason: SALINE FLUSH Last Admin: 07/15/19 05:31 Dose: 10 ml Documented by: Sodium Chloride ([place] Nasal [place]) 1 spray NASAL DAILY PRN PRN PRN Reason: NASAL DRYNESS Medical Necessity - Tobacco Use Smoking Status: Never smoker Tobacco Use: Non-smoker Assessment/Plan All Active Problems Hypertension, condition or complication (Acute) fever (Acute) Preeclampsia (Acute) Fever (Acute) Anemia (Acute) 34yo POD# 13 s/p PLTCS with 1. Fever of unknown origin - suspect septic pelvic thrombophlebitis, temperature curve reduced. -Lactate normal. CXR, CTA Chest, CT A/P negative for acute or infectious pathology. -Influenza and respiratory panel negative -Blood cultures negative, Ucx contaminated - COVID19 test pending -Will continue antibiotics at this time, Lovenox bid for possible septic pelvic thrombophlebitis. 2. hypertension, preeclampsia s/p magnesium -Nifedipine XL 30mg -Hypocalcemia corrected s/p calcium gluconate 3. Anemia -hx hemorrhage with some hemodilution Anticipate d/c tomorrow if remains afebrile with 2 weeks Lovenox. Outpatient antibiotics.
[2019-07-17] MEDS: Prenatal Vits Tablet 1 TABLET PO (13:13)
[2019-07-18] MEDS: 0.9% Normal Saline 1,000 ML 100 ML IV (00:41)
[2019-07-18 02:51] VITALS: PULSE 59
[2019-07-18 03:15] VITALS: BP 142/86; PULSE 68; RESP 16; TEMP 36.9; O2SAT 94
[2019-07-18] MEDS: Enoxaparin 100 MG/ML Syringe 90 MG SC (05:26)
[2019-07-18 06:57] LABS: Absolute Lymphocyte Count 2.05 X10^3/uL (0.83-4.51); Absolute Neutrophil Count 1.9 X10^3/uL (2.0-7.7); Basophil# 0.01 X10^3/uL; Basophil% 0.2 % (0-1); Eosinophil# 0.14 X10^3/uL; Eosinophils% 3.1 % (0-5); Hematocrit 25.9 % (37-47); Hemoglobin 7.9 g/dL (12.0-15.0); Lymphocyte # 2.05 X10^3/ul (4.0); Lymphocyte % 46.1 % (19-41); Mean Corp Hgb Conc 30.5 g/dL (32-36); Mean Corpuscular Volume 88.4 fL (81-99); Mean Platelet Vol. 10.1 fl (6.2-12.0); Monocyte# 0.32 X10^3/uL; Monocyte% 7.2 % (0-10); NRBC Flagged by Analyzer 0 % (0-5); Neutrophil % 42.7 % (47-70); Platelet Count 265 K/mm3 (150-450); RBC Distribution Width CV 15.2 % (11.6-14.6); RBC Distribution Width SD 48.6 fl (35.1-43.9); Red Blood Count 2.93 M/mm3 (4.2-5.4); White Blood Count 4.5 K/mm3 (4.4-11.0)
[2019-07-18 06:58] VITALS: PULSE 67
--- NOTE | 2019-07-18 08:18 | PN.OBGYN_ITS ---
Patient Problems: Active and Suspected Problems Hypertension, condition or complication (Acute) fever (Acute) Preeclampsia (Acute) Fever (Acute) Anemia (Acute) Subjective: Feels well, no complaints. Denies respiratory symptoms, fever, chills, nausea, abdominal pain. Objective: Tm 100.4 approx 0900h 07/17/19, AVSS - Physical Exam Vitals/I&O's: Vital Signs Temp Pulse Resp BP Pulse Ox 98.5 F 67 16 142/86 H 94 07/18/19 03:15 07/18/19 06:58 07/18/19 03:15 07/18/19 03:15 07/18/19 03:15 Oxygen Flow Rate (L/min) 2 Oxygen Delivery Method Room Air Weight: 93.7 kg Body Mass Index (BMI) 31.4 Intake and Output for Last 24 Hours 07/16/19 07/17/19 07/18/19 23:59 23:59 23:59 Intake Total 5400 / 5400 3630 / 3630 1423.33 / 1423.33 Output Total 1650 / 1650 1200 / 1200 500 / 500 Balance 3750 / 3750 2430 / 2430 923.33 / 923.33 General: Alert, Oriented x3, Cooperative, No apparent distress HEENT: Atraumatic, Normocephalic Lungs: Clear to auscultation, Normal air movement Cardiovascular: Regular rate, Regular Rhythm, Normal S1, Normal S2 Abdomen: Soft, Non Tender, Non-Distended, - - Incision healing well without erythema, c/d/i Extremities: - - +1 b/l LE edema Neurological: Neuro grossly intact Psych/Mental Status: Normal Affect, Appropriate, Alert and oriented to time, place, person, mood and affect Microbiology Past 72 Hours 07/14/19 23:24 Urine, Clean Catch Urine Culture - Final Mixed Gram Positive Organisms 07/15/19 03:05 Blood Culture (Wb) - Right Wrist Blood Culture - Preliminary No growth in 48 hours. 07/15/19 03:05 Blood Culture (Wb) - Right Wrist Blood Culture - Preliminary No growth in 48 hours. Laboratory Results 07/15/19 16:50: Miscellaneous Test Cancelled 07/18/19 06:44: WBC 4.5, RBC 2.93 L, Hgb 7.9 L, Hct 25.9 L, MCV 88.4, MCH 27.0, MCHC 30.5 L, RDW Std Deviation 48.6 H, RDW Coeff of Diana 15.2 H, Plt Count 265, MPV 10.1, Immature Gran % (Auto) 0.700, Neut % (Auto) 42.7 L, Lymph % (Auto) 46.1 H, [place] % (Auto) 7.2, Eos % (Auto) 3.1, Baso % (Auto) 0.2, Absolute Neuts (auto) 1.9 L, Absolute Lymphs (auto) 2.05, Nucleated RBC % 0 Current Medications Acetaminophen (Tylenol) 1,000 mg PO Q6H PRN PRN PRN Reason: FEVER Last Admin: 07/17/19 09:15 Dose: 1,000 mg Documented by: Enoxaparin Sodium (Lovenox) 90 mg SC Q12@0600,1800 [facility] Last Admin: 07/18/19 05:26 Dose: 90 mg Documented by: Ferrous Sulfate (Ferrous Sulfate) 325 mg PO BIDCM [facility] Last Admin: 07/17/19 17:13 Dose: 325 mg Documented by: Hydralazine HCl (Apresoline Iv) 10 mg IV Q4H PRN PRN PRN Reason: SBP > 150 Calcium Gluconate 1 gm/ N/A 10 mls @ 2 mls/min IV X1 PRN PRN Reason: Magnesium Toxicity Last Admin: 07/16/19 09:45 Dose: 2 mls/min Documented by: Sodium Chloride () 1,000 mls @ 100 mls/hr IV .Q10H [facility] Last Admin: 07/18/19 00:41 Dose: 100 mls/hr Documented by: Piperacillin Sod/Tazobactam (Sod 3.375 gm/ Sodium Chloride) 50 mls @ 12.5 mls/hr IV Q8 [facility] Last Admin: 07/18/19 05:23 Dose: 12.5 mls/hr Documented by: Ibuprofen (Motrin) 600 mg PO Q6H PRN PRN PRN Reason: Pain 1-10/10 or Fever Last Admin: 07/16/19 18:08 Dose: 600 mg Documented by: Midazolam HCl (Versed) 2 mg IV X1 PRN PRN Reason: Seizure Activity Nifedipine (Procardia Xl) 30 mg PO DAILY [facility] Last Admin: 07/17/19 09:15 Dose: 30 mg Documented by: Ondansetron HCl (Zofran) 4 mg IV Q4H PRN PRN PRN Reason: NAUSEA Multivit/Folic Acid/Iron (Prenatabs Fa) 1 tablet PO DAILY@1200 [facility] Last Admin: 07/17/19 13:13 Dose: 1 tablet Documented by: Prochlorperazine Edisylate (Compazine Iv) 10 mg IV Q6H PRN PRN PRN Reason: NAUSEA Last Admin: 07/15/19 02:06 Dose: 10 mg Documented by: Sodium Chloride () 10 - 40 ml IV UD PRN PRN Reason: SALINE FLUSH Last Admin: 07/15/19 05:31 Dose: 10 ml Documented by: Sodium Chloride ([place] Nasal [place]) 1 spray NASAL DAILY PRN PRN PRN Reason: NASAL DRYNESS Medical Necessity - Tobacco Use Smoking Status: Never smoker Tobacco Use: Non-smoker Assessment/Plan All Active Problems Hypertension, condition or complication (Acute) fever (Acute) Preeclampsia (Acute) Fever (Acute) Anemia (Acute) 34yo POD# 14 s/p PLTCS with 1. Fever of unknown origin - suspect septic pelvic thrombophlebitis, temperature curve reduced on Lovenox, antibiotics -Lactate normal. CXR, CTA Chest, CT A/P negative for acute or infectious pathology. -Influenza and respiratory panel negative, COVID19 test canceled -Blood cultures negative, Ucx contaminated -Will dc IV antibiotics -Plan for d/c home with treatment dose Lovenox x 2 weeks. 2. hypertension, preeclampsia s/p magnesium -Nifedipine XL 30mg -Hypocalcemia corrected s/p calcium gluconate 3. Anemia -Continue iron supplementation PO
--- NOTE | 2019-07-18 08:23 | DCINST_ITS ---
- Discharge Diagnoses Current Active Problems: Current Active and Chronic Problems Hypertension, condition or complication (Acute) fever (Acute) Preeclampsia (Acute) Fever (Acute) Anemia (Acute) Reason(s) for Visit for Discharge Instructions: Post-op Fever. preeclampsia You will use the following diet at home:: No restrictions Your food should be the consistency of: Regular Discharge Activity: Return to Normal Activity, May Drive, May not drive while taking narcotic pain medications., May Shower, May Take a Tub Bath May resume sexual activity in: 4 weeks Lifting Restrictions: 10-20 lb Call your doctor if you observe: Fever of 101 or Higher, Change in Color, Inability to urinate, Inability to have a bowel movement, Using more than one pad per hour, Shortness of breath, Chest pain, Calf discomfort, Uncontrolled pain Suture Line Care: Avoid Pulling/Pushing Cleanse incision/area with: Soap & Water Instructions: What Is High Blood Pressure? (JNC-7) Allergies/Adverse Reactions: Allergies bee venom protein (honey bee) Allergy (Verified 07/14/19 22:40) Anaphylaxis Medications to take at Discharge Ibuprofen [Motrin] 600 mg PO Q8H PRN PRN #30 tab 07/06/19 Elderberry Fruit and Flower [Black Elderberry 575 mg Cap] 1 ea PO DAILY 07/15/19 Ferrous Sulfate [Iron] 325 mg PO BID 07/15/19 Enoxaparin [Lovenox] 90 mg SUBCUT Q12@0600,1800 #28 syringe 07/18/19 Nifedipine [Nifedipine ER] 30 mg PO DAILY #60 tab.er.24 07/18/19 Vits [Prenatabs FA ] 1 tablet PO DAILY@1200 tablet 07/18/19 The following prescriptions were given: Enoxaparin [Lovenox] 90 mg SUBCUT Q12@0600,1800 #28 syringe Transmission Status: Pending to [facility] EHRNANDEZ NAVID ALVAREZ Nifedipine [Nifedipine ER] 30 mg PO DAILY #60 tab.er.24 Transmission Status: Pending to [facility] HERNANDEZ NAVID ALVAREZ Primary Care Physician: Edna Pereyra MD [Primary Care Provider] - Test Results: Test results from this visit will be discussed in further detail at your follow- up appointment, if applicable. Please Follow Up With: Montgomery,Alina, CNM - visit in office When: 6 weeks Please Follow Up With: Maria Fernanda Miller MD - by phone When: 1 week
--- NOTE | 2019-07-18 08:27 | PCM.PN.HOSP ---
Patient Problems: Active and Suspected Problems pelvic thrombophlebitis (Acute) Hypertension, condition or complication (Acute) fever (Acute) Preeclampsia (Acute) Fever (Acute) Anemia (Acute) Subjective: Doing well, feels better. Vitals/I&O's: Vital Signs Temp Pulse Resp BP Pulse Ox 98.5 F 67 16 142/86 H 94 07/18/19 03:15 07/18/19 06:58 07/18/19 03:15 07/18/19 03:15 07/18/19 03:15 Oxygen Flow Rate (L/min) 2 Oxygen Delivery Method Room Air Weight: 206 lb 9.17 oz Body Mass Index (BMI) 31.4 Intake and Output for Last 24 Hours 07/16/19 07/17/19 07/18/19 23:59 23:59 23:59 Intake Total 5400 / 5400 3630 / 3630 1423.33 / 1423.33 Output Total 1650 / 1650 1200 / 1200 500 / 500 Balance 3750 / 3750 2430 / 2430 923.33 / 923.33 General: Alert, Oriented x3, Cooperative, No apparent distress HEENT: Atraumatic, PERRLA, EOMI, Normocephalic Oral: Moist Mucosa Neck: Supple, No JVD Lungs: Clear to auscultation, Normal air movement, No rhonchi, No wheeze, No rales Cardiovascular: Regular rate, Regular Rhythm, Normal S1, Normal S2, No murmurs Abdomen: Soft, Non Tender, Non-Distended, No Hepato-splenomegaly Extremities: No edema, Capillary Refill Less than 3 Seconds Skin: No rashes, No breakdown, Incision - CDI Neurological: Neuro grossly intact, Sensory exam intact to light touch and pain Psych/Mental Status: Normal Affect, Appropriate Microbiology Past 72 Hours 07/14/19 23:24 Urine, Clean Catch Urine Culture - Final Mixed Gram Positive Organisms 07/15/19 03:05 Blood Culture (Wb) - Right Wrist Blood Culture - Preliminary No growth in 48 hours. 07/15/19 03:05 Blood Culture (Wb) - Right Wrist Blood Culture - Preliminary No growth in 48 hours. Laboratory Results 07/15/19 16:50: Miscellaneous Test Cancelled 07/18/19 06:44: WBC 4.5, RBC 2.93 L, Hgb 7.9 L, Hct 25.9 L, MCV 88.4, MCH 27.0, MCHC 30.5 L, RDW Std Deviation 48.6 H, RDW Coeff of Diana 15.2 H, Plt Count 265, MPV 10.1, Immature Gran % (Auto) 0.700, Neut % (Auto) 42.7 L, Lymph % (Auto) 46.1 H, [place] % (Auto) 7.2, Eos % (Auto) 3.1, Baso % (Auto) 0.2, Absolute Neuts (auto) 1.9 L, Absolute Lymphs (auto) 2.05, Nucleated RBC % 0 Current Medications Acetaminophen (Tylenol) 1,000 mg PO Q6H PRN PRN PRN Reason: FEVER Last Admin: 07/17/19 09:15 Dose: 1,000 mg Documented by: Enoxaparin Sodium (Lovenox) 90 mg SC Q12@0600,1800 [facility] Last Admin: 07/18/19 05:26 Dose: 90 mg Documented by: Ferrous Sulfate (Ferrous Sulfate) 325 mg PO BIDCM [facility] Last Admin: 07/17/19 17:13 Dose: 325 mg Documented by: Hydralazine HCl (Apresoline Iv) 10 mg IV Q4H PRN PRN PRN Reason: SBP > 150 Calcium Gluconate 1 gm/ N/A 10 mls @ 2 mls/min IV X1 PRN PRN Reason: Magnesium Toxicity Last Admin: 07/16/19 09:45 Dose: 2 mls/min Documented by: Sodium Chloride () 1,000 mls @ 100 mls/hr IV .Q10H [facility] Last Admin: 07/18/19 00:41 Dose: 100 mls/hr Documented by: Piperacillin Sod/Tazobactam (Sod 3.375 gm/ Sodium Chloride) 50 mls @ 12.5 mls/hr IV Q8 [facility] Last Admin: 07/18/19 05:23 Dose: 12.5 mls/hr Documented by: Ibuprofen (Motrin) 600 mg PO Q6H PRN PRN PRN Reason: Pain 1-10/10 or Fever Last Admin: 07/16/19 18:08 Dose: 600 mg Documented by: Midazolam HCl (Versed) 2 mg IV X1 PRN PRN Reason: Seizure Activity Nifedipine (Procardia Xl) 30 mg PO DAILY [facility] Last Admin: 07/17/19 09:15 Dose: 30 mg Documented by: Ondansetron HCl (Zofran) 4 mg IV Q4H PRN PRN PRN Reason: NAUSEA Multivit/Folic Acid/Iron (Prenatabs Fa) 1 tablet PO DAILY@1200 [facility] Last Admin: 07/17/19 13:13 Dose: 1 tablet Documented by: Prochlorperazine Edisylate (Compazine Iv) 10 mg IV Q6H PRN PRN PRN Reason: NAUSEA Last Admin: 07/15/19 02:06 Dose: 10 mg Documented by: Sodium Chloride () 10 - 40 ml IV UD PRN PRN Reason: SALINE FLUSH Last Admin: 07/15/19 05:31 Dose: 10 ml Documented by: Sodium Chloride ([place] Nasal [place]) 1 spray NASAL DAILY PRN PRN PRN Reason: NASAL DRYNESS STROKE Vital Signs/Narrative: Vital Signs Pulse 07/18/19 06:58 67 Medical Necessity - Tobacco Use Smoking Status: Never smoker Tobacco Use: Non-smoker Assessment/Plan All Active Problems pelvic thrombophlebitis (Acute) Hypertension, condition or complication (Acute) fever (Acute) Preeclampsia (Acute) Fever (Acute) Anemia (Acute) 1. Fever and sepsis likely from septic pelvic thrombophlebitis/ 07/21/2019 -Per literature review it is possible to have a deep septic pelvic thrombophlebitis up to 3 weeks after -Continue with therapeutic Lovenox and Zosyn -She is currently in isolation secondary to coronavirus testing -Plan for discharge today on Lovenox only per OB 2. HTN/preeclampsia -She has been on magnesium per [employer] -Continue with nifedipine and hydralazine as needed 3. Normocytic anemia -Hemoglobin dropped down to 7.7 however on day of discharge she is 7.9 -Was also given several boluses -This is likely hemodilution especially from an admission hemoglobin of 8.5 -Discontinue IV fluids 4. Hypocalcemia -Based on albumin correction she is hypocalcemic -She received calcium gluconate yesterday, calcium is now at 8 and based on albumin correction, her calcium is normal DVT: Therapeutic Lovenox Inpatient E&M: [id number] [facility] Hosp L2
[2019-07-18 10:07] VITALS: BP 133/81; PULSE 74; RESP 16; TEMP 36.9; O2SAT 97
[2019-07-18] MEDS: Prenatal Vits Tablet 1 TABLET PO (10:12)
[2019-07-18] MEDS: NIFEdipine 30 MG Tablet PO (10:13)
[2019-07-18] MEDS: Ferrous Sulfate 325 MG Tablet PO (10:13)
--- NOTE | 2019-07-18 10:45 | CASEMGMT ---
Pt to be sent home on Lovenox at discharge and med previously e-scribed to [facility]. Call to [facility] and per tech, pt's co-pay for Lovenox is $35 at this time and with new BP med, pt's total co-pay is $45. Flavia, pharmacist, is aware and is heading into room to speak with pt at this time and states will update pt at this time. Pt is ready for discharge. Artis VALENZUELA CM
--- NOTE | 2019-07-18 10:45 | PHA.DC.MC ---
Pharmacy Service has performed discharge medication reconciliation and counseling for this patient. 1. ENOXAPARIN 90MG SC Q12H X 14 DAYS 2. NIFEDIPINE ER 30MG PO DAILY The patient's discharge medication list was reviewed for discrepancies and discrepancies were resolved. Home Medications Ibuprofen [Motrin] 600 mg PO Q8H PRN PRN #30 tab 07/06/19 Elderberry Fruit and Flower [Black Elderberry 575 mg Cap] 1 ea PO DAILY 07/15/19 Ferrous Sulfate [Iron] 325 mg PO BID 07/15/19 Enoxaparin [Lovenox] 90 mg SUBCUT Q12@0600,1800 #28 syringe 07/18/19 Nifedipine [Nifedipine ER] 30 mg PO DAILY #60 tab.er.24 07/18/19 Vits [Prenatabs FA ] 1 tab PO DAILY@1200 tab 07/18/19 The patient was counseled on the following discharge medications and changes in medications for homegoing were reviewed. The Reason for Use, instructions for use, and potential side effects were reviewed for all new medications. The patient's questions regarding all of their medications were answered. The patient was able to verbally demonstrate an understanding of their discharge medications.
--- NOTE | 2019-07-18 10:50 | CASEMGMT ---
Readmission chart review: Pt was admitted 07/02-07/06/2019 for primary on . Pt returned to [facility] on 07/14/19 for cough, fever, PICKARD, and leg swelling. Pt was hypertensive with 101.8 fever and 100%ra. Pt admitted for htn/fever by Dr. Miller w/ consult to hospitalist. Pt with no concerns at discharge and has been up in hallway walking. SStaten NICOLAS CM
[2019-07-18 11:33] VITALS: TEMP 36.9
--- NOTE | 2019-07-18 11:56 | NURSING ---
Lovenox injection teaching completed with patient's who will be administering medication for patient at home.
--- NOTE | 2019-07-25 20:21 | DS.PCM_ITS ---
Discharge Date and Diagnosis Date of Admission: 07/14/19 Date of Discharge: 07/18/19 Hospital Course and Treatment Imaging Results: Diagnostic Data Chest X-Ray 07/14/19 23:50 IMPRESSION: Negative x-ray examination of the chest. Electronically Signed: Clyde Caballero, at 0:05 EDT Tel , Service support , Abdomen/Pelvis CT 07/15/19 09:48 IMPRESSION: 1. No focal fluid collection or bowel obstruction. 2. Recent , post gravid uterus 3. Bibasilar parenchymal opacities with small effusions, atelectasis versus airspace disease. Electronically Signed: Júnior Kaplan MD ([facility]) at 13:44 EDT , Service support , Chest CTA 07/15/19 11:16 IMPRESSION: 1. Limited due to IV contrast bolus and respiratory motion. No obvious central or segmental pulmonary embolism. If there is high index of suspicion for pulmonary embolism, recommend repeat CTA chest or VQ scan. 2. Probable atelectasis of the bilateral lower lobes. Trace volume effusions. Electronically Signed: Laboratory Tests 07/18/19 07/17/19 07/17/19 Range/Units 06:44 05:05 05:05 WBC 4.5 5.6 (4.4-11.0) K/mm3 RBC 2.93 L 2.72 L (4.2-5.4) M/mm3 Hgb 7.9 L 7.7 L (12.0-15.0) g/dL Hct 25.9 L 24.7 L (37-47) % MCV 88.4 90.8 (81-99) fL MCH 27.0 28.3 (27.0-32.0) pg MCHC 30.5 L 31.2 L (32-36) g/dL RDW Std Deviation 48.6 H 51.2 H (35.1-43.9) fl RDW Coeff of Diana 15.2 H 15.7 H (11.6-14.6) % Plt Count 265 232 (150-450) K/mm3 MPV 10.1 9.7 (6.2-12.0) fl Immature Gran % (Auto) 0.700 0.400 (0.0-0.9) % Neut % (Auto) 42.7 L 61.7 (47-70) % Lymph % (Auto) 46.1 H 28.9 (19-41) % Hawkins % (Auto) 7.2 6.6 (0-10) % Eos % (Auto) 3.1 2.2 (0-5) % Baso % (Auto) 0.2 0.2 (0-1) % Absolute Neuts (auto) 1.9 L 3.5 (2.0-7.7) X10^3/uL Absolute Lymphs (auto) 2.05 1.61 (0.83-4.51) X10^3/uL Nucleated RBC % 0 0 (0-5) % Platelet Estimate (ADEQ) Polychromasia Hypochromasia Anisocytosis PT (11.7-14.9) SECONDS INR APTT (24.1-36.2) Seconds Sodium 141 (136-145) mmol/L Potassium 3.9 (3.5-5.1) mmol/L Chloride 111 H (98-107) mmol/L Carbon Dioxide 25.0 (21.0-32.0) mmol/L Anion Gap 5 (5-15) BUN 9 (7-18) mg/dL Creatinine 0.62 (0.55-1.02) mg/dL Estim Creat Clear Calc 131.41 ml/min Est GFR (MDRD) Af Amer 144 (>60) mL/min Est GFR (MDRD) Non-Af 119 (>60) mL/min BUN/Creatinine Ratio 14.6 (10-20) RATIO Glucose 87 (74-106) mg/dL Lactic Acid (0.4-1.9) mmol/L Uric Acid (2.6-6.0) mg/dL Calcium 8.0 L (8.5-10.1) mg/dL Total Bilirubin 0.30 (0.20-1.00) mg/dL AST 14 L (15-37) U/L ALT 27 (13-56) U/L Alkaline Phosphatase 93 (45-117) U/L Total Protein 6.1 L (6.4-8.2) g/dL Albumin 2.3 L (3.2-5.0) g/dL Globulin 3.8 (2.2-4.2) g/dL Albumin/Globulin Ratio 0.6 L (0.9-2.4) RATIO Urine Color (Yellow) Urine Clarity (Clear) Urine pH (5.0 - 8.0) Ur Specific Gloster (1.002-1.030) Urine Protein (Negative) mg/dl Urine Glucose (UA) (Normal) mg/dl Urine Ketones (Negative) mg/dl Urine Occult Blood (Negative) /ul Urine Nitrite (Negative) Urine Bilirubin (Negative) mg/dL Urine Urobilinogen (Normal) mg/dl Ur Leukocyte Esterase (Negative) /ul Urine RBC (0-5) /hpf Urine WBC (0-5) /hpf Ur Squamous Epith Cells (5-10) /hpf Urine Bacteria (None Seen) /hpf Urine Mucus (<or=2+) /hpf U Random Total Protein (<11.9) mg/dL Urine Creatinine (NO RANGE EST.) mg/dL Protein/Creatinin Ratio (0-200) mg/g CRE Miscellaneous Test 07/16/19 07/16/19 07/15/19 Range/Units 05:11 05:11 16:50 WBC 9.3 (4.4-11.0) K/mm3 RBC 2.75 L (4.2-5.4) M/mm3 Hgb 7.7 L (12.0-15.0) g/dL Hct 24.6 L (37-47) % MCV 89.5 (81-99) fL MCH 28.0 (27.0-32.0) pg MCHC 31.3 L (32-36) g/dL RDW Std Deviation 53.7 H (35.1-43.9) fl RDW Coeff of Diana 16.5 H (11.6-14.6) % Plt Count 261 (150-450) K/mm3 MPV 9.9 (6.2-12.0) fl Immature Gran % (Auto) 0.300 (0.0-0.9) % Neut % (Auto) 86.5 H (47-70) % Lymph % (Auto) 10.2 L (19-41) % Hawkins % (Auto) 2.9 (0-10) % Eos % (Auto) 0.0 (0-5) % Baso % (Auto) 0.1 (0-1) % Absolute Neuts (auto) 8.0 H (2.0-7.7) X10^3/uL Absolute Lymphs (auto) 0.95 (0.83-4.51) X10^3/uL Nucleated RBC % 0 (0-5) % Platelet Estimate ADEQUATE (ADEQ) Polychromasia RARE Hypochromasia 2+ Anisocytosis 1+ PT (11.7-14.9) SECONDS INR APTT (24.1-36.2) Seconds Sodium 139 (136-145) mmol/L Potassium 3.5 (3.5-5.1) mmol/L Chloride 109 H (98-107) mmol/L Carbon Dioxide 24.0 (21.0-32.0) mmol/L Anion Gap 6 (5-15) BUN 5 L (7-18) mg/dL Creatinine 0.57 (0.55-1.02) mg/dL Estim Creat Clear Calc 142.93 ml/min Est GFR (MDRD) Af Amer 157 (>60) mL/min Est GFR (MDRD) Non-Af 130 (>60) mL/min BUN/Creatinine Ratio 8.7 L (10-20) RATIO Glucose 103 (74-106) mg/dL Lactic Acid (0.4-1.9) mmol/L Uric Acid (2.6-6.0) mg/dL Calcium 6.5 L* (8.5-10.1) mg/dL Total Bilirubin 0.50 (0.20-1.00) mg/dL AST 17 (15-37) U/L ALT 27 (13-56) U/L Alkaline Phosphatase 89 (45-117) U/L Total Protein 6.3 L (6.4-8.2) g/dL Albumin 2.5 L (3.2-5.0) g/dL Globulin 3.8 (2.2-4.2) g/dL Albumin/Globulin Ratio 0.7 L (0.9-2.4) RATIO Urine Color (Yellow) Urine Clarity (Clear) Urine pH (5.0 - 8.0) Ur Specific [place] (1.002-1.030) Urine Protein (Negative) mg/dl Urine Glucose (UA) (Normal) mg/dl Urine Ketones (Negative) mg/dl Urine Occult Blood (Negative) /ul Urine Nitrite (Negative) Urine Bilirubin (Negative) mg/dL Urine Urobilinogen (Normal) mg/dl Ur Leukocyte Esterase (Negative) /ul Urine RBC (0-5) /hpf Urine WBC (0-5) /hpf Ur Squamous Epith Cells (5-10) /hpf Urine Bacteria (None Seen) /hpf Urine Mucus (<or=2+) /hpf U Random Total Protein (<11.9) mg/dL Urine Creatinine (NO RANGE EST.) mg/dL Protein/Creatinin Ratio (0-200) mg/g CRE Miscellaneous Test Cancelled 07/15/19 07/15/19 07/15/19 Range/Units 06:15 06:15 03:20 WBC 11.9 H 12.0 H (4.4-11.0) K/mm3 RBC 2.97 L 3.07 L (4.2-5.4) M/mm3 Hgb 8.3 L 8.6 L (12.0-15.0) g/dL Hct 26.6 L 27.3 L (37-47) % MCV 89.6 88.9 (81-99) fL MCH 27.9 28.0 (27.0-32.0) pg MCHC 31.2 L 31.5 L (32-36) g/dL RDW Std Deviation 49.5 H 48.0 H (35.1-43.9) fl RDW Coeff of Diana 15.9 H 15.8 H (11.6-14.6) % Plt Count 323 344 (150-450) K/mm3 MPV 10.0 9.9 (6.2-12.0) fl Immature Gran % (Auto) 0.700 0.600 (0.0-0.9) % Neut % (Auto) 87.1 H 84.2 H (47-70) % Lymph % (Auto) 7.8 L 9.6 L (19-41) % Hawkins % (Auto) 4.2 5.3 (0-10) % Eos % (Auto) 0.1 0.1 (0-5) % Baso % (Auto) 0.1 0.2 (0-1) % Absolute Neuts (auto) 10.4 H 10.2 H (2.0-7.7) X10^3/uL Absolute Lymphs (auto) 0.93 1.15 (0.83-4.51) X10^3/uL Nucleated RBC % 0 0 (0-5) % Platelet Estimate (ADEQ) Polychromasia Hypochromasia Anisocytosis PT (11.7-14.9) SECONDS INR APTT (24.1-36.2) Seconds Sodium 141 (136-145) mmol/L Potassium 3.3 L (3.5-5.1) mmol/L Chloride 110 H (98-107) mmol/L Carbon Dioxide 23.0 (21.0-32.0) mmol/L Anion Gap 8 (5-15) BUN 7 (7-18) mg/dL Creatinine 0.65 (0.55-1.02) mg/dL Estim Creat Clear Calc 125.34 ml/min Est GFR (MDRD) Af Amer 135 (>60) mL/min Est GFR (MDRD) Non-Af 111 (>60) mL/min BUN/Creatinine Ratio 10.7 (10-20) RATIO Glucose 105 (74-106) mg/dL Lactic Acid (0.4-1.9) mmol/L Uric Acid (2.6-6.0) mg/dL Calcium 7.4 L (8.5-10.1) mg/dL Total Bilirubin 0.50 (0.20-1.00) mg/dL AST 13 L (15-37) U/L ALT 22 (13-56) U/L Alkaline Phosphatase 94 (45-117) U/L Total Protein 6.7 (6.4-8.2) g/dL Albumin 2.8 L (3.2-5.0) g/dL Globulin 3.9 (2.2-4.2) g/dL Albumin/Globulin Ratio 0.7 L (0.9-2.4) RATIO Urine Color (Yellow) Urine Clarity (Clear) Urine pH (5.0 - 8.0) Ur Specific [place] (1.002-1.030) Urine Protein (Negative) mg/dl Urine Glucose (UA) (Normal) mg/dl Urine Ketones (Negative) mg/dl Urine Occult Blood (Negative) /ul Urine Nitrite (Negative) Urine Bilirubin (Negative) mg/dL Urine Urobilinogen (Normal) mg/dl Ur Leukocyte Esterase (Negative) /ul Urine RBC (0-5) /hpf Urine WBC (0-5) /hpf Ur Squamous Epith Cells (5-10) /hpf Urine Bacteria (None Seen) /hpf Urine Mucus (<or=2+) /hpf U Random Total Protein (<11.9) mg/dL Urine Creatinine (NO RANGE EST.) mg/dL Protein/Creatinin Ratio (0-200) mg/g CRE Miscellaneous Test 07/15/19 07/15/19 07/14/19 Range/Units 03:20 03:05 23:41 WBC (4.4-11.0) K/mm3 RBC (4.2-5.4) M/mm3 Hgb (12.0-15.0) g/dL Hct (37-47) % MCV (81-99) fL MCH (27.0-32.0) pg MCHC (32-36) g/dL RDW Std Deviation (35.1-43.9) fl RDW Coeff of Diana (11.6-14.6) % Plt Count (150-450) K/mm3 MPV (6.2-12.0) fl Immature Gran % (Auto) (0.0-0.9) % Neut % (Auto) (47-70) % Lymph % (Auto) (19-41) % Hawkins % (Auto) (0-10) % Eos % (Auto) (0-5) % Baso % (Auto) (0-1) % Absolute Neuts (auto) (2.0-7.7) X10^3/uL Absolute Lymphs (auto) (0.83-4.51) X10^3/uL Nucleated RBC % (0-5) % Platelet Estimate (ADEQ) Polychromasia Hypochromasia Anisocytosis PT (11.7-14.9) SECONDS INR APTT (24.1-36.2) Seconds Sodium 141 (136-145) mmol/L Potassium 3.7 (3.5-5.1) mmol/L Chloride 107 (98-107) mmol/L Carbon Dioxide 25.0 (21.0-32.0) mmol/L Anion Gap 9 (5-15) BUN 8 (7-18) mg/dL Creatinine 0.74 0.73 (0.55-1.02) mg/dL Estim Creat Clear Calc 110.10 111.61 ml/min Est GFR (MDRD) Af Amer 117 119 (>60) mL/min Est GFR (MDRD) Non-Af 97 98 (>60) mL/min BUN/Creatinine Ratio 10.8 (10-20) RATIO Glucose 101 (74-106) mg/dL Lactic Acid 1.2 (0.4-1.9) mmol/L Uric Acid 4.2 (2.6-6.0) mg/dL Calcium 7.9 L (8.5-10.1) mg/dL Total Bilirubin 0.40 (0.20-1.00) mg/dL AST 13 L 13 L (15-37) U/L ALT 24 25 (13-56) U/L Alkaline Phosphatase 101 (45-117) U/L Total Protein 7.1 (6.4-8.2) g/dL Albumin 3.0 L (3.2-5.0) g/dL Globulin 4.1 (2.2-4.2) g/dL Albumin/Globulin Ratio 0.7 L (0.9-2.4) RATIO Urine Color (Yellow) Urine Clarity (Clear) Urine pH (5.0 - 8.0) Ur Specific [place] (1.002-1.030) Urine Protein (Negative) mg/dl Urine Glucose (UA) (Normal) mg/dl Urine Ketones (Negative) mg/dl Urine Occult Blood (Negative) /ul Urine Nitrite (Negative) Urine Bilirubin (Negative) mg/dL Urine Urobilinogen (Normal) mg/dl Ur Leukocyte Esterase (Negative) /ul Urine RBC (0-5) /hpf Urine WBC (0-5) /hpf Ur Squamous Epith Cells (5-10) /hpf Urine Bacteria (None Seen) /hpf Urine Mucus (<or=2+) /hpf U Random Total Protein (<11.9) mg/dL Urine Creatinine (NO RANGE EST.) mg/dL Protein/Creatinin Ratio (0-200) mg/g CRE Miscellaneous Test 07/14/19 07/14/19 07/14/19 Range/Units 23:41 23:41 23:24 WBC 10.1 (4.4-11.0) K/mm3 RBC 2.99 L (4.2-5.4) M/mm3 Hgb 8.5 L (12.0-15.0) g/dL Hct 26.5 L (37-47) % MCV 88.6 (81-99) fL MCH 28.4 (27.0-32.0) pg MCHC 32.1 (32-36) g/dL RDW Std Deviation 46.5 H (35.1-43.9) fl RDW Coeff of Diana 15.4 H (11.6-14.6) % Plt Count 322 (150-450) K/mm3 MPV 9.9 (6.2-12.0) fl Immature Gran % (Auto) (0.0-0.9) % Neut % (Auto) (47-70) % Lymph % (Auto) (19-41) % Hawkins % (Auto) (0-10) % Eos % (Auto) (0-5) % Baso % (Auto) (0-1) % Absolute Neuts (auto) (2.0-7.7) X10^3/uL Absolute Lymphs (auto) (0.83-4.51) X10^3/uL Nucleated RBC % (0-5) % Platelet Estimate (ADEQ) Polychromasia Hypochromasia Anisocytosis PT 13.3 (11.7-14.9) SECONDS INR 1.0 APTT 28.2 (24.1-36.2) Seconds Sodium (136-145) mmol/L Potassium (3.5-5.1) mmol/L Chloride (98-107) mmol/L Carbon Dioxide (21.0-32.0) mmol/L Anion Gap (5-15) BUN (7-18) mg/dL Creatinine (0.55-1.02) mg/dL Estim Creat Clear Calc ml/min Est GFR (MDRD) Af Amer (>60) mL/min Est GFR (MDRD) Non-Af (>60) mL/min BUN/Creatinine Ratio (10-20) RATIO Glucose (74-106) mg/dL Lactic Acid (0.4-1.9) mmol/L Uric Acid (2.6-6.0) mg/dL Calcium (8.5-10.1) mg/dL Total Bilirubin (0.20-1.00) mg/dL AST (15-37) U/L ALT (13-56) U/L Alkaline Phosphatase (45-117) U/L Total Protein (6.4-8.2) g/dL Albumin (3.2-5.0) g/dL Globulin (2.2-4.2) g/dL Albumin/Globulin Ratio (0.9-2.4) RATIO Urine Color Straw (Yellow) Urine Clarity Clear (Clear) Urine pH 6.0 (5.0 - 8.0) Ur Specific [place] 1.015 (1.002-1.030) Urine Protein 15 H (Negative) mg/dl Urine Glucose (UA) Normal (Normal) mg/dl Urine Ketones Negative (Negative) mg/dl Urine Occult Blood Negative (Negative) /ul Urine Nitrite Negative (Negative) Urine Bilirubin Negative (Negative) mg/dL Urine Urobilinogen Normal (Normal) mg/dl Ur Leukocyte Esterase Negative (Negative) /ul Urine RBC 0 SEEN (0-5) /hpf Urine WBC 0-5 SEEN (0-5) /hpf Ur Squamous Epith Cells 0-5 SEEN (5-10) /hpf Urine Bacteria 0 SEEN (None Seen) /hpf Urine Mucus 0 SEEN (<or=2+) /hpf U Random Total Protein (<11.9) mg/dL Urine Creatinine (NO RANGE EST.) mg/dL Protein/Creatinin Ratio (0-200) mg/g CRE Miscellaneous Test 07/14/19 Range/Units 23:24 WBC (4.4-11.0) K/mm3 RBC (4.2-5.4) M/mm3 Hgb (12.0-15.0) g/dL Hct (37-47) % MCV (81-99) fL MCH (27.0-32.0) pg MCHC (32-36) g/dL RDW Std Deviation (35.1-43.9) fl RDW Coeff of Diana (11.6-14.6) % Plt Count (150-450) K/mm3 MPV (6.2-12.0) fl Immature Gran % (Auto) (0.0-0.9) % Neut % (Auto) (47-70) % Lymph % (Auto) (19-41) % Hawkins % (Auto) (0-10) % Eos % (Auto) (0-5) % Baso % (Auto) (0-1) % Absolute Neuts (auto) (2.0-7.7) X10^3/uL Absolute Lymphs (auto) (0.83-4.51) X10^3/uL Nucleated RBC % (0-5) % Platelet Estimate (ADEQ) Polychromasia Hypochromasia Anisocytosis PT (11.7-14.9) SECONDS INR APTT (24.1-36.2) Seconds Sodium (136-145) mmol/L Potassium (3.5-5.1) mmol/L Chloride (98-107) mmol/L Carbon Dioxide (21.0-32.0) mmol/L Anion Gap (5-15) BUN (7-18) mg/dL Creatinine (0.55-1.02) mg/dL Estim Creat Clear Calc ml/min Est GFR (MDRD) Af Amer (>60) mL/min Est GFR (MDRD) Non-Af (>60) mL/min BUN/Creatinine Ratio (10-20) RATIO Glucose (74-106) mg/dL Lactic Acid (0.4-1.9) mmol/L Uric Acid (2.6-6.0) mg/dL Calcium (8.5-10.1) mg/dL Total Bilirubin (0.20-1.00) mg/dL AST (15-37) U/L ALT (13-56) U/L Alkaline Phosphatase (45-117) U/L Total Protein (6.4-8.2) g/dL Albumin (3.2-5.0) g/dL Globulin (2.2-4.2) g/dL Albumin/Globulin Ratio (0.9-2.4) RATIO Urine Color (Yellow) Urine Clarity (Clear) Urine pH (5.0 - 8.0) Ur Specific [place] (1.002-1.030) Urine Protein (Negative) mg/dl Urine Glucose (UA) (Normal) mg/dl Urine Ketones (Negative) mg/dl Urine Occult Blood (Negative) /ul Urine Nitrite (Negative) Urine Bilirubin (Negative) mg/dL Urine Urobilinogen (Normal) mg/dl Ur Leukocyte Esterase (Negative) /ul Urine RBC (0-5) /hpf Urine WBC (0-5) /hpf Ur Squamous Epith Cells (5-10) /hpf Urine Bacteria (None Seen) /hpf Urine Mucus (<or=2+) /hpf U Random Total Protein 30.2 H (<11.9) mg/dL Urine Creatinine 58.60 (NO RANGE EST.) mg/dL Protein/Creatinin Ratio 515 H (0-200) mg/g CRE Miscellaneous Test Júnior Kaplan MD ([facility]) at 13:57 EDT , Service support , Operations: appendectomy Procedures: None Summary of Care Provided: The patient is a 34 year old F 4 para 3013 admitted on POD#10 s/p primary section for fever of unknown origin with SIRS. Flu swab was negative. Hospitalist consultation was obtained and she was started on empiric antibiotics. She continued to spike with high grade fever. CXR , CT Chest/A/P was negative for acute or infectious pathology. She was started on Lovenox for presumed septic pelvic thrombophlebitis and fever curve came down. She was discharged to home on POD#14 after more than 24 hours afebrile with treatment dose Lovenox. Cultures remained negative. - Physical Exam Vitals/I&O's: Vital Signs Temp Pulse Resp BP Pulse Ox 98.4 F 74 16 133/81 H 97 07/18/19 11:33 07/18/19 10:07 07/18/19 10:07 07/18/19 10:07 07/18/19 10:07 Oxygen Flow Rate (L/min) 2 Oxygen Delivery Method Room Air Weight: 93.7 kg Body Mass Index (BMI) 31.4 Discharge Activity: Return to Normal Activity, May Drive, May not drive while taking narcotic pain medications., May Shower, May Take a Tub Bath May resume sexual activity in: 4 weeks Call your doctor if you observe: Fever of 101 or Higher, Change in Color, Inability to urinate, Inability to have a bowel movement, Using more than one pad per hour, Shortness of breath, Chest pain, Calf discomfort, Uncontrolled pain Suture Line Care: Avoid Pulling/Pushing Cleanse incision/area with: Soap & Water Home Medications: Medications to take at Discharge Ibuprofen [Motrin] 600 mg PO Q8H PRN PRN #30 tab 07/06/19 Elderberry Fruit and Flower [Black Elderberry 575 mg Cap] 1 ea PO DAILY 07/15/19 Ferrous Sulfate [Iron] 325 mg PO BID 07/15/19 Enoxaparin [Lovenox] 90 mg SUBCUT Q12@0600,1800 #28 syringe 07/18/19 Nifedipine [Nifedipine ER] 30 mg PO DAILY #60 tab.er.24 07/18/19 Vits [Prenatabs FA ] 1 tab PO DAILY@1200 tab 07/18/19 Following Prescrptions Were Given to Patient: Enoxaparin [Lovenox] 90 mg SUBCUT Q12@0600,1800 #28 syringe Transmission Status: Received by [facility] Nifedipine [Nifedipine ER] 30 mg PO DAILY #60 tab.er.24 Transmission Status: Received by [facility] Primary Care Physician: Edna Pereyra MD [Primary Care Provider] - Please Follow Up With: Alina Montgomery CNM - visit in office When: 6 weeks Please Follow Up With: Maria Fernanda Miller MD - by phone When: 1 week Patient Instructions: What Is High Blood Pressure? ([id number]) Medical Necessity - Tobacco Use Smoking Status: Never smoker Tobacco Use: Non-smoker Meaningful Use Info Meaningful Use Diagnoses (Choose all that apply): None applicable
== END 2019-07-18 12:00 | disposition home or self-care (01) | DRG 776 ==
LOC: ED 22:58 → PCU 07-15 01:10
PROVIDERS: Family Medicine; Admitting Provider Obstetrics & Gynecology; Emergency Provider Emergency Medicine; PCP Internal Medicine; Visit Provider Obstetrics & Gynecology
DX: O86.81 Puerperal septic thrombophlebitis (principal); D62 Acute posthemorrhagic anemia; O99.03 Anemia complicating the puerperium; O14.95 Unspecified pre-eclampsia, complicating the puerperium; O99.285 Endocrine, nutritional and metabolic diseases complicating the puerperium; E83.51 Hypocalcemia; Z3A.38 38 weeks gestation of pregnancy
CPT/HCPCS: 36415; 71046; 71275; 74177; 80053; 81001; 82565; 82570; 83605; 84156; 84450; 84460; 84550; 85025; 85027; 85610; 85730; 87040; 87086; 87088; 87633; 87804; 99251; 99285; J7030; J7120; Q9967; A4216; G0463; J0610

== ENCOUNTER 2019-08-12 13:07 | Emergency (ER) | payer OTHER, SELFPAY ==
[2019-07-15 01:18] VITALS: BMI 31.4
[2019-08-12 13:08] VITALS: BP 139/81; PULSE 149; PULSE 152; RESP 20; TEMP 36.7; O2SAT 100; BMI 29.2
--- NOTE | 2019-08-12 13:22 | EKG12_ITS ---
Test Reason : Blood Pressure : / mmHG Vent. Rate : 086 BPM Atrial Rate : 086 BPM P-R Int : 170 ms QRS Dur : 096 ms QT Int : 398 ms P-R-T Axes : 052 042 036 degrees QTc Int : 476 ms Normal sinus rhythm Nonspecific ST abnormality Abnormal ECG Confirmed by GERMAN ALCALA, CASEY ([id number]), film or videotape editor BLAINE GOMEZ ([id number]) on 08/14/2019 8:29:22 AM Referred By: SYLWIA Confirmed By:CASEY PORTER MD
--- NOTE | 2019-08-12 13:23 | ED.DCSUM_ITS ---
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 no chest pain. Narrative: Patient had a just over 1 month ago, her hospital stay was complicated by the possibility of a blood clot because both of her legs were swollen but she states she was not tested for a blood clot, simply put on Lovenox for 2 weeks. She finished the Lovenox, she states by then her legs were back to normal and have remained so. She denies any pain in her calves recently. She denies feeling ill prior to the acute onset of racing heartbeat 30 minutes prior to arrival. No syncope or chest pain. No history of cardiopulmonary disease or dysrhythmias in the past. She has been basically staying at home for the past month. Denies any known contact with persons ill with respiratory illness including coronavirus. Patient states she had -related hypertension that started after she delivered her baby within the past month. She was placed on nifedipine 30 mg once daily. Today was the first day that she was tapering off of it, she took 20 mg. Tachycardia seemed to start suddenly about 20 minutes after she took the pill. - Past Medical History (1) Anemia Status: Chronic (2) Hypertension, condition or complication Status: Chronic (3) Preeclampsia Status: Acute Past Medical History - Allergies and Home Meds Allergies/Adverse Reactions: Allergies bee venom protein (honey bee) Allergy (Verified 08/12/19 13:07) Anaphylaxis Primary Care Physician: Edna Pereyra MD [Primary Care Provider] - Román Disla MD [STAFF PHYSICIAN] - 1-2 Weeks Surgical History: - - section x1, D&C x2, finger surgery and use. Lives: With Family Smoking Status: Never smoker - Family History Maternal Family History: Reports: Hypertension Paternal Family History: Reports: High Cholesterol, Heart Disease - Father with CAD, passed in his 60s., Hypertension Review of Systems General: Reports: Malaise - lightheadedness. Denies: Chills, Fever, Sweats Eyes: Denies: Visual changes - bilaterally, Diplopia ENT: Denies: Bilateral ear pain, Rhinorrhea, Sore throat Cardiovascular: Reports: Palpitations, Heart racing. Denies: Chest pain Respiratory: Reports: Dyspnea. Denies: Cough, Dyspnea on exertion, Orthopnea Gastrointestinal: Denies: Abdominal pain, Nausea, Vomiting, Diarrhea, Melena, Hematochezia Genitourinary: Denies: Dysuria, Hematuria, Frequency Musculoskeletal: Denies: Back pain, Swelling - resolved BLE. see HPI., Extremity Pain Skin: Denies: Rash, Wounds Neurological: Denies: Headache, Weakness, Numbness Physical Exam Vital Signs/Narrative: Vital Signs Temp Pulse Resp BP Pulse Ox 08/12/19 13:08 98.0 F 152 H 20 H 139/81 H 100 Inital Vital Signs reviewed: Yes General: Well nourished, Well developed, No Acute Distress Head: Normocephalic, Atraumatic Eyes: Perrl, EOMI ENT: Moist mucous membranes, No rhinorrhea Neck: Supple, Nontender, No JVD Cardiovascular: Regular rate, Regular rhythm, No murmurs, Tachycardia Respiratory: No distress, CTA bilaterally, Chest nontender Abdomen: Soft, Nontender, Nondistended, Normal bowel sounds Back: Nontender, Normal Inspection Extremities: Nontender, No edema. Negative for: Calf Tenderness Skin: Normal color, No rash, No Trauma Neurological: Alert, Oriented x3, Cranial nerves II-XII grossly intact, Normal Strength, Normal Sensation Psychological: Normal affect, Normal Mood Diagnostic/Tx/Re-eval Impressions Chest X-Ray 08/12/19 13:32 IMPRESSION: Normal x-ray examination of the chest. Electronically Signed: Derik Carson DO at 13:53 EDT Tel [phone], Service support , 08/12/19 13:22 Chest 1 View (Portable) [RAD] Stat Laboratory Results 08/12/19 08/12/19 08/12/19 13:15 13:15 13:15 WBC 9.1 RBC 4.61 Hgb 12.4 Hct 39.5 MCV 85.7 MCH 26.9 L MCHC 31.4 L RDW Std Deviation 42.6 RDW Coeff of Diana 13.6 Plt Count 328 MPV 10.6 Immature Gran % (Auto) 0.200 Neut % (Auto) 39.2 L Lymph % (Auto) 48.7 H [place] % (Auto) 6.3 Eos % (Auto) 5.3 H Baso % (Auto) 0.3 Absolute Neuts (auto) 3.5 Absolute Lymphs (auto) 4.41 Nucleated RBC % 0 D-Dimer Quant (PE/DVT) 0.32 Sodium Potassium Chloride Carbon Dioxide Anion Gap BUN Creatinine Estim Creat Clear Calc Est GFR (MDRD) Af Amer Est GFR (MDRD) Non-Af BUN/Creatinine Ratio Glucose Calcium Total Bilirubin AST ALT Alkaline Phosphatase Troponin I < 0.015 Total Protein Albumin Globulin Albumin/Globulin Ratio 08/12/19 13:15 WBC RBC Hgb Hct MCV MCH MCHC RDW Std Deviation RDW Coeff of Diana Plt Count MPV Immature Gran % (Auto) Neut % (Auto) Lymph % (Auto) [place] % (Auto) Eos % (Auto) Baso % (Auto) Absolute Neuts (auto) Absolute Lymphs (auto) Nucleated RBC % D-Dimer Quant (PE/DVT) Sodium 138 Potassium 3.5 Chloride 105 Carbon Dioxide 24.0 Anion Gap 9 BUN 12 Creatinine 0.78 Estim Creat Clear Calc 104.45 Est GFR (MDRD) Af Amer 109 Est GFR (MDRD) Non-Af 90 BUN/Creatinine Ratio 15.3 Glucose 126 H Calcium 9.8 Total Bilirubin 0.30 AST 15 ALT 22 Alkaline Phosphatase 78 Troponin I Total Protein 8.5 H Albumin 4.5 Globulin 4.0 Albumin/Globulin Ratio 1.1 - Rhythm Strip Rhythm Strip: SVT Rate: 155 Ectopy: None - EKG Initial EKG Interpretation: No Acute Injury Pattern, SVT Prior: No Prior Follow-up EKG Interpretation: Sinus Rhythm, No Acute Injury Pattern Prior: Changed - now normal - Medical Decision Making Just after EKG obtained, modified vagal maneuver was performed. This resulted in the patient's rhythm breaking to sinus tachycardia at 120 from 155, she started gradually feeling better, and her rate slowly slowed down to the 70s. Repeat EKG is normal with sinus rhythm, narrow complexes. No delta wave seen. Her work-up is negative including d-dimer, ruling out venous thrombolic disease. She was ambulated down the padgett and did okay without any kind of recurrence of symptoms. I discussed with Dr. Disla with cardiology. He agreed that it was unlikely related to the nifedipine although the timing was suspicious, and that she could taper it more quickly since she is on a fairly low dose, going down to 10 mg daily until it is gone over she gets beyond 6 weeks. She will follow-up with her doctor and cardiology. ED Disposition - Plan for ED Patient: Disposition: Home or Assisted Living Diagnosis: SVT (supraventricular tachycardia) Instructions: ED Palpitations, ED Tachycardia PAT Referrals: Edna Pereyra MD [Primary Care Provider] - Román Disla MD [STAFF PHYSICIAN] - 1-2 Weeks Additional Instructions: Continue taking your nifedipine at 10 mg daily dosage, until the pills are gone or you get beyond the 6-week rajiv post delivery. Follow-up with your doctor for recheck your blood pressure. Follow-up with cardiology routinely.
--- NOTE | 2019-08-12 13:24 | NURSING ---
NO OLD EKGS
[2019-08-12 13:27] LABS: Absolute Lymphocyte Count 4.41 X10^3/uL (0.83-4.51); Absolute Neutrophil Count 3.5 X10^3/uL (2.0-7.7); Basophil# 0.03 X10^3/uL; Basophil% 0.3 % (0-1); Eosinophil# 0.48 X10^3/uL; Eosinophils% 5.3 % (0-5); Hematocrit 39.5 % (37-47); Hemoglobin 12.4 g/dL (12.0-15.0); Lymphocyte # 4.41 X10^3/ul (4.0); Lymphocyte % 48.7 % (19-41); Mean Corp Hgb Conc 31.4 g/dL (32-36); Mean Corpuscular Hgb 26.9 pg (27.0-32.0); Mean Corpuscular Volume 85.7 fL (81-99); Mean Platelet Vol. 10.6 fl (6.2-12.0); Monocyte# 0.57 X10^3/uL; Monocyte% 6.3 % (0-10); NRBC Flagged by Analyzer 0 % (0-5); Neutrophil # 3.54 X10^3/uL (2.7-7.7); Neutrophil % 39.2 % (47-70); Platelet Count 328 K/mm3 (150-450); RBC Distribution Width CV 13.6 % (11.6-14.6); RBC Distribution Width SD 42.6 fl (35.1-43.9); Red Blood Count 4.61 M/mm3 (4.2-5.4); White Blood Count 9.1 K/mm3 (4.4-11.0)
--- NOTE | 2019-08-12 13:32 | RAD_ITS ---
STUDY: X-RAY CHEST REASON FOR EXAM: Female, 34 years old. PALPITATIONS, ELEVATED BP TECHNIQUE: Frontal view COMPARISON: July 14, 2019 FINDINGS: The lungs are clear and expanded. There is no demonstrated pleural abnormality. Normal size heart. Normal mediastinum and eliane. Normal visualized pulmonary arteries. Normal visualized aortic arch and descending thoracic aorta. Normal visualized thoracic spine. Normal visualized ribs, clavicles, and shoulders. There is no demonstrated abnormality of the visualized soft tissue structures of the upper abdomen. RAD/Chest 1 View (Portable) IMPRESSION: Normal x-ray examination of the chest. Electronically Signed: Derik Carson DO at 13:53 EDT Tel [phone], Service support ,
[2019-08-12 13:38] LABS: D-Dimer Quantitative (DVT/PE) 0.32 FEU/ug/m (0.27-0.49)
--- NOTE | 2019-08-12 13:39 | EKG12_ITS ---
Test Reason : Blood Pressure : / mmHG Vent. Rate : 155 BPM Atrial Rate : 155 BPM P-R Int : 112 ms QRS Dur : 086 ms QT Int : 322 ms P-R-T Axes : 000 018 039 degrees QTc Int : 517 ms Sinus tachycardia Nonspecific ST and T wave abnormality Abnormal ECG Confirmed by GERMAN ALCALA, CASEY ([id number]), editor managing newspaper BLAINE GOMEZ ([id number]) on 08/14/2019 8:29:04 AM Referred By: KATHY Confirmed By:CASEY PORTER MD
[2019-08-12 13:52] LABS: ALB/GLOB Ratio 1.1 RATIO (0.9-2.4); AST(SGOT) 15 U/L (15-37); Alanine Aminotransfer ALT/SGPT 22 U/L (13-56); Albumin, Serum 4.5 g/dL (3.2-5.0); Alkaline Phosphatase 78 U/L (45-117); Anion Gap 9 (5-15); BUN 12 mg/dL (7-18); BUN/Creat Ratio 15.3 RATIO (10-20); Calcium,Total 9.8 mg/dL (8.5-10.1); Chloride 105 mmol/L (98-107); Creatinine, Serum 0.78 mg/dL (0.55-1.02); EST Glomerular Filtration Rate 90 mL/min (>60); Est Glom Filt Rate - Afr Amer 109 mL/min (>60); Estimated Creatinine Clearance 104.45 ml/min; Glucose 126 mg/dL (74-106); Potassium 3.5 mmol/L (3.5-5.1); Protein, Total 8.5 g/dL (6.4-8.2); Sodium Level 138 mmol/L (136-145)
[2019-08-12 14:08] VITALS: BP 120/78; PULSE 88; RESP 18; O2SAT 98
== END 2019-08-12 15:15 | disposition home or self-care (01) ==
PROVIDERS: Emergency Provider Emergency Medicine; PCP Internal Medicine
DX: I47.1 Supraventricular tachycardia (principal); O13.5 Gestational [pregnancy-induced] hypertension without significant proteinuria, complicating the puerperium
CPT/HCPCS: 71045; 80053; 84484; 85025; 85379; 93005; 99283; J7030; A4216

== ENCOUNTER 2019-10-08 13:30 | Emergency (ER) | payer OTHER, SELFPAY ==
[2019-10-08 13:31] VITALS: BP 130/56; PULSE 73; RESP 16; TEMP 35.7; O2SAT 97; BMI 28.8
--- NOTE | 2019-10-08 13:50 | ED.VIS.GI ---
History of Present Illness Chief Complaint: Abd Pain Informant: Patient - Abdominal Pain/Flank Pain Onset: Today Context: Sudden Onset Timing: Waxes and wanes Quality: Sharp Location: Epigastric Current Severity: Mild Maximum Severity: Severe Worsened by: Nothing Relieved by: Nothing - Nausea/Vomiting/Emesis GI Symptom: Negative for: Nausea, Vomiting - Diarrhea/Melena/Hematochezia GI Symptom: Negative for: Diarrhea, Melena, Hematochezia Associated Symptoms: Negative for: Dysuria, Frequency, Hematuria, Urgency Narrative: 34-year-old female presents to the emergency department abdominal pain. About 90 minutes ago she had a sudden onset of sharp epigastric and right upper quadrant abdominal pain that doubled her over and made her feel lightheaded. It radiated to her back. It lasted maybe 30 minutes and has resolved. No nausea or vomiting. No diarrhea. No chest pain. She is not short of breath. No diaphoresis. She is been eating and drinking normally. Having normal bowel movements. No urinary symptoms. She did have a 3 months ago that was complicated postoperatively by preeclampsia and she had palpitations after that as well and is currently on metoprolol. She did have GERD during was on Pepcid which she is not on at this time. She feels that her symptoms are different than that. Prior similar symptoms: No Recent Illness/Hospitalization: Yes Past Medical History - Allergies and Home Meds Allergies/Adverse Reactions: Allergies bee venom protein (honey bee) Allergy (Verified 10/08/19 13:31) Anaphylaxis Primary Care Physician: Edna Pereyra MD [Primary Care Provider] - Prior records reviewed: Yes Past Medical History: - - PVC's, concern for SVT Surgical History: - - section x1, D&C x2, finger surgery and use. Lives: With Family Smoking Status: Never smoker Alcohol: None Drugs: None - Family History Maternal Family History: Reports: Hypertension Paternal Family History: Reports: High Cholesterol, Heart Disease - Father with CAD, passed in his 60s., Hypertension Review of Systems General: Denies: Chills, Fever, Malaise, Sweats Eyes: Denies: Visual changes - bilaterally, Diplopia ENT: Denies: Rhinorrhea, Sore throat Cardiovascular: Denies: Chest pain, Palpitations Respiratory: Denies: Dyspnea, Cough, Dyspnea on exertion Gastrointestinal: Reports: Abdominal pain. Denies: Nausea, Vomiting, Diarrhea, Constipation, Melena, Hematochezia Genitourinary: Denies: Dysuria, Hematuria, Frequency Musculoskeletal: Denies: Back pain, Extremity Pain Skin: Denies: Rash, Wounds Neurological: Denies: Headache, Weakness, Numbness Physical Exam Vital Signs/Narrative: Vital Signs Temp Pulse Resp BP Pulse Ox 10/08/19 13:31 96.2 F L 73 16 130/56 H 97 Inital Vital Signs reviewed: Yes General: Well nourished, Well developed, No Acute Distress Head: Normocephalic, Atraumatic Eyes: Perrl, EOMI ENT: Moist mucous membranes, No rhinorrhea Neck: Supple, Nontender Cardiovascular: Regular rate, Regular rhythm, No murmurs Respiratory: No distress, CTA bilaterally, Chest nontender Abdomen: Soft, Nontender, Nondistended, Normal bowel sounds Back: Nontender, Normal Inspection. Negative for: CVA tenderness Extremities: Nontender, No edema Skin: Normal color, No rash Neurological: Alert, Oriented x3, Cranial nerves II-XII grossly intact, Normal Strength, Normal Sensation Psychological: Normal affect, Normal Mood Diagnostic/Tx/Re-eval Laboratory Tests 10/08/19 10/08/19 10/08/19 Range/Units 14:25 14:25 14:00 WBC (4.4-11.0) K/mm3 RBC (4.2-5.4) M/mm3 Hgb (12.0-15.0) g/dL Hct (37-47) % MCV (81-99) fL MCH (27.0-32.0) pg MCHC (32-36) g/dL RDW Std Deviation (35.1-43.9) fl RDW Coeff of Diana (11.6-14.6) % Plt Count (150-450) K/mm3 MPV (6.2-12.0) fl Immature Gran % (Auto) (0.0-0.9) % Neut % (Auto) (47-70) % Lymph % (Auto) (19-41) % Baker % (Auto) (0-10) % Eos % (Auto) (0-5) % Baso % (Auto) (0-1) % Absolute Neuts (auto) (2.0-7.7) X10^3/uL Absolute Lymphs (auto) (0.83-4.51) X10^3/uL Nucleated RBC % (0-5) % Sodium 140 (136-145) mmol/L Potassium 3.6 (3.5-5.1) mmol/L Chloride 105 (98-107) mmol/L Carbon Dioxide 28.0 (21.0-32.0) mmol/L Anion Gap 7 (5-15) BUN 14 (7-18) mg/dL Creatinine 0.86 (0.55-1.02) mg/dL Estim Creat Clear Calc 94.74 ml/min Est GFR (MDRD) Af Amer 98 (>60) mL/min Est GFR (MDRD) Non-Af 81 (>60) mL/min BUN/Creatinine Ratio 16.2 (10-20) RATIO Glucose 141 H (74-106) mg/dL Calcium 9.0 (8.5-10.1) mg/dL Total Bilirubin 0.50 (0.20-1.00) mg/dL AST 57 H (15-37) U/L ALT 43 (13-56) U/L Alkaline Phosphatase 91 (45-117) U/L Total Protein 7.8 (6.4-8.2) g/dL Albumin 3.8 (3.2-5.0) g/dL Globulin 4.0 (2.2-4.2) g/dL Albumin/Globulin Ratio 1.0 (0.9-2.4) RATIO Lipase 98 (73-393) U/L Urine Color Yellow (Yellow) Urine Clarity Clear (Clear) Urine pH 6.0 (5.0 - 8.0) Ur Specific [place] 1.015 (1.002-1.030) Urine Protein Negative (Negative) mg/dl Urine Glucose (UA) Normal (Normal) mg/dl Urine Ketones Negative (Negative) mg/dl Urine Occult Blood Negative (Negative) /ul Urine Nitrite Negative (Negative) Urine Bilirubin Negative (Negative) mg/dL Urine Urobilinogen Normal (Normal) mg/dl Ur Leukocyte Esterase Negative (Negative) /ul Urine RBC 0 SEEN (0-5) /hpf Urine WBC 0 SEEN (0-5) /hpf Ur Squamous Epith Cells 0 SEEN (5-10) /hpf Urine Bacteria 0 SEEN (None Seen) /hpf Urine Mucus 0 SEEN (<or=2+) /hpf Urine Test Negative Negative 10/08/19 Range/Units 14:00 WBC 7.7 (4.4-11.0) K/mm3 RBC 4.37 (4.2-5.4) M/mm3 Hgb 12.0 (12.0-15.0) g/dL Hct 37.7 (37-47) % MCV 86.3 (81-99) fL MCH 27.5 (27.0-32.0) pg MCHC 31.8 L (32-36) g/dL RDW Std Deviation 42.5 (35.1-43.9) fl RDW Coeff of Diana 13.5 (11.6-14.6) % Plt Count 298 (150-450) K/mm3 MPV 10.9 (6.2-12.0) fl Immature Gran % (Auto) 0.100 (0.0-0.9) % Neut % (Auto) 55.1 (47-70) % Lymph % (Auto) 32.2 (19-41) % Baker % (Auto) 4.9 (0-10) % Eos % (Auto) 7.4 H (0-5) % Baso % (Auto) 0.3 (0-1) % Absolute Neuts (auto) 4.3 (2.0-7.7) X10^3/uL Absolute Lymphs (auto) 2.49 (0.83-4.51) X10^3/uL Nucleated RBC % 0 (0-5) % Sodium (136-145) mmol/L Potassium (3.5-5.1) mmol/L Chloride (98-107) mmol/L Carbon Dioxide (21.0-32.0) mmol/L Anion Gap (5-15) BUN (7-18) mg/dL Creatinine (0.55-1.02) mg/dL Estim Creat Clear Calc ml/min Est GFR (MDRD) Af Amer (>60) mL/min Est GFR (MDRD) Non-Af (>60) mL/min BUN/Creatinine Ratio (10-20) RATIO Glucose (74-106) mg/dL Calcium (8.5-10.1) mg/dL Total Bilirubin (0.20-1.00) mg/dL AST (15-37) U/L ALT (13-56) U/L Alkaline Phosphatase (45-117) U/L Total Protein (6.4-8.2) g/dL Albumin (3.2-5.0) g/dL Globulin (2.2-4.2) g/dL Albumin/Globulin Ratio (0.9-2.4) RATIO Lipase (73-393) U/L Urine Color (Yellow) Urine Clarity (Clear) Urine pH (5.0 - 8.0) Ur Specific [place] (1.002-1.030) Urine Protein (Negative) mg/dl Urine Glucose (UA) (Normal) mg/dl Urine Ketones (Negative) mg/dl Urine Occult Blood (Negative) /ul Urine Nitrite (Negative) Urine Bilirubin (Negative) mg/dL Urine Urobilinogen (Normal) mg/dl Ur Leukocyte Esterase (Negative) /ul Urine RBC (0-5) /hpf Urine WBC (0-5) /hpf Ur Squamous Epith Cells (5-10) /hpf Urine Bacteria (None Seen) /hpf Urine Mucus (<or=2+) /hpf Urine Test Negative - Medical Decision Making Patient declined analgesia. Laboratory work-up including CBC, CMP and lipase are all within normal limits. Urinalysis is unremarkable and urine is negative. Repeat exam the patient remains pain-free. Abdomen is soft and nontender. Patient is able to tolerate by mouth. Patient will be discharged home. We will follow-up with her primary care physician in the next several days. Will prescribe Pepcid. She will return for worsening symptoms. ED Disposition - Plan for ED Patient: Disposition: Home or Assisted Living Diagnosis: Abdominal pain, Paroxysmal SVT (supraventricular tachycardia) Instructions: ED Abdominal Pain Unkn Cause Fem Prescriptions: Famotidine [Pepcid] 20 mg PO BID #28 tab Prescription Printed Referrals: Edna Pereyra MD [Primary Care Provider] -
--- NOTE | 2019-10-08 13:55 | ED.DCSUM_ITS ---
- ER Visit Summary Date of Service: 10/08/19 Chief Complaint: [Abdominal pain] History of Present Illness: The patient is a 34 F [presented to the emergency department with complaint of abdominal pain that started about an hour and a half ago. Patient states that the pain lasted about 45 minutes and now is mostly resolved. Patient states that she was outside painting with some chalk when the pain started. Patient had eaten lunch about 1130 and had a turkey sandwich with cheese. Her last bowel movement was yesterday. Patient states she had sudden onset of pain across her upper abdomen that at one point radiated to her back. She had some mild nausea but no vomiting. She denies any blood in her stool or black tarry stools. Patient delivered a baby 3 months ago. Patient had preeclampsia after delivery. Patient also recently was treated for SVT. She currently is not on blood thinners although she had been on blood thinners for 2 weeks during the time of her preeclampsia. Patient has had no significant abdominal surgeries other than . She has no other medical history.] Physical Examination: [HEENT-PERRLA, EOMI. Cranial nerves II through XII grossly intact. TMs clear. Mucous membranes moist. No adenopathy. Cardiovascular-regular rate and rhythm without murmur or ectopy Lungs-clear to auscultation, chest wall stable without crepitus or subcu emphysema Abdomen-normoactive bowel sounds, soft, nontender, no rebound or rigidity, no peritoneal signs. Extremities-intact ?4, normal range of motion, normal pulses, atraumatic] Test Results: [CBC with it was normal. Chemistries unremarkable. AST was only minimally elevated. Total bilirubin was normal. ALT was normal. Lipase normal. Urinalysis normal. hCG was negative.] Emergency Department Course and Treatment: [Patient did not require anything for pain in the department. Patient states her pains come completely resolved.] Treatment Plan: [Patient will be given a prescription for Pepcid. Patient advised to return if worsening pain, fever, pain that is worsened by eating spicy or greasy foods, or condition should worsen anyway.] Disposition: [Discharged home in stable condition] Impression: [Abdominal pain-etiology uncertain] This note was generated with [employer] software. It may contain incorrect words, spelling, and punctuation that were not noted in review of the chart prior to signing ED Disposition - Plan for ED Patient: Referrals: Edna Pereyra MD [Primary Care Provider] -
[2019-10-08 14:09] LABS: Absolute Lymphocyte Count 2.49 X10^3/uL (0.83-4.51); Absolute Neutrophil Count 4.3 X10^3/uL (2.0-7.7); Basophil# 0.02 X10^3/uL; Basophil% 0.3 % (0-1); Eosinophil# 0.57 X10^3/uL; Eosinophils% 7.4 % (0-5); Hematocrit 37.7 % (37-47); Lymphocyte # 2.49 X10^3/ul (4.0); Lymphocyte % 32.2 % (19-41); Mean Corp Hgb Conc 31.8 g/dL (32-36); Mean Corpuscular Hgb 27.5 pg (27.0-32.0); Mean Corpuscular Volume 86.3 fL (81-99); Mean Platelet Vol. 10.9 fl (6.2-12.0); Monocyte# 0.38 X10^3/uL; Monocyte% 4.9 % (0-10); NRBC Flagged by Analyzer 0 % (0-5); Neutrophil # 4.26 X10^3/uL (2.7-7.7); Neutrophil % 55.1 % (47-70); Platelet Count 298 K/mm3 (150-450); RBC Distribution Width CV 13.5 % (11.6-14.6); RBC Distribution Width SD 42.5 fl (35.1-43.9); Red Blood Count 4.37 M/mm3 (4.2-5.4); White Blood Count 7.7 K/mm3 (4.4-11.0)
[2019-10-08 14:32] LABS: AST(SGOT) 57 U/L (15-37); Alanine Aminotransfer ALT/SGPT 43 U/L (13-56); Albumin, Serum 3.8 g/dL (3.2-5.0); Alkaline Phosphatase 91 U/L (45-117); Anion Gap 7 (5-15); BUN 14 mg/dL (7-18); BUN/Creat Ratio 16.2 RATIO (10-20); Chloride 105 mmol/L (98-107); Creatinine, Serum 0.86 mg/dL (0.55-1.02); EST Glomerular Filtration Rate 81 mL/min (>60); Est Glom Filt Rate - Afr Amer 98 mL/min (>60); Estimated Creatinine Clearance 94.74 ml/min; Glucose 141 mg/dL (74-106); Lipase 98 U/L (73-393); Potassium 3.6 mmol/L (3.5-5.1); Protein, Total 7.8 g/dL (6.4-8.2); Sodium Level 140 mmol/L (136-145)
[2019-10-08 14:36] LABS: Bacteria 0 SEEN /hpf (None Seen); Mucous, Urine 0 SEEN /hpf (<or=2+); Red Blood Cells-Urine 0 SEEN /hpf (0-5); Squamous Epithelial Cells - UA 0 SEEN /hpf (5-10); White Blood Cells 0 SEEN /hpf (0-5)
[2019-10-08 14:50] LABS: Color, Urine Yellow (Yellow); Glucose, Dipstick Normal (Normal); Ketone-Dipstick Negative (Negative); Leukocyte Esterase-Dipstick Negative /ul (Negative); Nitrite-Dipstick Negative (Negative); Occult Blood-Urine Negative /ul (Negative); Protein-Dipstick Negative (Negative); Specific Gravity, Urine 1.015 (1.002-1.030); Urine Bilirubin Dipstick Negative (Negative); Urine Clarity Clear (Clear); Urine Urobilinogen Normal (Normal)
[2019-10-08 14:54] LABS: Internal QC Validated? YES +Cl - CLEAR BKGD; Pregnancy, Urine Negative Negative
[2019-10-08 15:41] VITALS: BP 124/67; PULSE 70; RESP 16; O2SAT 98
== END 2019-10-08 15:42 | disposition home or self-care (01) ==
PROVIDERS: Emergency Provider Physician Assistant Medical; PCP Internal Medicine
DX: R10.13 Epigastric pain (principal); R10.11 Right upper quadrant pain; I47.1 Supraventricular tachycardia
CPT/HCPCS: 80053; 81001; 81025; 83690; 85025; 99284; A4216

== ENCOUNTER 2020-06-11 23:04 | Emergency (ER) | payer OTHER, SELFPAY ==
[2020-06-11 23:05] VITALS: BP 133/80; PULSE 73; RESP 18; TEMP 36.2; O2SAT 99; BMI 28.4
--- NOTE | 2020-06-11 23:21 | ED.VIS.GEN ---
History of Present Illness Chief Complaint: Abd Pain Informant: Patient Narrative: Patient presents with upper abdominal pain for last 1 hour. Came on gradually. Describes a aching tightness sensation. She took a Nexium with mild relief of symptoms. She has had this remotely in the past. Is been continuous. No nausea vomiting or diarrhea fevers or chills. She felt fine prior to this coming on. No history of gallstones. Just finished her menstrual period last week. Denies any urinary symptoms. It does not hurt to push on it. Current severity is mild. Denies any chest pain or shortness of breath or cardiac history. - Past Medical History (1) Fever Status: Acute (2) fever Status: Acute (3) pelvic thrombophlebitis Status: Acute (4) Preeclampsia Status: Acute (5) Anemia Status: Chronic (6) Hypertension, condition or complication Status: Chronic Past Medical History - Allergies and Home Meds Allergies/Adverse Reactions: Allergies bee venom protein (honey bee) Allergy (Verified 10/08/19 13:31) Anaphylaxis Primary Care Physician: Edna Pereyra MD [Primary Care Provider] - Prior records reviewed: Yes Past Medical History: - - See problem list Surgical History: - - section x1, D&C x2, finger surgery and use. Lives: With Family Smoking Status: Never smoker Alcohol: None Drugs: None - Family History Maternal Family History: Reports: Hypertension Paternal Family History: Reports: High Cholesterol, Heart Disease - Father with CAD, passed in his 60s., Hypertension Review of Systems General: Denies: Chills, Fever, Sweats Eyes: Denies: Visual changes - bilaterally, Diplopia ENT: Denies: Rhinorrhea, Sore throat Cardiovascular: Denies: Chest pain, Palpitations Respiratory: Denies: Dyspnea, Cough, Dyspnea on exertion Gastrointestinal: Reports: Abdominal pain. Denies: Nausea, Vomiting, Diarrhea, Melena, Hematochezia Genitourinary: Denies: Dysuria, Hematuria, Frequency Musculoskeletal: Denies: Back pain, Extremity Pain Skin: Denies: Rash, Wounds Neurological: Denies: Headache, Weakness, Numbness Physical Exam Vital Signs/Narrative: Vital Signs Temp Pulse Resp BP Pulse Ox 06/11/20 23:05 97.2 F L 73 18 133/80 H 99 General: Well nourished, Well developed, No Acute Distress Head: Normocephalic, Atraumatic Eyes: Perrl, EOMI ENT: Moist mucous membranes, No rhinorrhea Neck: Supple, Nontender Cardiovascular: Regular rate, Regular rhythm, No murmurs Respiratory: No distress, CTA bilaterally, Chest nontender Abdomen: Soft, Nontender, Nondistended, Normal bowel sounds Back: Nontender, Normal Inspection Extremities: Nontender, No edema Skin: Normal color, No rash Neurological: Alert, Oriented x3, Cranial nerves II-XII grossly intact, Normal Strength, Normal Sensation Psychological: Normal affect, Normal Mood Diagnostic/Tx/Re-eval - Medical Decision Making Patient has no reproducible abdominal pain. No swelling or masses. Lab work obtained. Given GI cocktail and Toradol. Lab work unremarkable except for AST is 63. Lipase normal. negative. CBC and BMP normal. On reevaluation resting comfortably without pain. This may be gastritis related discomfort. We will continue Nexium. Will do Mylanta [id number]. Do not feel she needs imaging or has an acute emergent cause of her symptoms. To follow-up as an outpatient ED Disposition - Plan for ED Patient: Disposition: Home or Assisted Living Diagnosis: Gastritis Instructions: ED PEPTIC ULCER vs GASTRITIS Referrals: Edna Pereyra MD [Primary Care Provider] -
[2020-06-11] MEDS: Mag Hydrox/Al Hydrox/Simeth 30 ML UDC PO (23:30)
[2020-06-11] MEDS: Ketorolac 15 MG/ML Vial IV (23:30)
[2020-06-11 23:38] LABS: Absolute Lymphocyte Count 2.26 X10^3/uL (0.83-4.51); Absolute Neutrophil Count 6.6 X10^3/uL (2.0-7.7); Basophil# 0.03 X10^3/uL; Basophil% 0.3 % (0-1); Eosinophil# 0.03 X10^3/uL; Eosinophils% 0.3 % (0-5); Hematocrit 38.8 % (37-47); Hemoglobin 12.5 g/dL (12.0-15.0); Lymphocyte # 2.26 X10^3/ul (4.0); Lymphocyte % 22.9 % (19-41); Mean Corp Hgb Conc 32.2 g/dL (32-36); Mean Corpuscular Hgb 29.1 pg (27.0-32.0); Mean Corpuscular Volume 90.2 fL (81-99); Mean Platelet Vol. 10.3 fl (6.2-12.0); Monocyte# 0.88 X10^3/uL; Monocyte% 8.9 % (0-10); NRBC Flagged by Analyzer 0 % (0-5); Neutrophil # 6.64 X10^3/uL (2.7-7.7); Neutrophil % 67.3 % (47-70); Platelet Count 324 K/mm3 (150-450); RBC Distribution Width SD 42.5 fl (35.1-43.9); White Blood Count 9.9 K/mm3 (4.4-11.0)
[2020-06-11 23:47] LABS: Internal QC Validated? YES +Cl - CLEAR BKGD; Pregnancy, Serum, hCG Quali. NEGATIVE Negative
[2020-06-11 23:55] LABS: ALB/GLOB Ratio 0.9 RATIO (0.9-2.4); AST(SGOT) 63 U/L (15-37); Alanine Aminotransfer ALT/SGPT 56 U/L (13-56); Albumin, Serum 3.5 g/dL (3.2-5.0); Alkaline Phosphatase 74 U/L (45-117); Anion Gap 5 (5-15); BUN 17 mg/dL (7-18); BUN/Creat Ratio 22.2 RATIO (10-20); Calcium,Total 9.1 mg/dL (8.5-10.1); Chloride 101 mmol/L (98-107); Creatinine, Serum 0.76 mg/dL (0.55-1.02); EST Glomerular Filtration Rate 92 mL/min (>60); Est Glom Filt Rate - Afr Amer 112 mL/min (>60); Estimated Creatinine Clearance 106.21 ml/min; Glucose 103 mg/dL (74-106); Lipase 101 U/L (73-393); Potassium 4.1 mmol/L (3.5-5.1); Protein, Total 7.5 g/dL (6.4-8.2); Sodium Level 136 mmol/L (136-145)
[2020-06-12 00:30] VITALS: BP 143/82; PULSE 60; RESP 18; O2SAT 99
== END 2020-06-12 00:31 | disposition home or self-care (01) ==
PROVIDERS: Emergency Provider Emergency Medicine; PCP Internal Medicine
DX: K29.70 Gastritis, unspecified, without bleeding (principal)
CPT/HCPCS: 80053; 83690; 84703; 85025; 96374; 99284

== ENCOUNTER 2020-09-04 12:10 | Outpatient (RCR) | payer OTHER, SELFPAY | END 2020-10-09 23:59 | LOC: IMMUN 12:10 | PROVIDERS: PCP Internal Medicine; Referring Provider Family Medicine; Visit Provider Family Medicine | DX: Z23 Encounter for immunization (principal) | CPT/HCPCS: 0001A; 91300 ==

== ENCOUNTER 2020-09-14 12:40 | Emergency (ER) | payer OTHER, SELFPAY ==
[2020-09-14 12:40] VITALS: BP 127/72; PULSE 81; RESP 16; TEMP 36.7; O2SAT 98; BMI 28.1
--- NOTE | 2020-09-14 12:45 | VDLE_ITS ---
Reason For Study: PAIN RIGHT LEFT GSV is normal. CFV is compressible, spontaneous, phasic, CFV is compressible, spontaneous, phasic, competent, and demonstrates normal competent and demonstrates normal augmentation. augmentation. FV is compressible, spontaneous, phasic, competent and demonstrates normal augmentation. POP V is compressible, spontaneous, phasic, competent and demonstrates normal augmentation. T/P Trunk is compressible. PTV is compressible. RT PerV is compressible. Procedure This is a venous duplex using B-mode, color flow and spectral Doppler. Exam performed portable in ED. A preliminary report was called and/or faxed to ED. VL/Venous Duplex US, Unilateral Interpretation Summary There is no evidence of right lower extremity deep vein thrombosis. Right great saphenous vein appears patent and compressible segmentally. Patent and compressible left commo n femoral vein with normal flow patterns Ordering Physician: Siva Poole Referring Physician: MARCELLUS TEJADA Performed By: Lizette Alex, ANTONIOCS, RVT
--- NOTE | 2020-09-14 12:58 | EX.ED.DYSGE1 ---
HPI History of Present Illness Chief Complaint: Lower Extremity Injury Informant: patient Onset/Context/Timing Onset: Days Context: Gradual Onset Timing: Continuous Current Severity: Mild Maximum Severity: Mild Narrative Narrative: The patient is a 35-year-old female medical history significant for preeclampsia last year, pelvic thrombophlebitis requiring 2 weeks of Lovenox therapy, and hypertension who presents to the emergency department with right lower extremity swelling. Patient denies any injury. She states over the past 3 days, she is noted some swelling mostly at the ankle. She denies chest pain or shortness of breath. She denies cough. She had no fever. She is still ambulating without issue. Prior similar symptoms: Yes Recent Illness/Hospitalization: No PFSH PFSH Medical History History of DVT (deep vein thrombosis) History of pre-eclampsia Home Medications escitalopram oxalate 5 mg PO DAILY 06/11/20 [History Last Taken Unknown] Allergy/AdvReac Type Severity Reaction Status Date / Time bee venom protein (honey bee) Allergy Anaphylaxis Verified 09/14/20 12:43 Social History Smoking Status: Never smoker ROS ROS ED Constitutional Constitutional ED: Denies chills or fever(s) Eyes Eyes: Denies blurry vision or change in vision ENT ENT ED: Denies ear pain or sore throat Cardiovascular Cardiovascular: Denies chest pain or palpitations Respiratory/Chest Respiratory/Chest: Denies cough, dyspnea or dyspnea on exertion Gastrointestinal Gastrointestinal: Denies abdominal pain, nausea or vomiting Genitourinary Genitourinary ED: Denies dysuria or urinary frequency Musculoskeletal Musculoskeletal: Denies arthralgias or myalgias Integumentary Denies rash Neurologic Neurologic: Denies headache(s) or paresthesias Psychiatric Psychiatric: Denies anxiety or depression Endocrine Endocrinology: Denies polydipsia or polyuria Allergic/Immunologic Allergic/Immunologic ED: Denies urticaria EXAM Physical Exam Const Vital Signs: 09/14/20 12:40 Temperature 98.0 F Temperature Source Temporal Pulse Rate 81 Respiratory Rate 16 Blood Pressure 127/72 H Blood Pressure Mean 90 Pulse Ox 98 Oxygen Delivery Method Room Air Positive well nourished and well developed General Appearance ED: well developed HEENT Reports normocephalic, head/scalp atraumatic and moist mucous membranes Eyes PERRL and EOMs intact bilaterally Neck no lymphadenopathy and supple General: Negative for tenderness Chest Wall inspection of chest normal Resp normal respiratory effort and clear to auscultation bilaterally Cardio regular rate, regular rhythm and no murmurs GI normal to inspection, nondistended, normoactive bowel sounds Palpation: Negative for tender, guarding or rebound tenderness present Back/Spine no CVA tenderness Cervical Spine: Negative for cervical spine tenderness Thoracic Spine / Upper Back: Negative for thoracic spinal tenderness Extremity normal to inspection Extremity Narrative: Scant edema of the right lower extremity. Normal pulses. Compartments soft. General Extremety ED: Yes edema; Negative for tenderness General Extremity: edema Neuro oriented x3 and CN's II-XII intact bilaterally Neuro Narrative: No focal deficits appreciated. Sensorium / Orientation: alert Psych mental status grossly normal Skin no rashes or lesions noted, no wounds and skin turgor normal MDM MDM MDM Narrative Medical decision making narrative: Patient presents with lower extremity pain and swelling around her ankle. She does have a history of prior phlebitis. Her pulses are normal. Her calves are soft. I did obtain lower extremity ultrasound. There is no evidence of DVT. This point, I do not suspect a dangerous cause of her swelling. She had no chest pain or dyspnea. At this point, the patient be discharged home with outpatient follow-up. Impression 1. Lower extremity edema Discharge Plan Triage Chief Complaint: Lower Extremity Injury ED Provider: Siva Poole Dx/Rx/DC Orders Instructions: ED Peripheral Edema, Unilateral Prescriptions: No Action escitalopram oxalate 5 MG tablet 5 mg PO DAILY RF: 0 Primary Care Provider: Edna Pereyra Referrals: Edna Pereyra MD [Primary Care Provider] -
== END 2020-09-14 14:22 | disposition home or self-care (01) ==
PROVIDERS: Emergency Provider Emergency Medicine; PCP Internal Medicine
DX: R60.0 Localized edema (principal); Z86.718 Personal history of other venous thrombosis and embolism
CPT/HCPCS: 93971; 99282; A4216

== ENCOUNTER 2021-05-26 16:10 | Outpatient (CLI) | payer BC, SELFPAY ==
[2021-05-30 18:58] LABS: HPV APTIMA, High Risk Negative (Negative)
== END 2021-05-26 23:59 | disposition short-term general hospital (02) ==
LOC: WOBLAB 16:16
PROVIDERS: PCP Internal Medicine; Visit Provider Student in an Organized Health Care Education/Training Program
DX: Z12.4 Encounter for screening for malignant neoplasm of cervix (principal)
CPT/HCPCS: 87624; 88175; G0145

== ENCOUNTER 2022-02-17 12:15 | Inpatient (IN) | payer BC, SELFPAY ==
[2022-02-17] VITALS (9 sets, daily range): BP systolic 117–130; BP diastolic 64–85; PULSE 64–93; RESP 14–18; TEMP 36.6–37.7; O2SAT 95–100; BMI 28.7; BMI 27.3
--- NOTE | 2022-02-17 12:38 | US_ITS ---
STUDY: ABDOMINAL ULTRASOUND - RIGHT UPPER QUADRANT REASON FOR VISIT: Female, 36 years old . Right upper quadrant pain.. TECHNIQUE: Ultrasound evaluation of the right upper quadrant was performed with real-time and static kelsey-scale imaging. TECHNICAL QUALITY: Adequate. COMPARISON: None. FINDINGS: Liver: The liver is mildly enlarged and measures 17.1 cm. There is a heterogeneous echogenicity of the liver. The bile ducts are within normal limits. There is hepatic color flow. The direction of portal flow is hepatopetal. There is no demonstrated mass lesion. Gallbladder: Normal distended gallbladder. The gallbladder wall measures 2.2 mm. There is a negative sonographic [place]''s sign. There is no pericholecystic fluid. There are multiple echogenic structures within the gallbladder, consistent with multiple gallstones. A gallstone is seen in the common bile duct. Common Bile Duct (C.B.D.): The common bile duct is dilated and measures 12.5 mm. Pancreas: Normal size of the head, body and tail of the pancreas. There is normal echogenicity of the pancreas. There is no demonstrated pancreatic mass or cyst. Right Kidney: Normal size of the right kidney. The right kidney measures 12.1 cm x 6 x 4.4 cm. Normal renal cortex. The right cortex measures 1.2 cm. There is no demonstrated renal mass or cyst. There is no right hydronephrosis. US/Gallbladder IMPRESSION: Mild hepatomegaly. Multiple gallstones. Dilated common bile duct with a gallstone within it. Electronically Signed: Herminio Giron MD at 13:55 EDT ,
--- NOTE | 2022-02-17 12:43 | EX.ED.DYSGE1 ---
HPI History of Present Illness Chief Complaint: Abd Pain Informant: patient Onset/Context/Timing Onset: Today Current Severity: Moderate Maximum Severity: Moderate Narrative Narrative: Patient states she woke this morning with epigastric pain. She felt well yesterday. She tried taking Nexium and Tums without improvement. She went to urgent care where lab work was sent but she does not yet have results. They scheduled an ultrasound for 3 PM. Because of her pain they chose to send her to the emergency room. Patient states has had flares like this in the past that only lasted a short time. She has never had her gallbladder evaluated. [facility] Medical History History of DVT (deep vein thrombosis) History of pre-eclampsia Home Medications escitalopram oxalate 5 mg tablet 5 mg PO DAILY 06/11/20 [History Last Taken Unknown] Allergy/AdvReac Type Severity Reaction Status Date / Time bee venom protein (honey bee) Allergy Anaphylaxis Verified 02/17/22 12:17 Social History Smoking Status: Never smoker ROS ROS ED Constitutional Constitutional ED: Denies chills or fever(s) Eyes Eyes: Denies change in vision or discharge from eye(s) ENT ENT ED: Denies discharge from eye(s), rhinorrhea or sore throat Cardiovascular Cardiovascular: Denies chest pain or palpitations Respiratory/Chest Respiratory/Chest: Denies cough or dyspnea Gastrointestinal Gastrointestinal: Reports abdominal pain and nausea; Denies diarrhea or vomiting Genitourinary Genitourinary ED: Denies difficulty urinating or dysuria Musculoskeletal Musculoskeletal: Denies back pain or extremity pain Integumentary Denies Abrasions or rash Neurologic Neurologic: Denies headache(s) or weakness Psychiatric Psychiatric: Denies anxiety or depression Allergic/Immunologic Allergic/Immunologic ED: Denies lip swelling or urticaria EXAM Physical Exam Const Vital Signs: 02/17/22 12:16 Temperature 98 F Temperature Source Temporal Pulse Rate 75 Respiratory Rate 16 Blood Pressure 121/66 H Blood Pressure Mean 84 Pulse Ox 100 Oxygen Delivery Method Room Air Positive well nourished and well developed General Appearance ED: well developed HEENT Reports normocephalic and head/scalp atraumatic Eyes PERRL and EOMs intact bilaterally Neck supple Chest Wall inspection of chest normal and palpation of chest normal Resp normal respiratory effort and clear to auscultation bilaterally Cardio regular rate and regular rhythm GI GI Narrative: Epigastric tenderness to palpation. No guarding or rebound. Palpation: soft Extremity normal to inspection Neuro oriented x3 and no sensory deficits noted Sensorium / Orientation: alert Motor Exam: strength 5/5 throughout Psych mental status grossly normal Skin no rashes or lesions noted MDM MDM MDM Narrative Medical decision making narrative: Patient given IV fluids, morphine, Zofran. Lab work obtained along with right upper quadrant ultrasound. Lab Data Attestation: I reviewed the patient's lab results. Labs: Laboratory Results - last 24 hr 02/17/22 02/17/22 02/17/22 13:00 13:00 13:00 WBC 7.5 RBC 5.14 Hgb 14.6 Hct 43.8 MCV 85.2 MCH 28.4 MCHC 33.3 RDW Std Deviation 39.7 RDW Coeff of Diana 12.8 Plt Count 253 MPV 10.3 Immature Gran % (Auto) 0.300 Neut % (Auto) 72.9 H Lymph % (Auto) 20.2 [place] % (Auto) 5.9 Eos % (Auto) 0.4 Baso % (Auto) 0.3 Absolute Neuts (auto) 5.5 Absolute Lymphs (auto) 1.51 Nucleated RBC % 0 Sodium 137 Potassium 4.0 Chloride 102 Carbon Dioxide 29.0 Anion Gap 6 BUN 9 Creatinine 0.70 Estim Creat Clear Calc 114.23 Est GFR (MDRD) Af Amer 123 Est GFR (MDRD) Non-Af 102 BUN/Creatinine Ratio 12.9 Glucose 97 Calcium 10.4 H Total Bilirubin 1.30 H Direct Bilirubin 0.65 H AST 144 H ALT 123 H Alkaline Phosphatase 76 Total Protein 8.5 H Albumin 4.4 Globulin 4.1 Lipase 98 Serum , Qual NEGATIVE Radiography Diagnostic Testing: Clinical Impression(s) from Imaging Studies Gallbladder Ultrasound 02/17/22 12:38 IMPRESSION: Mild hepatomegaly. Multiple gallstones. Dilated common bile duct with a gallstone within it. Electronically Signed: Herminio Giron MD at 13:55 EDT , Treatment and Re-Evaluation Narrative: Patient's white blood cell count is normal at 7.5 with 72% neutrophils. Chemistry studies significant for total bili of 1.3, direct bili 0.65, AST 144, ALT 123. Lipase is normal at 98. test is negative. Right upper quadrant ultrasound reveals multiple gallstones. There is a dilated common bile duct with a gallstone within it. I spoken with both surgery and GI. Patient will be admitted for further treatment. I will give her a dose of Zosyn at this time. Discharge Plan Triage Chief Complaint: Abd Pain ED Provider: Urszula Mendieta Dx/Rx/DC Orders Clinical Impression: Choledocholithiasis Prescriptions: No Action escitalopram oxalate 5 MG tablet 5 mg PO DAILY Primary Care Provider: Enda Pereyra Referrals: Edna Pereyra MD [Primary Care Provider] - Disposition Disposition: Acute Care [facility]
[2022-02-17] MEDS: 0.9% Normal Saline 1,000 ML 150 ML IV (12:57)
[2022-02-17] MEDS: Morphine 4 MG/ML Syringe IV (12:57)
[2022-02-17] MEDS: Ondansetron 4 MG/2 ML Vial IV (12:57)
[2022-02-17 13:10] LABS: Absolute Lymphocyte Count 1.51 X10^3/uL (0.83-4.51); Absolute Neutrophil Count 5.5 X10^3/uL (2.0-7.7); Basophil# 0.02 X10^3/uL; Basophil% 0.3 % (0-1); Eosinophil# 0.03 X10^3/uL; Eosinophils% 0.4 % (0-5); Hematocrit 43.8 % (37-47); Hemoglobin 14.6 g/dL (12.0-15.0); Lymphocyte # 1.51 X10^3/ul (0.83-4.51); Lymphocyte % 20.2 % (19-41); Mean Corp Hgb Conc 33.3 g/dL (32-36); Mean Corpuscular Hgb 28.4 pg (27.0-32.0); Mean Corpuscular Volume 85.2 fL (81-99); Mean Platelet Vol. 10.3 fl (6.2-12.0); Monocyte# 0.44 X10^3/uL; Monocyte% 5.9 % (0-10); NRBC Flagged by Analyzer 0 % (0-5); Neutrophil # 5.45 X10^3/uL (2.7-7.7); Neutrophil % 72.9 % (47-70); Platelet Count 253 K/mm3 (150-450); RBC Distribution Width CV 12.8 % (11.6-14.6); RBC Distribution Width SD 39.7 fl (35.1-43.9); Red Blood Count 5.14 M/mm3 (4.2-5.4); White Blood Count 7.5 K/mm3 (4.4-11.0)
[2022-02-17 13:26] LABS: Internal QC Validated? YES +Cl - CLEAR BKGD; Pregnancy, Serum, hCG Quali. NEGATIVE Negative
[2022-02-17 13:30] LABS: AST(SGOT) 144 U/L (15-37); Alanine Aminotransfer ALT/SGPT 123 U/L (13-56); Albumin, Serum 4.4 g/dL (3.2-5.0); Alkaline Phosphatase 76 U/L (45-117); Anion Gap 6 (5-15); BUN 9 mg/dL (7-18); BUN/Creat Ratio 12.9 RATIO (10-20); Bilirubin, Direct 0.65 mg/dL (0.00-0.30); Calcium,Total 10.4 mg/dL (8.5-10.1); Chloride 102 mmol/L (98-107); EST Glomerular Filtration Rate 102 mL/min (>60); Est Glom Filt Rate - Afr Amer 123 mL/min (>60); Estimated Creatinine Clearance 114.23 ml/min; Globulin 4.1 g/dL (2.2-4.2); Glucose 97 mg/dL (74-106); Lipase 98 U/L (73-393); Protein, Total 8.5 g/dL (6.4-8.2); Sodium Level 137 mmol/L (136-145)
--- NOTE | 2022-02-17 14:35 | NURSING ---
MED SURG BORTZ CHOLEDOCHOLITHIASIS
--- NOTE | 2022-02-17 15:18 | HP.PCM_ITS ---
HPI - General General Date of Admission: 02/17/22 Chief Complaint: Abdominal pain HPI Narrative MICHELLE NUÑEZ, is a 36 F who presents to [facility] with complaints of epigastric abdominal pain that radiated around to her back on both sides. She states this pain woke her out of sleep at approximately 645 this morning. Significantly is not associated with nausea or vomiting. Mrs. Nuñez has not noticed a change in her bowel movements. She denies any experience of fever with this current episode. Patient's emergency room evaluation notable for comprehensive metabolic panel which showed mild elevations of her liver function studies as well as mild hyperbilirubinemia. Her ultrasound was also remarkable for evidence of cholelithiasis with a significantly dilated common bile duct at over 12 mm and showed evidence of a stones duct within this duct. Patient has a history of DVT which she states was approximately a month and a half after the delivery of her son. She reports that she was on Lovenox injections for a short period of time, but denies any ongoing anticoagulation. She also has not aware of any hypercoagulability work-up that was performed following this issue. She does report that she was recently seen with a staff assistant and a specimen of her gum was sent for rule out possible autoimmune disorder. She also describes spontaneously getting hives and having frequent welts of her skin for no clear reason. Her only prior abdominal surgery was a section with her last child. [facility] Medical History History of DVT (deep vein thrombosis) History of pre-eclampsia Home Medications NK 02/17/22 [History Last Taken Unknown] Allergy/AdvReac Type Severity Reaction Status Date / Time bee venom protein (honey bee) Allergy Anaphylaxis Verified 02/17/22 12:17 Surgical History (Updated 02/17/22 @ 15:08 by Kat Ho) H/O microdiscectomy Social History Smoking Status: Never smoker Vital Signs Vital Signs Vital Signs: 02/17/22 12:16 02/17/22 14:37 02/17/22 15:15 Temperature 98 F 97.9 F 98.5 F Temperature Source Temporal Temporal Oral Pulse Rate 75 80 64 Respiratory Rate 16 16 16 Blood Pressure 121/66 H 128/64 H 118/77 Blood Pressure Mean 84 85 90 Blood Pressure Source Monitor Blood Pressure Position Sitting Blood Pressure Location Left Arm Pulse Ox 100 99 99 Oxygen Delivery Method Room Air Room Air Room Air Weight Weight: 179 lb 10.828 oz Body Mass Index (BMI) 27.3 Physical Exam Const alert, oriented x3 and no apparent distress General Appearance: cooperative Resp normal respiratory effort GI GI Narrative: Normal habitus. Nondistended. No scars. No visible herniation. Soft with tenderness to palpation of the right upper quadrant. Technically negative [place] sign, but increased tenderness with deep inspiration Results Lab / Micro Data Result Diagrams: 02/17/22 13:00 02/17/22 13:00 Labs: Laboratory Results - last 24 hr 02/17/22 13:00: WBC 7.5, RBC 5.14, Hgb 14.6, Hct 43.8, MCV 85.2, MCH 28.4, MCHC 33.3, RDW Std Deviation 39.7, RDW Coeff of Diana 12.8, Plt Count 253, MPV 10.3, Immature Gran % (Auto) 0.300, Neut % (Auto) 72.9 H, Lymph % (Auto) 20.2, [place] % (Auto) 5.9, Eos % (Auto) 0.4, Baso % (Auto) 0.3, Absolute Neuts (auto) 5.5, Absolute Lymphs (auto) 1.51, Nucleated RBC % 0 02/17/22 13:00: Sodium 137, Potassium 4.0, Chloride 102, Carbon Dioxide 29.0, Anion Gap 6, BUN 9, Creatinine 0.70, Estim Creat Clear Calc 114.23, Est GFR (MDRD) Af Amer 123, Est GFR (MDRD) Non-Af 102, BUN/Creatinine Ratio 12.9, Glucose 97, Calcium 10.4 H, Total Bilirubin 1.30 H, Direct Bilirubin 0.65 H, AST 144 H, ALT 123 H, Alkaline Phosphatase 76, Total Protein 8.5 H, Albumin 4.4, Globulin 4.1, Lipase 98 02/17/22 13:00: Serum , Qual NEGATIVE Radiology Impression Gallbladder Ultrasound 02/17/22 12:38 IMPRESSION: Mild hepatomegaly. Multiple gallstones. Dilated common bile duct with a gallstone within it. Electronically Signed: Herminio Giron MD at 13:55 EDT , Assessment & Plan Assessment/Plan (1) Choledocholithiasis: PLAN: Is a 36-year-old female, with minimal past medical history, who presents with signs and symptoms of choledocholithiasis. This diagnosis has been described in detail to the patient and her father, who is present at bedside, and they have had the opportunity ask questions for any clarification. They state they generally understand this diagnosis and the prescribed treatment?which I have recommended laparoscopic cholecystectomy with evaluation by gastroenterology for possible ERCP with stone extraction. In my independent conferencing with gastroenterology, the have tentative plans to perform this ERCP later today. Therefore we will proceed with the following plan: Neuro: As needed acetaminophen, as needed Dilaudid Pulm/CV: No current issues, however with patient's history of DVTs, will likely prescribe 1 dose of 5000 units heparin subcu for perioperative DVT chemoprophylaxis FEN/GI: Trend CMP, strict n.p.o. for procedure today and then n.p.o. again at midnight : No current issues Heme/ID: Trend CBC, treat empirically with Zosyn 3.375 given ductal obstruction Endo: No current issues Proph: SCDs and probable subcu heparin as above Dispo: Admit to inpatient
--- NOTE | 2022-02-17 15:24 | EKG12_ITS ---
Test Reason : PRE OP Blood Pressure : / mmHG Vent. Rate : 066 BPM Atrial Rate : 066 BPM P-R Int : 150 ms QRS Dur : 088 ms QT Int : 412 ms P-R-T Axes : 036 027 018 degrees QTc Int : 431 ms Normal sinus rhythm Normal ECG Confirmed by YONNY ALCALA, EM ([id number]), order editor ZEFERINO LINDQUIST ([id number]) on 02/19/2022 12:49:29 PM Referred By: Confirmed By:EM BLANCAS MD
[2022-02-17] MEDS: Lactated Ringers 1,000 ML 15 ML IV (15:44)
--- NOTE | 2022-02-17 16:54 | CON.PCM_ITS ---
Assessment & Plan Assessment/Plan (1) Choledocholithiasis: PLAN: She will undergo ERCP removal of stones, sphincterotomy, possible dilation and possible stent placement. She was explained alternatives, risk, benefits include not withstanding bleeding, infection, sepsis, perforation, need for emergent surgery and . She was also explained risk of post therapy pancreatitis and agreed to symptoms risk through verbal written consent. She will have an ASA of 1. HPI Consult Data Date of Consult: 02/17/22 HPI Narrative Reason for Consultation: Choledocholithiasis HPI Narrative: MICHELLE GARNETT, is a 36 F who presents with epigastric pain.? She felt well yest erday.? She tried taking Nexium and Tums without improvement.? She went to urgent care where lab work was sent but she does not yet have results.? They scheduled an ultrasound for 3 PM.? Because of her pain they chose to send her to the emergency room.? Patient states has had flares like this in the past that only lasted a short time.? She has never had her gallbladder evaluated. She has a history of DVT 1 month . She also has a family history of combined variable immunodeficiency and her mother. She has been experiencing some uticaria of the extremities and was recently diagnosed with oral ulcers. In the ED laboratory analysis showed liver function test and liver enzymes consistent with obstructive physiology. She had an ultrasound that showed very enlarged common bile duct to 12 mm with filling defects in the gallbladder and the distal common bile duct. I was consulted for ERCP. [facility] Medical History History of DVT (deep vein thrombosis) History of pre-eclampsia Home Medications NK 02/17/22 [History Last Taken Unknown] Allergy/AdvReac Type Severity Reaction Status Date / Time bee venom protein (honey bee) Allergy Anaphylaxis Verified 02/17/22 12:17 Surgical History (Updated 02/17/22 @ 15:08 by Kat Ho) H/O microdiscectomy Social History Smoking Status: Never smoker ROS Review of Systems ROS Unobtainable: other Constitutional Constitutional: Denies fatigue, fever(s), poor appetite, weight gain or weight loss ENT HEENT: Denies mouth lesions Cardiovascular Cardiovascular: Denies abdominal bloating, abdominal edema or abdominal pain Respiratory/Chest Respiratory/Chest: Denies change in mental status, change in phlegm color, chest congestion or chest tightness Gastrointestinal Gastrointestinal: Denies belching, bloating, change in bowel habits, change in stool character, chewing difficulty, coffee ground emesis, constipation, cramping, diarrhea, dyspepsia, dysphagia, early satiety, excessive flatus, fecal incontinence, heartburn, hematemesis, hematochezia, hemorrhoids, loose stools, melena, nausea, odynophagia, rectal bleeding, tenesmus, vomiting or weight changes Genitourinary Genitourinary: Denies abdominal discomfort, burning urination or itching Musculoskeletal Musculoskeletal: Reports as per HPI; Denies muscle weakness or myalgias Integumentary Integumentary: Denies jaundice Neurologic Neurologic: Denies lack of coordination or weakness Psychiatric Psychiatric: Denies confusion, depression, memory loss, mood swings, paranoia or suicidal ideation Endocrine Endocrinology: Denies systems reviewed and no addt'l complaints, except as documented Hematologic/Lymphatic Hematologic/Lymphatic: Denies anemia, easy bleeding, easy bruising or lymphadenopathy Allergic/Immunologic Allergic/Immunologic: Denies systems reviewed and no addt'l complaints, except as documented Physical Exam Const alert, oriented x3 and no apparent distress General Appearance: cooperative Resp normal respiratory effort GI GI Narrative: Normal habitus. Nondistended. No scars. No visible herniation. Soft with tenderness to palpation of the right upper quadrant. Technically negative [place] sign, but increased tenderness with deep inspiration Lab / Micro Data Result Diagrams: 02/17/22 13:00 02/17/22 13:00 Labs: Laboratory Results - last 24 hr 02/17/22 13:00: WBC 7.5, RBC 5.14, Hgb 14.6, Hct 43.8, MCV 85.2, MCH 28.4, MCHC 33.3, RDW Std Deviation 39.7, RDW Coeff of Diana 12.8, Plt Count 253, MPV 10.3, Immature Gran % (Auto) 0.300, Neut % (Auto) 72.9 H, Lymph % (Auto) 20.2, [place] % (Auto) 5.9, Eos % (Auto) 0.4, Baso % (Auto) 0.3, Absolute Neuts (auto) 5.5, Absolute Lymphs (auto) 1.51, Nucleated RBC % 0 02/17/22 13:00: Sodium 137, Potassium 4.0, Chloride 102, Carbon Dioxide 29.0, Anion Gap 6, BUN 9, Creatinine 0.70, Estim Creat Clear Calc 114.23, Est GFR (MDRD) Af Amer 123, Est GFR (MDRD) Non-Af 102, BUN/Creatinine Ratio 12.9, Glucose 97, Calcium 10.4 H, Total Bilirubin 1.30 H, Direct Bilirubin 0.65 H, AST 144 H, ALT 123 H, Alkaline Phosphatase 76, Total Protein 8.5 H, Albumin 4.4, Globulin 4.1, Lipase 98 02/17/22 13:00: Serum , Qual NEGATIVE Radiology Impression Gallbladder Ultrasound 02/17/22 12:38 IMPRESSION: Mild hepatomegaly. Multiple gallstones. Dilated common bile duct with a gallstone within it. Electronically Signed: Herminio Giron MD at 13:55 EDT , Charges/Coding Visit Charges Inpatient E&M: 85163 Init Hosp L2
--- NOTE | 2022-02-17 17:50 | RAD_ITS ---
CLINICAL HISTORY: Female, 36 years old. Pain. PROCEDURE: ERCP FLUOROSCOPY TIME (if supplied): Not provided TECHNIQUE: Fluoroscopic guidance was provided during performance of ERCP. 6 procedural images were presented for interpretation. The initial image demonstrates endoscope in the duodenum with cannulization of the CBD. There is contrast within a mildly Dilated CBD with multiple filling defects distally suggesting cholelithiasis. Subsequent images demonstrate balloon dilatation of the CBD. The final image demonstrates a biliary stent satisfactory position. Please refer to procedural report for further details. RAD/ERCP Biliary/Pancreas IMPRESSION: Fluoroscopy provided during the performance of an ERCP. Electronically Signed: Altaf Carroll DO at 18:19 EDT ,
--- NOTE | 2022-02-17 18:05 | OP.ERCP_ITS ---
Patient Name: Donna Nuñez Procedure Date: 02/17/2022 5:03 PM Date of : 1985 Age: 36 Procedure: ERCP Indications: Bile duct stone(s) Providers: Magno Kowalski DO Medicines: Monitored Anesthesia Care Patient Profile: This is a 36 year old female. Refer to note in patient chart for documentation of history and physical. Patient has symptoms of acute right upper quadrant abdominal pain and acute jaundice. This patient has no history of previous ERCP. Complications: No immediate complications. Procedure: Pre-Anesthesia Assessment: - Prior to the procedure, a History and Physical was performed, and patient medications and allergies were reviewed. The patient is competent. The risks and benefits of the procedure and the sedation options and risks were discussed with the patient. All questions were answered and informed consent was obtained. Patient identification and proposed procedure were verified by the physician in the pre-procedure area. Mental Status Examination: alert and oriented. Airway Examination: normal oropharyngeal airway and neck mobility. Respiratory Examination: clear to auscultation. CV Examination: normal. Prophylactic Antibiotics: The patient does not require prophylactic antibiotics. Prior Anticoagulants: The patient has taken no previous anticoagulant or antiplatelet agents. After reviewing the risks and benefits, the patient was deemed in satisfactory condition to undergo the procedure. The anesthesia plan was to use general anesthesia. Immediately prior to administration of medications, the patient was re-assessed for adequacy to receive sedatives. The heart rate, respiratory rate, oxygen saturations, blood pressure, adequacy of pulmonary ventilation, and response to care were monitored throughout the procedure. The physical status of the patient was re-assessed after the procedure. After obtaining informed consent, the scope was passed under direct vision. Throughout the procedure, the patient's blood pressure, pulse, and oxygen saturations were monitored continuously. The Duodenoscope was introduced through the mouth, and advanced to the duodenum and used for direct visualization of the bile duct. The ERCP was accomplished without difficulty. The patient tolerated the procedure well. Scope In: 5:44:34 PM Scope Out: 5:56:08 PM Total Procedure Duration Time 0 hours 11 minutes 34 seconds Findings: The cartridge gauger film was normal. The esophagus was successfully intubated under direct vision. The scope was advanced to a normal major papilla in the descending duodenum without detailed examination of the pharynx, larynx and associated structures, and upper GI tract. The upper GI tract was grossly normal. The bile duct was deeply cannulated with the short-nosed traction sphincterotome. Contrast was injected. I personally interpreted the bile duct images. There was brisk flow of contrast through the ducts. Image quality was excellent. Contrast extended to the entire biliary tree. The entire biliary tree except for the cystic duct and gallbladder and lower third of the main bile duct contained multiple stones, the largest of which was 6 mm in diameter. The entire biliary tree except for the cystic duct and gallbladder and main bile duct were diffusely dilated, with a stone causing an obstruction. The largest diameter was 12 mm. A straight Roadrunner wire was passed into the biliary tree. A 5 mm biliary sphincterotomy was made with a traction (standard) sphincterotome using ERBE electrocautery. There was no post-sphincterotomy bleeding. The biliary tree was swept with a 15 mm balloon starting at the bifurcation. Sludge was swept from the duct. All stones were removed. Dilation of the common bile duct with a 6-7-8 mm balloon (to a maximum balloon size of 8 mm) dilator was successful. One 10 Fr by 7 cm temporary stent with two external flaps and two internal flaps was placed 5 cm into the common bile duct. Bile flowed through the stent. The stent was in good position. Impression: - The entire main bile duct was dilated, with a stone causing an obstruction. - Choledocholithiasis was found. Complete removal was accomplished by biliary sphincterotomy and balloon extraction. - A biliary sphincterotomy was performed. - The biliary tree was swept. Procedure Code(s): --- Professional --- 23324, Endoscopic retrograde cholangiopancreatography (ERCP); with placement of endoscopic stent into biliary or pancreatic duct, including pre- and post-dilation and guide wire passage, when performed, including sphincterotomy, when performed, each stent 44125, Endoscopic retrograde cholangiopancreatography (ERCP); with removal of calculi/debris from biliary/pancreatic duct(s) 73209, 26, Endoscopic catheterization of the biliary ductal system, radiological supervision and interpretation CPT copyright 2017 [employer]. All rights reserved. The codes documented in this report are preliminary and upon clinic charge nurse review may be revised to meet current compliance requirements. Magno Kowalski DO 02/17/2022 6:05:20 PM This report has been signed electronically. Number of Addenda: 0 Note Initiated On: 02/17/2022 5:03 PM
--- NOTE | 2022-02-17 18:05 | OP.CCLET_ITS ---
02/17/2022 Edna Pereyra Re : ERCP procedure for Donna Nuñez Dear Hafsa This procedure was performed on Thursday, February 17, 2022. My impressions and recommendations are as follows: Impressions : - The entire main bile duct was dilated, with a stone causing an obstruction. - Choledocholithiasis was found. Complete removal was accomplished by biliary sphincterotomy and balloon extraction. - A biliary sphincterotomy was performed. - The biliary tree was swept. Recommendations : My findings are described in the full procedure note, which is enclosed. If I can be of further assistance, please feel free to contact me at . Sincerely, Magno Kowalski, 02/17/2022 6:05:20 PM This report has been signed electronically.
[2022-02-17] MEDS: 0.9% Normal Saline 1,000 ML 125 ML IV (19:01)
[2022-02-18] VITALS (11 sets, daily range): BP systolic 110–130; BP diastolic 63–79; PULSE 67–102; RESP 14–18; TEMP 36.7–37; O2SAT 95–100; BMI 27.2
--- NOTE | 2022-02-18 | GALL_PTH ---
PATIENT: MICHELLE GARNETT LOC: MS3 U#:[id number] AGE/SX: 36/F ROOM: MS312 RE02/17/[address]: Dr. Siva Min MD : 1985 BED: 1 DIS: 02/19/2022 SPEC #: [id number] RECD: 02/18/22 12:57 STATUS: ARTHUR ERIC #: [id number] CHAPINCITO: 02/18/22 00:[address]: Siva Min DEPT: SURGICAL PATHOLOGY RECD BY: Chau Luna ENTERED: 02/18/22 12:57 SP TYPE: BRYAN MORRISON DR: MD Dr. Magno Mock DO Tissues: Gallbladder, NOS Procedures: Surgery Specimen Level III HEADER OPERATION: Laparoscopic cholecystectomy and IOC PRE-OP DIAGNOSIS: Choledocholithiasis TISSUE SUBMITTED: Gallbladder MICROSCOPIC DIAGNOSIS Gallbladder, cholecystectomy: Chronic cholecystitis and cholelithiasis. AM:bryan 02/19/2022 MICROSCOPIC DESCRIPTION Slides are reviewed. GROSS DESCRIPTION Received is one container labeled with the patient's name and designated gallbladder. The specimen consists of a gallbladder measuring 9 cm in length and up to 3 cm in diameter. The external surface is pink-walker, smooth and glistening for the most part. Focally it is granular, hemorrhagic and contains cautery artifact. The gallbladder contains green-yellow mucoid bile. Present in the container and also in the gallbladder are multiple greenish-yellow, multifaceted stones measuring in aggregate 6 x 5 x 1.5 cm and 0.5 to 1.5 cm in greatest dimension. The mucosa is bile-stained and without any mass lesions. The gallbladder wall measures up to 0.2 cm in thickness. Bronze Plater sections from the gallbladder and the cystic duct are submitted in one cassette. / SJ:bryan 02/18/2022 TC:3 CPT: 73244
[2022-02-18] MEDS: 0.9% Normal Saline 1,000 ML 125 ML IV (03:12)
[2022-02-18 05:52] LABS: Absolute Neutrophil Count 3.5 X10^3/uL (2.0-7.7); Hematocrit 40.2 % (37-47); Hemoglobin 13.3 g/dL (12.0-15.0); Lymphocyte % 16.1 % (19-41); Mean Corp Hgb Conc 33.1 g/dL (32-36); Mean Corpuscular Hgb 28.2 pg (27.0-32.0); Mean Corpuscular Volume 85.4 fL (81-99); Mean Platelet Vol. 10.7 fl (6.2-12.0); Monocyte# 0.17 X10^3/uL; Monocyte% 3.9 % (0-10); NRBC Flagged by Analyzer 0 % (0-5); Neutrophil # 3.45 X10^3/uL (2.7-7.7); Neutrophil % 79.5 % (47-70); Platelet Count 248 K/mm3 (150-450); RBC Distribution Width SD 40.5 fl (35.1-43.9); Red Blood Count 4.71 M/mm3 (4.2-5.4); White Blood Count 4.3 K/mm3 (4.4-11.0)
[2022-02-18 06:39] LABS: AST(SGOT) 115 U/L (15-37); Alanine Aminotransfer ALT/SGPT 277 U/L (13-56); Albumin, Serum 3.6 g/dL (3.2-5.0); Alkaline Phosphatase 70 U/L (45-117); Anion Gap 7 (5-15); BUN 7 mg/dL (7-18); BUN/Creat Ratio 12.1 RATIO (10-20); Calcium,Total 8.5 mg/dL (8.5-10.1); Chloride 106 mmol/L (98-107); Creatinine, Serum 0.58 mg/dL (0.55-1.02); EST Glomerular Filtration Rate 126 mL/min (>60); Est Glom Filt Rate - Afr Amer 152 mL/min (>60); Estimated Creatinine Clearance 137.87 ml/min; Globulin 3.7 g/dL (2.2-4.2); Glucose 116 mg/dL (74-106); Phosphorus 4.4 mg/dL (2.5-4.9); Potassium 3.8 mmol/L (3.5-5.1); Protein, Total 7.3 g/dL (6.4-8.2); Sodium Level 139 mmol/L (136-145)
[2022-02-18] MEDS: Acetaminophen 500 MG Tablet PO (08:06)
--- NOTE | 2022-02-18 09:00 | PN.SURG_ITS ---
Subjective Subjective Patient seen and examined during AM rounds. She is found resting in bed this morning. She does report a significant headache and some associated nausea. However, her abdominal pain is greatly improved. Objective Data Objective Data Vital Signs: Vital Signs Temp Pulse Resp BP Pulse Ox O2 Del Method 98.4 F 67 16 110/65 97 Room Air 02/18/22 03:04 02/18/22 03:04 02/18/22 03:04 02/18/22 03:04 02/18/22 03:04 02/18/22 03:04 Oxygen Delivery Method Room Air Weight: 179 lb 10.828 oz Body Mass Index (BMI) 27.2 Intake & Output: Intake and Output for Last 24 Hours 02/16/22 02/17/22 02/18/22 23:59 23:59 23:59 Intake Total 519 / 519 1050 / 1050 Balance 519 / 519 1050 / 1050 Lab / Micro Data Result Diagrams: 02/18/22 05:11 02/18/22 05:11 Labs: Laboratory Results - last 24 hr 02/17/22 13:00: WBC 7.5, RBC 5.14, Hgb 14.6, Hct 43.8, MCV 85.2, MCH 28.4, MCHC 33.3, RDW Std Deviation 39.7, RDW Coeff of Diana 12.8, Plt Count 253, MPV 10.3, Immature Gran % (Auto) 0.300, Neut % (Auto) 72.9 H, Lymph % (Auto) 20.2, [place]atte % (Auto) 5.9, Eos % (Auto) 0.4, Baso % (Auto) 0.3, Absolute Neuts (auto) 5.5, Absolute Lymphs (auto) 1.51, Nucleated RBC % 0 02/17/22 13:00: Sodium 137, Potassium 4.0, Chloride 102, Carbon Dioxide 29.0, Anion Gap 6, BUN 9, Creatinine 0.70, Estim Creat Clear Calc 114.23, Est GFR (MDRD) Af Amer 123, Est GFR (MDRD) Non-Af 102, BUN/Creatinine Ratio 12.9, Glucose 97, Calcium 10.4 H, Total Bilirubin 1.30 H, Direct Bilirubin 0.65 H, AST 144 H, ALT 123 H, Alkaline Phosphatase 76, Total Protein 8.5 H, Albumin 4.4, Globulin 4.1, Lipase 98 02/17/22 13:00: Serum , Qual NEGATIVE 02/18/22 05:11: WBC 4.3 L, RBC 4.71, Hgb 13.3, Hct 40.2, MCV 85.4, MCH 28.2, MCHC 33.1, RDW Std Deviation 40.5, RDW Coeff of Diana 13.0, Plt Count 248, MPV 10.7, Immature Gran % (Auto) 0.500, Neut % (Auto) 79.5 H, Lymph % (Auto) 16.1 L, [place] % (Auto) 3.9, Eos % (Auto) 0.0, Baso % (Auto) 0.0, Absolute Neuts (auto) 3.5, Absolute Lymphs (auto) 0.70 L, Nucleated RBC % 0 02/18/22 05:11: Sodium 139, Potassium 3.8, Chloride 106, Carbon Dioxide 26.0, Anion Gap 7, BUN 7, Creatinine 0.58, Estim Creat Clear Calc 137.87, Est GFR (MDRD) Af Amer 152, Est GFR (MDRD) Non-Af 126, BUN/Creatinine Ratio 12.1, Glucose 116 H, Calcium 8.5, Phosphorus 4.4, Magnesium 2.0, Total Bilirubin 0.90, AST 115 H, ALT 277 H, Alkaline Phosphatase 70, Total Protein 7.3, Albumin 3.6, Globulin 3.7, Albumin/Globulin Ratio 1.0 Radiography Diagnostic Testing: Radiology Impression Gallbladder Ultrasound 02/17/22 12:38 IMPRESSION: Mild hepatomegaly. Multiple gallstones. Dilated common bile duct with a gallstone within it. Electronically Signed: Herminio Giron MD at 13:55 EDT , Endo Retro Cholangiopancreatogram 02/17/22 17:50 IMPRESSION: Fluoroscopy provided during the performance of an ERCP. Electronically Signed: Altaf Carroll DO at 18:19 EDT Reading Location ID and State: [facility] / [place] Tel [phone], Service support , Physical Exam Const oriented x3 Constitutional Narrative: Mild distress with headache Resp normal respiratory effort GI GI Narrative: Nondistended, soft, nontender to palpation x4 quadrants (including with inspiration) Assessment & Plan Assessment/Plan (1) Choledocholithiasis: PLAN: Patient hospital day 2 and post procedure day 1 from ERCP with stone removal by GI. Repeat laboratories overall shown improvement following this procedure. Patient has been n.p.o. since midnight in anticipation of laparoscopic cholecystectomy with possible intraoperative cholangiogram. I again reviewed the procedure details as well as post procedure expectations. Patient denies any further questions. We will plan to proceed to the OR later this morning for this procedure. Given patient's history of a peripartum DVT, have ordered a single dose of subcutaneous heparin 5000 units on-call to the OR for preoperative administration. Patient to be returned to the floor following surgery.
[2022-02-18] MEDS: Lactated Ringers 1,000 ML 15 ML IV (09:30)
[2022-02-18] MEDS: Heparin Injection 5,000 UNITS/ML Syringe 5000 UNITS SC (09:54)
--- NOTE | 2022-02-18 10:30 | RAD_ITS ---
CLINICAL HISTORY: Female, 36 years old. Cholecystectomy PROCEDURE: CHOLANGIOGRAM - intraoperative CONSENT: Informed consent obtained SEDATION: General FLUOROSCOPY TIME (if supplied): (0:28) minutes/seconds. 96 C-arm films obtained in one cine loop, 83 in the other Placement of the catheter and the procedure were performed by: Dr. Min Fluoroscopy was provided by Saji Urbano, who was present in the room time of the procedure. TECHNIQUE: (All elements of maximal sterile barrier technique followed, including US elements as applicable) After removal of the gallbladder, the cystic duct remnant was cannulized and contrast injected into the biliary tree in a retrograde manner. The cystic duct is dilated and serpiginous. The extrahepatic common bile duct as well as the intrahepatic bile ducts are mildly dilated. There are lucencies noted within the extrahepatic common bile duct which may represent stones or air bubbles. There is free flow of contrast into the duodenum. No extravasation of contrast noted outside the lumen of the biliary tree is noted. RAD/Cholangiogram/ O R,Initial IMPRESSION: Although there is free flow of contrast into the duodenum, there are multiple filling defects within the extrahepatic common bile duct consistent with retained common bile duct stones. These were also noted on preoperative ERCP. The cystic duct remnant, extra hepatic common bile duct and biliary radicles are mildly dilated. No extravasation of contrast outside the lumen of the duodenum Electronically Signed: Jan Balderas MD at 11:23 EDT ,
--- NOTE | 2022-02-18 11:40 | PCM.OPRPT ---
Problems Associated Problem List Diagnoses (1) Choledocholithiasis: Report of Operation Date of Procedure: 02/18/22 Pre-Operative Diagnosis: Choledocholithiasis Post-Operative Diagnosis: 1. Choledocholithiasis (with persistent common duct stones) 2. Acute on chronic cholecystitis Surgery/Procedure Performed:: 1. Laparoscopic cholecystectomy 2. Intraoperative cholangiogram Description of Surgical Findings:: 1. Evidence of cholecystitis with numerous adhesions to the level of the gallbladder infundibulum to the omentum and duodenum 2. Significantly dilated cystic duct terminating into dilated common duct 3. 2 cystic arteries (1 anterior 1 posterior) both terminating directly into the gallbladder 4. Cholangiogram showing retained common bile duct stones but free flow of contrast into the duodenum. There was retrograde flow into the intrahepatic biliary ducts Surgeon: Siva Min residential mental health worker: Tigist Calloway Type of Anesthesia: General/Supplemental Anesthesiologist: Romario Grissom Specimen's removed: Gallbladder Estimated Blood Loss (mL): 50 Description of Procedure: After proper identification in the preoperative holding area the patient was brought to the operating room where she was positioned supine on the operating room table. Preoperatively DVT prophylaxis with 5000 units heparin was administered subcu and SCDs were placed while a interval dose of 2 g Ancef preoperative antibiotics were also administered. General anesthesia was then induced. Patient's abdomen was prepped and draped in usual sterile fashion. A formal timeout was conducted to confirm both patient and the procedure. Procedure was begun with a supraumbilical incision which was extended deeply down to the level of the fascia. The fascia was elevated and incised, as well as the peritoneum. A finger sweep was performed to ensure there were no underlying adhesions and a 12 mm balloon trocar was inserted. Pneumoperitoneum was established at 15 mmHg. 3 additional trocars were placed in the epigastrium (12 mm) and in the right upper quadrant (2 x 5 mm). Inspection of the peritoneum revealed no inadvertent injury to the viscera below. The gallbladder was visualized with significant inflammation?particularly approaching the gallbladder infundibulum with attachments to both the underlying duodenum and omentum. The gallbladder fundus was then grasped and elevated cephalad and these adhesions were sequentially lysed as they are isolated with blunt dissection. Then, using careful dissection the peritoneum was opened and the structures of the hepatocystic triangle were delineated. The cystic duct was isolated and found to be significantly dilated along its entire course as it entered the dilated common duct below. Directly deep to the node of Calot there was an anterior cystic artery and visible through the triangle there was a second cystic artery visible posteriorly?but greater in caliber. Given the significant dilation of the cystic duct I sought to verify identity with a cholangiogram. However with this ductal dilation our usual clips would not have been occlusive so I chose to perform this imaging with a Anderson clamp. The clamp was applied across the distal cystic duct and the needle tip catheter was advanced into the cystic duct. Under fluoroscopy a cholangiogram was then obtained showing a standard length (but dilated) cystic duct flowing into a common bile duct with antegrade flow of contrast into the duodenum at the level of the Endo biliary stent, but there were a number (at least 4) large filling defects within the common duct. There was also retrograde flow through the common hepatic duct into the right and left hepatic ducts. This portion of the procedure was then terminated and we withdrew the catheter and Anderson clamp. I attempted to partially occlude the cystic duct with a few clips to minimize contamination of the peritoneum with gallbladder contents and then completely transected the cystic duct. A 0 PDS Endoloop was laparoscopically arranged about the cystic duct stump and stenotic securely to occlude the cystic duct os. As the cystic duct was secured a gallstone was extruded from the duct and placed securely on the antrum of the stomach for later removal with the gallbladder specimen. The anterior cystic artery was triply clipped and sharply divided. This permitted for exposure of the posterior artery that had just been visible through the triangle previously. Indeed, this vessel was seen directly entering the gallbladder so it too was clipped and sharply divided. The gallbladder was then removed from the gallbladder fossa with the use of electrocautery. Selective electrocautery was used to obtain hemostasis in the gallbladder fossa. The gallbladder was placed in an Endo Catch bag along with the loose cystic duct stones and removed from the peritoneum. Morison's pouch was irrigated and the effluent was suctioned free of the peritoneum. Hemostasis was again confirmed. Pneumoperitoneum was evacuated and the fascia of the 12 mm port sites was closed with #1Vicryl in a [id number] fashion. A total of 30 mL of 0.75% bupivacaine diluted 2:1 (for a concentration of 0.25%) local anesthetic was injected at the port sites for postoperative pain control. The skin of each port site was then closed in subcuticular fashion using 4-0 Monocryl. Steri-Strips and bandages were applied as dressings. Patient tolerated the procedure well without any apparent complications. On emergence from their anesthetic the patient was taken to PACU for ongoing recovery. Complications None Admit VTE Documentation VTE Present on Admission: Yes VTE Pharm Prophylaxis ordered?: Yes Procedures Digestive 40xxx-49xxx: [id number] Laparo cholecystectomy/graph
[2022-02-18] MEDS: oxyCODONE 5 MG Tablet PO ×2 (13:12→19:37)
--- NOTE | 2022-02-18 13:30 | CASEMGMT ---
RN CM FOLD SKIVER CM to room to meet with patient for initial transition planning/care coordination assessment. NICOLAS FRANCES introduced self and role at [facility]. Pt voices understanding and consents to assessment at this time. Pt resting in bed in no distress at this time. , Marcial, @ bedside. Pt is A/O at this time and answers all questions appropriately. Care providers, pharmacy, and demographics verified/updated at this time. PCP: Dr Pereyra Specialists: none Preferred Pharmacy: [facility] Retail Insurance: [employer] Prescription Benefit: none Living Will/HPOA: Pt does not currently have LW/HCPOA and declines info at this time. Pt and made aware that she can contact SW as an out-pt and make appt in the future if she decides she would like to talk with someone about this or would like to utilize [facility] social work for advanced directive completion. Addiction Medicine Physician Rac card with information and contact number has been provide. They express understanding. LNOK: Marcial Living Arrangements: Lives w/ and 3 children in ranch-style home. Independent. Transportation: Pt states drives self and states no transportation concerns at this time. also drives DME: Denies using any DME and denies needs. HHC/SNF: No hx of either. No needs identified. Pt wishes to return home and states has no concerns with going home at time of discharge. CM to follow for any discharge planning/needs. Pt and voice no concerns/needs at this time. Advised them to ask for CM if any further questions/concerns/needs arise. They voice understanding. PLAN: Home Cathie WINN RN, CM
[2022-02-18] MEDS: 0.9% Normal Saline 1,000 ML 50 ML IV (19:00)
[2022-02-19 02:00] VITALS: BP 122/74; PULSE 86; RESP 16; TEMP 36.9; O2SAT 95
[2022-02-19] MEDS: oxyCODONE 5 MG Tablet PO ×2 (02:40→09:30)
[2022-02-19] MEDS: 0.9% Saline Lock 10 ML Syringe IV (02:40)
[2022-02-19 05:00] VITALS: BP 129/79; PULSE 73; RESP 16; TEMP 36.8; O2SAT 100
[2022-02-19 07:43] LABS: Absolute Lymphocyte Count 2.75 X10^3/uL (0.83-4.51); Absolute Neutrophil Count 4.8 X10^3/uL (2.0-7.7); Basophil# 0.02 X10^3/uL; Basophil% 0.2 % (0-1); Eosinophil# 0.02 X10^3/uL; Eosinophils% 0.2 % (0-5); Hematocrit 36.2 % (37-47); Hemoglobin 11.7 g/dL (12.0-15.0); Lymphocyte # 2.75 X10^3/ul (0.83-4.51); Lymphocyte % 33.8 % (19-41); Mean Corp Hgb Conc 32.3 g/dL (32-36); Mean Corpuscular Hgb 28.1 pg (27.0-32.0); Mean Corpuscular Volume 86.8 fL (81-99); Mean Platelet Vol. 10.3 fl (6.2-12.0); Monocyte# 0.49 X10^3/uL; NRBC Flagged by Analyzer 0 % (0-5); Neutrophil # 4.83 X10^3/uL (2.7-7.7); Neutrophil % 59.6 % (47-70); Platelet Count 240 K/mm3 (150-450); RBC Distribution Width CV 13.5 % (11.6-14.6); RBC Distribution Width SD 42.4 fl (35.1-43.9); Red Blood Count 4.17 M/mm3 (4.2-5.4); White Blood Count 8.1 K/mm3 (4.4-11.0)
[2022-02-19 08:00] VITALS: BP 120/76; PULSE 86; RESP 16; TEMP 36.7; O2SAT 94
[2022-02-19 08:25] LABS: ALB/GLOB Ratio 1.1 RATIO (0.9-2.4); AST(SGOT) 27 U/L (15-37); Alanine Aminotransfer ALT/SGPT 149 U/L (13-56); Albumin, Serum 3.4 g/dL (3.2-5.0); Alkaline Phosphatase 51 U/L (45-117); Anion Gap 4 (5-15); BUN 9 mg/dL (7-18); Calcium,Total 8.4 mg/dL (8.5-10.1); Chloride 107 mmol/L (98-107); Creatinine, Serum 0.64 mg/dL (0.55-1.02); EST Glomerular Filtration Rate 112 mL/min (>60); Est Glom Filt Rate - Afr Amer 136 mL/min (>60); Estimated Creatinine Clearance 124.94 ml/min; Globulin 3.2 g/dL (2.2-4.2); Glucose 116 mg/dL (74-106); Phosphorus 1.9 mg/dL (2.5-4.9); Potassium 3.2 mmol/L (3.5-5.1); Protein, Total 6.6 g/dL (6.4-8.2); Sodium Level 139 mmol/L (136-145)
--- NOTE | 2022-02-19 08:41 | DCINST_ITS ---
Discharge Instructions Diet Discharge Diet: Light diet - advance as tolerated Activity Discharge Activity: May Not Drive (3-5 days) Dressing / Incision Call your doctor if your incision/area has: Continuous Slow Oozing, Sudden I ncreased Bleeding, Increased Pain/ Swelling, Increased Redness, Foul Smelling Discharge and Swelling at the incision site Call your doctor if you observe: Fever of 101 or Higher Remove Dressing in: 1 day Cleanse incision/area with: Soap & Water Follow Up Care Please Follow Up With: Siva Min MD When: Please call our office for a follow-up appointment at [phone]. Schedule your follow-up for 1 week from discharge Test Results: Test results from this visit will be discussed in further detail at your follow- up appointment, if applicable. Discharge Plan Admission Admit Date/Time: 02/17/22 15:19 Primary Reason for Your Visit: Choledocholithiasis Attending Provider: Siva Min Primary Care Provider: Edna Pereyra Consulting Providers: Magno Kowalski Instructions Additional Instructions / Restrictions: Recommend no lifting greater than 15 pounds for 3-4 weeks You may remove op-sites starting tonight or tomorrow You may shower tomorrow You are prescribed a narcotic pain medication as needed. You may transition to Tylenol or ibuprofen as needed for pain. You may experience constipation, you may take Miralax as needed for constipation. You will need to follow-up in 1 week Discharge Orders/Prescriptions Prescriptions: New oxycodone 5 mg Tablet 5 mg PO Q6H PRN PRN (Reason: Pain Score 6-10) 3 Days Qty: 14 0RF Referrals / Follow Up: Edna Pereyra MD [Primary Care Provider] -
--- NOTE | 2022-02-19 10:16 | NURSING ---
SITTING ON BEDSIDE, DENIES NEEDS. AWARE DIET IS ADVANCED TO REGULAR W/NO CARBONATION
[2022-02-19 11:00] VITALS: BP 122/78; PULSE 72; RESP 17; TEMP 36.8; O2SAT 97
[2022-02-19] MEDS: Acetaminophen 500 MG Tablet PO (12:26)
[2022-02-19] MEDS: Na Biphos/Potassium Phosphate PACKET 1 PACKET PO (12:53)
[2022-02-19 14:00] VITALS: BP 120/74; PULSE 78; RESP 16; TEMP 36.7; O2SAT 96
[2022-02-19 14:07] VITALS: BP 120/74; PULSE 78; RESP 16; TEMP 36.7; O2SAT 96
[2022-02-19 14:09] LABS: Anti-Centromere B Ab <0.2 AI (0.0-0.9); Anti-Chromatin <0.2 AI (0.0-0.9); Anti-Jo <0.2 AI (0.0-0.9); Anti-Scleroderma-70 AB <0.2 AI (0.0-0.9); RNP Ab <0.2 AI (0.0-0.9); SJOGREN'S Anti-SS-A test < 0.2 AI (0.0-0.9); SJOGREN'S Anti-SS-B test < 0.2 AI (0.0-0.9); Smith Ab <0.2 AI (0.0-0.9)
--- NOTE | 2022-02-19 16:56 | PCM.DC.SUM ---
Providers Date of Admission: 02/17/22 Date of Discharge: 02/19/22 Primary Care Physician: Dr. Edna Pereyra MD Consultations 02/17/22 16:33 Consult: Gastroenterology Routine Consulting Provider: Magno Kowalski Reason for Consult: Choledocholithiasis EMERGENT Consult: No MD Notified: Yes Date Notified: 02/17/22 Time Notified: 16:34 Method of Notification: ED Physician Initiated Reason For Visit: CHOLEDOCHOLITHIASIS Diagnosis Discharge Diagnosis (1) Choledocholithiasis: Status: Acute Code(s): K80.50 - Calculus of bile duct without cholangitis or cholecystitis without obstruction Medications at Discharge Home Medications oxycodone 5 mg tablet 5 mg PO Q6H PRN PRN Pain Score 6-10 3 days #14 tabs 02/19/22 Hospital Course Operations cholecystecomy and ERCP Summary of Care Provided Minutes Spent on Discharge: 25 Hospital Course: Patient is a 36 y/o F who presented to the ED with abdominal pain with failed attempt of relief at home. Liver enzymes were elevated. RUQ u/s demonstrated multiple gallstones and dilated common bile duct. Dr. Kowalski performed an ERCP with stent placement on 02/17. Dr. Min performed a laparoscopic cholecystectomy with intraoperative cholangiogram on 02/18. Cholangiogram showed retained gallstones. Upon discharge, patient's liver enzymes were trending down. Patient noted slight amount of incisional pain. Patient tolerated regular diet without any nausea, vomiting. Weight / BMI Weight Weight: 179 lb 10.828 oz Body Mass Index (BMI) 27.2 ABG / Lab / Microbiology Data Result Diagrams: 02/19/22 07:36 02/19/22 07:36 Laboratory: Laboratory Results - last 24 hr 02/19/22 07:36: WBC 8.1, RBC 4.17 L, Hgb 11.7 L, Hct 36.2 L, MCV 86.8, MCH 28.1, MCHC 32.3, RDW Std Deviation 42.4, RDW Coeff of Diana 13.5, Plt Count 240, MPV 10.3, Immature Gran % (Auto) 0.200, Neut % (Auto) 59.6, Lymph % (Auto) 33.8, [place] % (Auto) 6.0, Eos % (Auto) 0.2, Baso % (Auto) 0.2, Absolute Neuts (auto) 4.8, Absolute Lymphs (auto) 2.75, Nucleated RBC % 0 02/19/22 07:36: Sodium 139, Potassium 3.2 L, Chloride 107, Carbon Dioxide 28.0, Anion Gap 4 L, BUN 9, Creatinine 0.64, Estim Creat Clear Calc 124.94, Est GFR (MDRD) Af Amer 136, Est GFR (MDRD) Non-Af 112, BUN/Creatinine Ratio 14.0, Glucose 116 H, Calcium 8.4 L, Phosphorus 1.9 L, Magnesium 2.0, Total Bilirubin 0.70, AST 27, ALT 149 H, Alkaline Phosphatase 51, Total Protein 6.6, Albumin 3.4, Globulin 3.2, Albumin/Globulin Ratio 1.1 D/C Instructions Discharge Diet: Light diet - advance as tolerated Call your doctor if your incision/area has: Continuous Slow Oozing, Sudden Increased Bleeding, Increased Pain/ Swelling, Increased Redness, Foul Smelling Discharge and Swelling at the incision site Call your doctor if you observe: Fever of 101 or Higher Cleanse incision/area with: Soap & Water Please Follow Up With: Siva Min MD When: Please call our office for a follow-up appointment at [phone]. Schedule your follow-up for 1 week from discharge Meaningful Use Info Meaningful Use Diagnoses (Choose all that apply): None applicable Discharge Plan Admission Admit Date/Time: 02/17/22 15:19 Primary Reason for Your Visit: Choledocholithiasis Attending Provider: Siva Min Primary Care Provider: Edna Pereyra Consulting Providers: aMgno Kowalski Instructions Additional Instructions / Restrictions: Recommend no lifting greater than 15 pounds for 3-4 weeks You may remove op-sites starting tonight or tomorrow You may shower tomorrow You are prescribed a narcotic pain medication as needed. You may transition to Tylenol or ibuprofen as needed for pain. You may experience constipation, you may take Miralax as needed for constipation. You will need to follow-up in 1 week Discharge Orders/Prescriptions Prescriptions: New oxycodone 5 mg Tablet 5 mg PO Q6H PRN PRN (Reason: Pain Score 6-10) 3 Days Qty: 14 0RF Referrals / Follow Up: Edna Pereyra MD [Primary Care Provider] - Disposition Disposition (needs filled in before D/C Order can be placed): Home, Self Care Charges/Coding Visit Charges Inpatient E&M: 72551 Disch Hosp (no charge)
[2022-02-19 16:58] LABS: Anti-dsDNA Ab 3 IU/mL (0-9)
[2022-02-19 17:08] LABS: Endomysial Antibody IgA Negative (Negative)
[2022-02-20 09:34] LABS: Deamidated Gliadin IgA 9 units (0-19); Deamidated Gliadin IgG 2 units (0-19); Immunoglobulin A 449 mg/dL (87-352); t-Transglutaminase IgA <2 U/mL (0-3)
[2022-02-26 20:07] LABS: Cytoplasmic Ab (C-ANCA) <1:20 titer (Neg:<1:20); Immunoglobulin A 395 mg/dL (87-352); Immunoglobulin E 104 IU/mL (6-495); Immunoglobulin G 1159 mg/dL (586-1602); Immunoglobulin M 194 mg/dL (26-217)
[2022-02-27 15:33] LABS: Perinuclear Ab (P-ANCA) <1:20 titer (Neg:<1:20)
== END 2022-02-19 15:06 | disposition home or self-care (01) | DRG 419 ==
LOC: ED 14:16 → MS3 15:12
PROVIDERS: Internal Medicine Gastroenterology; Admitting Provider Surgery; Emergency Provider Emergency Medicine; PCP Internal Medicine; Visit Provider Surgery
PROC: 0FC98ZZ Extirpation of Matter from Common Bile Duct, Via Natural or Artificial Opening Endoscopic (ICD-10-PCS; CPT 43260; principal; 2022-02-17 16:25)
PROC: 0FT44ZZ Resection of Gallbladder, Percutaneous Endoscopic Approach (ICD-10-PCS; CPT 47610; principal; 2022-02-18 09:10)
DX: K80.67 Calculus of gallbladder and bile duct with acute and chronic cholecystitis with obstruction (principal)
CPT/HCPCS: 36415; 74300; 74330; 76000; 76705; 80048; 80053; 80076; 82784; 82785; 83516; 83690; 83735; 84100; 84703; 85025; 86225; 86235; 86255; 86256; 88304; 93005; 99284; J7030; J7120; A4216; J2405; J3490

== ENCOUNTER → 2022-02-17 | Outpatient (CLI) | payer BC, SELFPAY ==
[2022-02-17 12:54] LABS: Lipase 125 U/L (73-393)
== END | disposition home or self-care (01) ==
LOC: LABSPEC 12:30
PROVIDERS: PCP Internal Medicine; Referring Provider Physician Assistant; Visit Provider Physician Assistant
DX: R10.13 Epigastric pain (principal)
CPT/HCPCS: 83690

== ENCOUNTER → 2022-03-02 | Outpatient (CLI) | payer BC, SELFPAY ==
[2022-03-02 09:40] LABS: ALB/GLOB Ratio 1.1 RATIO (0.9-2.4); AST(SGOT) 10 U/L (15-37); Alanine Aminotransfer ALT/SGPT 35 U/L (13-56); Alkaline Phosphatase 56 U/L (45-117); Anion Gap 9 (5-15); BUN 10 mg/dL (7-18); BUN/Creat Ratio 15.2 RATIO (10-20); Calcium,Total 8.9 mg/dL (8.5-10.1); Chloride 103 mmol/L (98-107); Creatinine, Serum 0.66 mg/dL (0.55-1.02); EST Glomerular Filtration Rate 109 mL/min (>60); Est Glom Filt Rate - Afr Amer 132 mL/min (>60); Free T3 2.9 pg/mL (2.18-3.98); Globulin 3.8 g/dL (2.2-4.2); Glucose 92 mg/dL (74-106); Protein, Total 7.8 g/dL (6.4-8.2); Sodium Level 139 mmol/L (136-145); T4 Total, Thyroxin 10.3 ug/dL (4.8-13.9); Thyroid Stim Hormone (TSH) 3.37 uIU/mL (0.358-3.74)
== END | disposition home or self-care (01) ==
LOC: PAVLAB 08:12
PROVIDERS: PCP Internal Medicine; Referring Provider Surgery; Visit Provider Surgery
DX: R74.8 Abnormal levels of other serum enzymes (principal); E04.1 Nontoxic single thyroid nodule
CPT/HCPCS: 36415; 80053; 84436; 84443; 84481

== ENCOUNTER → 2022-03-09 | Outpatient (CLI) | payer BC, SELFPAY ==
--- NOTE | 2022-03-09 13:12 | US_ITS ---
STUDY: THYROID ULTRASOUND REASON FOR EXAM: Female, 36 years old. thyroid nodule TECHNIQUE: Ultrasound evaluation of the thyroid was performed with real-time and static kelsey-scale imaging. COMPARISON: ct chest 3. FINDINGS: RIGHT LOBE: The right lobe of the thyroid gland measures 4.9x1.9 cm. There is a homogeneous echotexture. There are no demonstrated solid, cystic or complex lesions. LEFT LOBE: The left lobe of the thyroid gland measures 5x1.5 cm. There is a homogeneous echotexture. There is a nodule. Nodule is 5 x 4 x 4 mm. The lesion is cystic with regular margins and sahara nodular doppler flow and ring down artifact. ISTHMUS: The isthmus measures 6 mm. US/Thyroid IMPRESSION: There are left nodules. This nodule is mixed cystic and solid, hypoechoic, [id number], smoothly marginated and it has peripherally ring down artifact which can represent calcifications. TI-RADS points: 5. TI-RADS category: TR4. This nodule is moderately suspicious but no FNA or follow-up is necessary given the small size of this nodule.. Electronically Signed: Philip Yanez MD at 14:17 EST ,
== END | disposition home or self-care (01) ==
LOC: US 13:11
PROVIDERS: PCP Internal Medicine; Referring Provider Surgery; Visit Provider Surgery
DX: E04.1 Nontoxic single thyroid nodule (principal)
CPT/HCPCS: 76536

== ENCOUNTER 2022-05-05 13:43 | Day surgery (SDC) | payer BC, SELFPAY ==
[2022-05-05] VITALS (10 sets, daily range): BP systolic 113–125; BP diastolic 68–89; PULSE 74–98; RESP 16–18; TEMP 37.7–38.1; O2SAT 94–100; BMI 29.8
[2022-05-05] MEDS: Lactated Ringers 1,000 ML 15 ML IV ×2 (13:55→17:42)
[2022-05-05 14:14] LABS: Internal QC Validated? YES +Cl - CLEAR BKGD; Pregnancy, Urine Negative Negative
--- NOTE | 2022-05-05 16:07 | HP.PCM_ITS ---
History and Physical Date of Admission: 05/05/22 Assessment/Plan (1) Choledocholithiasis: PLAN: She will undergo ERCP stent removal. She was explained alternatives, risk, benefits include not withstanding bleeding, infection, sepsis, perforation, need for emergent surgery and .? She was also explained risk of post therapy pancreatitis and agreed to symptoms risk through verbal written consent.? She will have an ASA of 1. I have examined the patient and the H&P has been reviewed. There are no clinical changes since date of exam. HPI Consult Data HPI Narrative Reason for Consultation: Choledocholithiasis HPI Narrative: MICHELLE GARNETT, is a 36 F who presents with epigastric pain.? She felt well yesterday.? She tried taking Nexium and Tums without improvement.? She went to urgent care where lab work was sent but she does not yet have results.? They scheduled an ultrasound for 3 PM.? Because of her pain they chose to send her to the emergency room.? Patient states has had flares like this in the past that only lasted a short time.? She has never had her gallbladder evaluated.? She has a history of DVT 1 month .? She also has a family history of combined variable immunodeficiency and her mother.? She has been experiencing some uti caria of the extremities and was recently diagnosed with oral ulcers.? In the ED laboratory analysis showed liver function test and liver enzymes consistent with obstructive physiology.? She had an ultrasound that showed very enlarged common bile duct to 12 mm with filling defects in the gallbladder and the distal common bile duct.? I was consulted for ERCP. I performed ERCP with stone removal and stent placement for CBD stricture in anticipation for laparoscopic cholecystectomy. She did well and comes in today for ERCP with stent removal. [facility] Medical History? History of DVT (deep vein thrombosis) History of pre-eclampsia Home Medications NK? 02/17/22 [History Last Taken Unknown] Allergy/AdvReac Type Severity Reaction Status Date / Time bee venom protein (honey bee) Allergy ? Anaphylaxis Verified 02/17/22 12:17 Surgical History?(Updated 02/17/22 @ 15:08 by Kat Ho) H/O microdiscectomy Social History? Smoking Status:? Never smoker ROS Review of Systems ROS Unobtainable: other Constitutional Constitutional: Denies fatigue, fever(s), poor appetite, weight gain or weight loss ENT HEENT: Denies mouth lesions Cardiovascular Cardiovascular: Denies abdominal bloating, abdominal edema or abdominal pain Respiratory/Chest Respiratory/Chest: Denies change in mental status, change in phlegm color, chest congestion or chest tightness Gastrointestinal Gastrointestinal: Denies belching, bloating, change in bowel habits, change in stool character, chewing difficulty, coffee ground emesis, constipation, cramping, diarrhea, dyspepsia, dysphagia, early satiety, excessive flatus, fecal incontinence, heartburn, hematemesis, hematochezia, hemorrhoids, loose stools, melena, nausea, odynophagia, rectal bleeding, tenesmus, vomiting or weight changes Genitourinary Genitourinary: Denies abdominal discomfort, burning urination or itching Musculoskeletal Musculoskeletal: Reports as per HPI; Denies muscle weakness or myalgias Integumentary Integumentary: Denies jaundice Neurologic Neurologic: Denies lack of coordination or weakness Psychiatric Psychiatric: Denies confusion, depression, memory loss, mood swings, paranoia or suicidal ideation Endocrine Endocrinology: Denies systems reviewed and no addt'l complaints, except as documented Hematologic/Lymphatic Hematologic/Lymphatic: Denies anemia, easy bleeding, easy bruising or lymphadenopathy Allergic/Immunologic Allergic/Immunologic: Denies systems reviewed and no addt'l complaints, except as documented Physical Exam Const alert, oriented x3 and no apparent distress General Appearance: cooperative Resp normal respiratory effort GI GI Narrative: Normal habitus.? Nondistended.? No scars.? No visible herniation.? Soft with tenderness to palpation of the right upper quadrant.? Technically negative [place] sign, but increased tenderness with deep inspiration Lab / Micro Data Result Diagrams: 02/17/22 13:00? 02/17/22 13:00? Labs: Laboratory Results - last 24 hr 02/17/22 13:00:?WBC 7.5, RBC 5.14, Hgb 14.6, Hct 43.8, MCV 85.2, MCH 28.4, MCHC 33.3, RDW Std Deviation 39.7, RDW Coeff of Diana 12.8, Plt Count 253, MPV 10.3, Immature Gran % (Auto) 0.300,?Neut % (Auto) 72.9 H, Lymph % (Auto) 20.2, [place] % (Auto) 5.9, Eos % (Auto) 0.4, Baso % (Auto) 0.3, Absolute Neuts (auto) 5.5, Absolute Lymphs (auto) 1.51, Nucleated RBC % 0 02/17/22 13:00:?Sodium 137, Potassium 4.0, Chloride 102, Carbon Dioxide 29.0, Anion Gap 6, BUN 9, Creatinine 0.70, Estim Creat Clear Calc 114.23, Est GFR (MDRD) Af Amer 123, Est GFR (MDRD) Non-Af 102, BUN/Creatinine Ratio 12.9, Glucose 97,?Calcium 10.4 H,?Total Bilirubin 1.30 H,?Direct Bilirubin 0.65 H,?AST 144 H,?ALT 123 H, Alkaline Phosphatase 76,?Total Protein 8.5 H, Albumin 4.4, Globulin 4.1, Lipase 98 02/17/22 13:00:?Serum , Qual NEGATIVE Radiology Impression Gallbladder Ultrasound? 02/17/22 12:38 IMPRESSION: Mild hepatomegaly. Multiple gallstones. Dilated common bile duct with a gallstone within it. ?
--- NOTE | 2022-05-05 16:30 | RAD_ITS ---
EXAM: INTRAOPERATIVE CHOLANGIOGRAM FLUOROSCOPY TIME: 35 seconds RADIATION DOSE: 6 mGy TOTAL NUMBER OF IMAGES: 1 COMPARISON: None. PROVIDED CLINICAL HISTORY: STONES PAIN TECHNIQUE: The examination was performed with physician in attendance. Under fluoroscopic observation, fluoroscopic images were obtained in the operating room. FINDINGS: First image demonstrates surgical instruments overlying the [id number]. Contrast is identified in a cannulated common bile duct. Retrograde contrast is notseen in the pancreatic duct. Contrast is noted in the proximal duodenum. Contrast is seen in the intrahepatic ducts. RAD/ERCP Biliary Only IMPRESSION: Fluoroscopic assistance images were obtained. Pertinent findings noted above. Electronically Signed: Philip Yanez MD at 17:13 EST ,
--- NOTE | 2022-05-05 16:54 | OP.CCLET_ITS ---
05/05/2022 Edna Pereyra Re : ERCP procedure for Donna Nuñez Dear Hafsa This procedure was performed on Thursday, May 05, 2022. My impressions and recommendations are as follows: Impressions : - The entire main bile duct was dilated, with a stone causing an obstruction. - The patient has had a cholecystectomy. - Choledocholithiasis was found. Complete removal was accomplished by biliary sphincterotomy and balloon extraction. - A biliary sphincterotomy was performed. - The biliary tree was swept. - The lower third of the main bile duct was successfully dilated. - One stent was removed from the biliary tree. Recommendations : My findings are described in the full procedure note, which is enclosed. If I can be of further assistance, please feel free to contact me at . Sincerely, Magno Kowalski, 05/05/2022 4:54:12 PM This report has been signed electronically.
--- NOTE | 2022-05-05 16:54 | OP.ERCP_ITS ---
Patient Name: Donna Nuñez Procedure Date: 05/05/2022 4:12 PM Date of : 1985 Age: 36 Procedure: ERCP Indications: Bile duct stone(s), Stent removal Providers: Magno Kowalski DO Medicines: Monitored Anesthesia Care Patient Profile: This is a 36 year old female. Refer to note in patient chart for documentation of history and physical. She is status post ERCP for biliary evaluation and ERCP for stent within the past three months. Complications: No immediate complications. Procedure: Pre-Anesthesia Assessment: - Prior to the procedure, a History and Physical was performed, and patient medications and allergies were reviewed. The risks and benefits of the procedure and the sedation options and risks were discussed with the patient. All questions were answered and informed consent was obtained. Patient identification and proposed procedure were verified by the physician in the pre-procedure area. Mental Status Examination: alert and oriented. Airway Examination: normal oropharyngeal airway and neck mobility. Respiratory Examination: clear to auscultation. CV Examination: normal. Prophylactic Antibiotics: The patient does not require prophylactic antibiotics. Prior Anticoagulants: The patient has taken no previous anticoagulant or antiplatelet agents. ASA Grade Assessment: II - A patient with mild systemic disease. After reviewing the risks and benefits, the patient was deemed in satisfactory condition to undergo the procedure. The anesthesia plan was to use general anesthesia. Immediately prior to administration of medications, the patient was re-assessed for adequacy to receive sedatives. The heart rate, respiratory rate, oxygen saturations, blood pressure, adequacy of pulmonary ventilation, and response to care were monitored throughout the procedure. The physical status of the patient was re-assessed after the procedure. After obtaining informed consent, the scope was passed under direct vision. Throughout the procedure, the patient's blood pressure, pulse, and oxygen saturations were monitored continuously. The Duodenoscope was introduced through the mouth, and advanced to the duodenum and used to inject contrast into the bile duct. The ERCP was accomplished without difficulty. The patient tolerated the procedure well. Scope In: 4:32:26 PM Scope Out: 4:47:36 PM Total Procedure Duration Time 0 hours 15 minutes 10 seconds Findings: The financial aids officer film was normal. The esophagus was successfully intubated under direct vision. The scope was advanced to a normal major papilla in the descending duodenum without detailed examination of the pharynx, larynx and associated structures, and upper GI tract. The upper GI tract was grossly normal. A 0.035 inch x 450 cm angled stiff Hydra Jagwire was passed into the biliary tree. The short-nosed traction sphincterotome was passed over the guidewire and the bile duct was then deeply cannulated. Contrast was injected. I personally interpreted the bile duct images. There was brisk flow of contrast through the ducts. Image quality was excellent. Contrast extended to the entire biliary tree. Opacification of the lower third of the main bile duct was successful. The maximum diameter of the ducts was 10 mm. The main bile duct contained four stones, the largest of which was 6 mm in diameter. The main bile duct was diffusely dilated, with a stone causing an obstruction. The largest diameter was 8 mm. A cholecystectomy had been performed. A 5 mm biliary sphincterotomy was made with a traction (standard) sphincterotome using ERBE electrocautery. There was no post-sphincterotomy bleeding. The biliary tree was swept with a 15 mm balloon starting at the bifurcation. Sludge was swept from the duct. All stones were removed. Dilation of the lower third of the main bile duct with an 8-9-10 mm balloon (to a maximum balloon size of 10 mm) dilator was successful. One stent was removed from the biliary tree using a snare. Impression: - The entire main bile duct was dilated, with a stone causing an obstruction. - The patient has had a cholecystectomy. - Choledocholithiasis was found. Complete removal was accomplished by biliary sphincterotomy and balloon extraction. - A biliary sphincterotomy was performed. - The biliary tree was swept. - The lower third of the main bile duct was successfully dilated. - One stent was removed from the biliary tree. Procedure Code(s): --- Professional --- 42653, 59, Endoscopic retrograde cholangiopancreatography (ERCP); with trans-endoscopic balloon dilation of biliary/pancreatic duct(s) or of ampulla (sphincteroplasty), including sphincterotomy, when performed, each duct 32512, 51, Endoscopic retrograde cholangiopancreatography (ERCP); with removal of foreign body(s) or stent(s) from biliary/pancreatic duct(s) 08904, Endoscopic retrograde cholangiopancreatography (ERCP); with removal of calculi/debris from biliary/pancreatic duct(s) 70253, Endoscopic catheterization of the biliary ductal system, radiological supervision and interpretation CPT copyright 2017 [employer]. All rights reserved. The codes documented in this report are preliminary and upon litigation docket manager review may be revised to meet current compliance requirements. Magno Kowalski DO 05/05/2022 4:54:12 PM This report has been signed electronically. Number of Addenda: 0 Note Initiated On: 05/05/2022 4:12 PM
== END 2022-05-05 19:21 | disposition home or self-care (01) ==
LOC: EN 13:44 → AC 13:45
PROVIDERS: Anesthesiology; PCP Internal Medicine; Referring Provider Internal Medicine; Visit Provider Internal Medicine Gastroenterology
PROC: (CPT 43260; principal; 2022-05-05 14:25)
DX: K80.51 Calculus of bile duct without cholangitis or cholecystitis with obstruction (principal); K83.8 Other specified diseases of biliary tract; Z86.718 Personal history of other venous thrombosis and embolism
CPT/HCPCS: 43277; 43275; 43264; 74328; 76000; 81025; J7120; J2405

== ENCOUNTER → 2022-05-18 | Outpatient (CLI) | payer BC, SELFPAY ==
--- NOTE | 2022-05-18 14:48 | NEURO ---
NCS and/or EMG Patient Report Ordering Doctor: Valarie Huff DATE OF SERVICE: 05/18/22 Indication: Several years of numbness in the right buttock, posterior thigh and heel. History of microdiscectomy surgery in July 2020. Evaluate for lumbar radiculopathy. Findings: Nerve conduction studies were performed in the right lower extremity. The right peroneal motor study recording the extensor digitorum brevis showed a normal amplitude, normal distal latency and normal conduction velocity. No conduction block or focal slowing was present across the fibular neck. The right tibial motor study recording the abductor hallucis brevis showed a reduced amplitude, normal distal latency and borderline conduction velocity. The left tibial motor study recording the abductor hallucis brevis showed a normal amplitude and was asymmetric with the right. Right sural sensory response showed a normal amplitude and conduction velocity. Right superficial peroneal sensory response showed a normal amplitude and conduction velocity. Needle EMG of the right lower extremity and lumbar paraspinal muscles was performed. Active denervation was present in the medial gastrocnemius muscle. Motor units in the biceps femoris were large amplitude and long duration with reduced recruitment. Motor units in the gastrocnemius could not be fully evaluated due to poor activation. All other motor unit morphology, activation and recruitment patterns were normal. Impression: This is an abnormal study. There is electrophysiologic evidence consistent with an active and chronic, right S1 radiculopathy. Clyde Medina D.O. Multi Select Codes Neurology Neurology Interp Codes: 09884-78 Musc test done w/n test comp (interp) and 50596-16 Nrv cndj tst 5-6 studies (interp)
== END | disposition home or self-care (01) ==
PROVIDERS: PCP Internal Medicine; Referring Provider Internal Medicine; Visit Provider Internal Medicine
DX: R20.0 Anesthesia of skin (principal); R20.2 Paresthesia of skin; L50.3 Dermatographic urticaria
CPT/HCPCS: 95886; 95909

== ENCOUNTER → 2022-06-12 | Outpatient (CLI) | payer BC, SELFPAY ==
[2022-06-12 12:41] LABS: Absolute Lymphocyte Count 1.51 X10^3/uL (0.83-4.51); Absolute Neutrophil Count 2.3 X10^3/uL (2.0-7.7); Basophil# 0.01 X10^3/uL; Basophil% 0.2 % (0-1); Eosinophil# 0.07 X10^3/uL; Eosinophils% 1.6 % (0-5); Hematocrit 42.2 % (37-47); Hemoglobin 13.4 g/dL (12.0-15.0); Lymphocyte # 1.51 X10^3/ul (0.83-4.51); Lymphocyte % 34.6 % (19-41); Mean Corp Hgb Conc 31.8 g/dL (32-36); Mean Corpuscular Hgb 28.3 pg (27.0-32.0); Mean Corpuscular Volume 89.2 fL (81-99); Mean Platelet Vol. 11.2 fl (6.2-12.0); Monocyte% 11.5 % (0-10); NRBC Flagged by Analyzer 0 % (0-5); Neutrophil # 2.26 X10^3/uL (2.7-7.7); Neutrophil % 51.9 % (47-70); Platelet Count 243 K/mm3 (150-450); RBC Distribution Width CV 12.6 % (11.6-14.6); RBC Distribution Width SD 41.5 fl (35.1-43.9); Red Blood Count 4.73 M/mm3 (4.2-5.4); White Blood Count 4.4 K/mm3 (4.4-11.0)
[2022-06-12 12:52] LABS: Vitamin B12 513 pg/mL (211-911); Vitamin D,25 Hydroxy 30.7 ng/mL
[2022-06-12 12:55] LABS: AST(SGOT) 12 U/L (15-37); Alanine Aminotransfer ALT/SGPT 28 U/L (13-56); Albumin, Serum 3.7 g/dL (3.2-5.0); Alkaline Phosphatase 57 U/L (45-117); Anion Gap 6 (5-15); BUN 12 mg/dL (7-18); BUN/Creat Ratio 18.3 RATIO (10-20); Calcium,Total 8.8 mg/dL (8.5-10.1); Chloride 106 mmol/L (98-107); Creatinine, Serum 0.66 mg/dL (0.55-1.02); EST Glomerular Filtration Rate 109 mL/min (>60); Est Glom Filt Rate - Afr Amer 132 mL/min (>60); Ferritin 44 ng/mL (8-252); Globulin 3.7 g/dL (2.2-4.2); Glucose 89 mg/dL (74-106); Iron 50 ug/dL (50-170); Iron Binding Capacity,Total 316 ug/dL (250-450); PERCENT IRON SATURATION 15.8 % (15.0-55.0); Potassium 4.4 mmol/L (3.5-5.1); Protein, Total 7.4 g/dL (6.4-8.2); Sodium Level 139 mmol/L (136-145); Thyroid Stim Hormone (TSH) 2.37 uIU/mL (0.358-3.74)
== END | disposition home or self-care (01) ==
LOC: BIMLAB 08:09
PROVIDERS: PCP Internal Medicine; Referring Provider Nurse Practitioner Family; Visit Provider Nurse Practitioner Family
DX: D50.9 Iron deficiency anemia, unspecified (principal); E56.9 Vitamin deficiency, unspecified; R53.83 Other fatigue
CPT/HCPCS: 36415; 80053; 82306; 82607; 82728; 83540; 83550; 84439; 84443; 85025

== ENCOUNTER → 2022-11-02 | Outpatient (CLI) | payer BC, SELFPAY ==
--- NOTE | 2022-11-02 08:00 | ECHOD_ITS ---
Reason For Study: SVT Procedure This was a 2D Doppler, Color Flow transthoracic echocardiogram. Exam performed in department. Left Ventricle Normal LV size. The estimated ejection fraction is 55 %. Normal diastology for age. No regional wall motion abnormalities noted. Right Ventricle Normal RV size. Normal systolic function. Atria Normal left atrium. Normal right atrium. No doppler evidence for ASD. Mitral Valve There is no mitral valve stenosis. Trivial mitral valve insufficiency. Tricuspid Valve There is no tricuspid stenosis. Trivial tricuspid valve insufficiency. Unable to estimate RV systolic pressure due to insufficient tricuspid regurgitant envelope. Aortic Valve Trisinus/trileaflet aortic valve. There is no aortic stenosis. No aortic valve insufficiency. Pulmonic Valve There is no pulmonic valvular stenosis. No pulmonic valve insufficiency. Great Vessels Normal aortic root. Pericardium/Pleural No pericardial effusion. MMode/2D Measurements & Calculations LVIDd: 5.3 cm IVSd: 0.87 cm Ao root diam: 3.1 cm LVIDs: 3.6 cm LVPWd: 0.61 cm RVDd: 3.6 cm FS: 33.0 % LAV(MOD-bp): 47.1 ml LVAd ap4: 30.0 cm2 SV(MOD-sp4): 39.8 ml LAV(MOD-bp) Indexed: 24.1 ml/m2 LVLd ap4: 8.7 cm LAV(MOD-sp2): 63.6 ml EDV(MOD-sp4): 84.8 ml LAV(MOD-sp4): 32.6 ml EDV(sp4-el): 87.6 ml LVAs ap4: 19.7 cm2 LVLs ap4: 7.7 cm ESV(MOD-sp4): 45.0 ml ESV(sp4-el): 42.8 ml EF(MOD-sp4): 47.0 % EF(sp4-el): 51.2 % SV(sp4-el): 44.8 ml LA A4 area: 14.3 cm2 LA dimension(2D): 3.3 cm RA A4 area: 12.7 cm2 Time Measurements MV dec time: 0.22 sec Doppler Measurements & Calculations MV E max mingo: 68.1 cm/sec Lat Peak E' Mingo: 22.0 cm/sec Med Peak E' Mingo: 11.9 cm/sec MV A max mingo: 40.4 cm/sec E/E' lat: 3.1 E/E' med: 5.7 MV E/A: 1.7 MV V2 max: 79.1 cm/sec Ao V2 max: 117.8 cm/sec MV max P.5 mmHg MV dec slope: 468.6 cm/sec2 Ao max P.6 mmHg MV V2 mean: 51.9 cm/sec Ao V2 mean: 84.7 cm/sec MV mean P.2 mmHg Ao mean P.3 mmHg MV V2 VTI: 23.9 cm Ao V2 VTI: 26.1 cm AV (velocity ratio): 0.92 LV V1 max: 109.2 cm/sec PA V2 max: 96.7 cm/sec LV V1 max P.8 mmHg PA V2 mean: 71.1 cm/sec LV V1 mean P.7 mmHg LV V1 mean: 76.0 cm/sec LV V1 VTI: 24.1 cm ECHO/Echo Complete Interpretation Summary The estimated ejection fraction is 55 %. Trivial mitral valve insufficiency. Ordering Physician: Valarie Huff Referring Physician: Valarie Huff Performed By: Shannon Cummings RCS
== END | disposition home or self-care (01) ==
LOC: CVS 07:59
PROVIDERS: PCP Internal Medicine; Referring Provider Internal Medicine; Visit Provider Internal Medicine
DX: I47.1 Supraventricular tachycardia (principal)
CPT/HCPCS: 93306

== ENCOUNTER → 2022-11-11 | Outpatient (CLI) | payer BC, SELFPAY | END | disposition home or self-care (01) | PROVIDERS: PCP Internal Medicine; Referring Provider Physician Assistant; Visit Provider Physician Assistant | DX: R30.0 Dysuria (principal) | CPT/HCPCS: 87086 ==

== ENCOUNTER → 2022-12-01 | Outpatient (CLI) | payer BC, SELFPAY ==
[2022-12-01 09:26] LABS: Hematocrit 40.8 % (37-47); Hemoglobin 13.1 g/dL (12.0-15.0); Mean Corp Hgb Conc 32.1 g/dL (32-36); Mean Corpuscular Hgb 28.5 pg (27.0-32.0); Mean Corpuscular Volume 88.9 fL (81-99); Mean Platelet Vol. 10.6 fl (6.2-12.0); Platelet Count 231 K/mm3 (150-450); RBC Distribution Width CV 12.6 % (11.6-14.6); RBC Distribution Width SD 40.9 fl (35.1-43.9); Red Blood Count 4.59 M/mm3 (4.2-5.4)
[2022-12-01 09:37] LABS: Internal QC Validated? YES +Cl - CLEAR BKGD; Pregnancy, Serum, hCG Quali. NEGATIVE Negative
[2022-12-01 09:42] LABS: Anion Gap 1 (5-15); BUN 10 mg/dL (7-18); BUN/Creat Ratio 15.8 RATIO (10-20); Calcium,Total 9.1 mg/dL (8.5-10.1); Chloride 105 mmol/L (98-107); Creatinine, Serum 0.63 mg/dL (0.55-1.02); EST Glomerular Filtration Rate 114 mL/min (>60); Est Glom Filt Rate - Afr Amer 137 mL/min (>60); Glucose 92 mg/dL (74-106); Potassium 4.4 mmol/L (3.5-5.1); Sodium Level 137 mmol/L (136-145)
--- NOTE | 2022-12-01 16:53 | PCM.TILTTABL ---
Staff Staff: Ginny Frausto and Keyla Oro Summary Protocol: 70 Degree Upright Tilt Pre Test Resting HR: 74 Pre Test Resting BP: 114/72 Minimum Test HR: 64 Maximum Test HR: 100 Minimum Test BP: 70/36 Maximum Test BP: 115/77 Reason for Test Termination: Syncope Physician Tilt Table Report Patient's Physicians Primary Care Physician: Valarie Huff Indications/Diagnosis: Dizziness Procedure Comments: The patient presented to the noninvasive suite in the postabsorptive state. Informed consent was obtained. Initial vitals were obtained. EKG was also obtained. The patient was then placed in the 70 degree head upright tilt position. Continuous EKG monitoring and blood pressure monitoring was performed. Patient maintained this position for another 20 minutes with no significant complaints and then was put back flat. Patient was administered 0.4 mg of sublingual nitroglycerin. The patient was then put back In the head upright tilt position sitting at 70 degrees. Blood pressure and EKG monitoring was performed. Approximately 4 minutes into the infusion patient started complaining of tunnel vision ringing in her ears was feeling clammy and diaphoretic and dropped her blood pressures to 70 systolic with a heart rate of 64 systolic. Patient was slowly put back in the recumbent position and recovered her blood pressure and heart rate. Summary: The above is suggestive of a vasodepressor syncopal response.
[2022-12-01 16:58] VITALS: BP 114/72; BP 115/77; BP 70/36
== END | disposition home or self-care (01) ==
LOC: CVS 09:12
PROVIDERS: PCP Internal Medicine; Referring Provider Internal Medicine; Visit Provider Internal Medicine
DX: R42 Dizziness and giddiness (principal); I47.1 Supraventricular tachycardia
CPT/HCPCS: 36415; 80048; 84703; 85027; 93660; J7040; A4216

== ENCOUNTER → 2023-03-01 | Outpatient (CLI) | payer BC, SELFPAY ==
--- NOTE | 2023-03-01 15:29 | US_ITS ---
INDICATION: nodule- f/u EXAMINATION: Ultrasound US Thyroid (eg thyroid, parathyroid, parotid) TECHNIQUE: Yepez scale and color doppler imaging was performed of the thyroid gland. TIRADS criteria was utilized. COMPARISON: 03/09/2022 ultrasound. FINDINGS: RIGHT THYROID LOBE: 5.1 x 1.5 x 1.8 cm with a volume of 6.8 mL. Homogeneous echotexture. Normal vascularity. No thyroid nodules. LEFT THYROID LOBE: 5.8 x 1.7 x 1.8 cm with a volume of 8.8 mL. Homogeneous echotexture. Normal vascularity. 5 mm nodule in the posterior left lobe which is mixed solid and cystic, anechoic to hypoechoic, wider than tall with smooth margins and no echogenic foci. ISTHMUS: 6 mm in AP diameter Homogeneous echotexture. Normal vascularity. No thyroid nodules. US/Thyroid IMPRESSION: 5 mm left lobe nodule, stable as compared to 03/09/2022, with no follow-up recommended per TIRADS criteria. Electronically Signed: Chris Cabrera DO at 4:19 EDT ,
== END | disposition home or self-care (01) ==
LOC: US 15:29
PROVIDERS: PCP Internal Medicine; Referring Provider Surgery; Visit Provider Surgery
DX: E04.1 Nontoxic single thyroid nodule (principal)
CPT/HCPCS: 76536